=== PATIENT | female | born 1930 | race Caucasian/White ===

== ENCOUNTER 2017-02-27 14:17 | Inpatient (IN) ==
--- NOTE | 2017-02-27 14:25 | Emergency Department Note ---
Disposition Clinical Impression: Confusion Urinary tract infection Qualifiers: Urinary tract infection type: acute cystitis Hematuria presence: without hematuria Qualified Code(s): N30.00 - Acute cystitis without hematuria Disposition: Admitted As Inpatient Condition: Fair Referrals: Moreno Lara Jr, MD [Primary Care Provider] - Forms: ED Satisfaction Letter Time of Disposition: 16:11 General Adult HPI - General Chief complaint: ED Urogenital-Female Stated complaint: urinary sx Time Seen by Provider: 02/27/17 14:23 Source: patient, family Mode of arrival: EMS Limitations: no limitations Nursing Notes Reviewed: Yes Vital Signs Reviewed: Yes - History of Present Illness HPI Narrative: 86-year-old who is scheduled for a knee replacement in [place] and was told to come in and be reevaluated for possible UTI. Family member state the patient's been confused and not eating or drinking very nauseated. Concern is that she has a UTI. Onset (ago): day(s) - Related Data Home Medications Medication Instructions Recorded Confirmed Captopril 100 mg PO QAM 10/14/16 11/16/16 Multivitamin [Multivitamins] 1 tab PO DAILY 10/14/16 11/16/16 Simvastatin [Zocor] 40 mg PO QAM 10/14/16 11/16/16 Metoprolol XL (24 HR) Succ [Toprol 100 mg PO DAILY 11/16/16 11/16/16 Xl] Previous Rx's Medication Instructions Recorded Docusate [Colace] 100 mg PO BID #30 capsule 11/18/16 OxyCODONE/APAP 5/325 [Percocet 1 each PO Q6HR PRN #30 tablet 11/18/16 5/325 MG] PredniSONE 60 mg PO DAILY #15 tablet 02/02/17 Allergies Allergy/AdvReac Type Severity Reaction Status Date / Time No Known Allergies Allergy Verified 10/14/16 07:21 Constitutional: Reports: fever. Denies: chills, weakness, weight change Eyes: Denies: eye pain, eye discharge, vision change ENT ED: Denies: ear pain, throat pain, dental pain, hearing loss, epistaxis, congestion, dysphagia Cardiovascular: Denies: chest pain, palpitations, dyspnea on exertion, edema, syncope Respiratory: Denies: cough, dyspnea, wheezes, hemoptysis, stridor Gastrointestinal: Denies: abdominal pain, nausea, vomiting, diarrhea, constipation, hematemesis, melena, hematochezia Genitourinary: Reports: dysuria. Denies: frequency, hematuria, discharge Musculoskeletal: Denies: back pain, neck pain, arthralgia, myalgia Integumentary: Denies: rash, abrasion, lesions Neurological: Reports: confusion. Denies: headache, weakness, numbness, paresthesias, abnormal gait, vertigo Psychiatric: Denies: anxiety, depression, suicidal thoughts, homicidal thoughts , auditory hallucinations, visual hallucinations Endocrine: Denies: fatigue Hematological/Lymphatic: Denies: easy bleeding, easy bruising Allergic/Immunologic: Denies: facial swelling, urticaria Past Medical History - Past Medical History Medical history: Reports: arthritis, coronary artery disease, hyperlipidemia, hypertension Psychiatric history: Reports: no psych history - Social History Smoking Status: Never smoker Smokeless Tobacco Status: No Alcohol use: Reports: none Drug use: Reports: none Physical Exam - General Limitations: no limitations General appearance: alert, in no apparent distress - Head Head exam: atraumatic, normocephalic, normal inspection - Eye Eye exam: Present: normal appearance, PERRL, EOMI - ENT ENT exam: normal exam, normal oropharynx, mucous membranes moist - Neck Neck exam: Present: normal inspection, full ROM, trachea midline - Chest Chest inspection: Present: normal inspection, symmetric chest wall rise - Respiratory Respiratory exam: Present: normal lung sounds bilaterally - Cardiovascular Cardiovascular exam: Present: regular rate, normal rhythm, normal heart sounds - Abdominal Exam Abdominal exam: Present: soft, tenderness. Absent: distention, guarding, rebound, rigidity Abdominal tenderness: Present: suprapubic - Extremities Exam Extremities exam: Present: normal inspection, full ROM. Absent: tenderness, pedal edema - Expanded Lower Extremity Exam Neurovascular/Tendon exam: Absent: motor deficit, sensory deficit, tendon deficit Gait: observed and normal - Back Exam Back exam: Present: normal inspection, full ROM. Absent: tenderness - Neurological Exam Neurological exam: Present: alert, oriented X3 - Psychiatric Psychiatric exam: Present: normal affect, normal mood - Skin Skin exam: Present: warm, dry, intact, normal color Course - Reevaluation(s) Reevaluation #1: 86-year-old female who has had some increased confusion is scheduled to have an knee replacement and workup preop questionable UTI. Lab work here notes a urinary tract infection. Time: 16:12 - Consultations Consultation #1: Discussed with Dr. Hastings, admit. Time: 16:11 Vital Signs Temperature 98.2 F 02/27/17 14:21 Pulse Rate 98 02/27/17 14:21 Respiratory Rate 18 02/27/17 14:21 Blood Pressure 145/83 02/27/17 14:21 O2 Sat by Pulse Oximetry 95 02/27/17 14:21 Temperature 98.2 F 02/27/17 14:21 Pulse Rate 98 02/27/17 14:21 Respiratory Rate 18 02/27/17 14:21 Blood Pressure 145/83 02/27/17 14:21 O2 Sat by Pulse Oximetry 95 02/27/17 14:21 Oxygen Delivery Oxygen Delivery Room Air Medical Decision Making - Lab Data Lab results reviewed: Yes I reviewed the patient's lab results. Result diagrams: 02/27/17 14:30 02/27/17 14:30 Lab Results 02/27/17 02/27/17 02/27/17 Range/Units 14:30 14:30 14:30 WBC 10.7 (4.3-11.1) K/mcL RBC 2.98 L (3.82-4.97) M/mcL Hgb 9.0 L (11.5-15.4) g/dL Hct 27.8 L (35.3-44.9) % MCV 93.3 (83.0-100.0) fL MCH 30.2 (28.0-33.3) pg MCHC 32.4 (31.6-35.5) g/dL RDW 12.6 (11.5-14.5) % Plt Count 576 H (140-400) K/mcL MPV 8.8 L (9.4-12.4) fL Immature Gran % 0.7 (0-4) % Seg Neutrophils % 77.7 % Lymphocytes % 11.2 % Monocytes % 10.0 % Eosinophils % 0.2 % Basophils % 0.2 % Neutrophils # 8.3 (1.6-8.9) K/mcL Lymphocytes # 1.2 (0.6-4.6) K/mcL Monocytes # 1.1 (0.0-1.3) K/mcL Eosinophils # 0.0 (0.0-0.6) K/mcL Basophils # 0.0 (0.0-0.2) K/mcL Sodium 131 L (136-145) mEq/L Potassium 3.7 (3.5-4.5) mEq/L Chloride 96 L (98-109) mEq/L Carbon Dioxide 25 (19-29) mEq/L BUN 16 (7-20) mg/dL Creatinine 0.58 (0.57-1.11) mg/dL Est GFR ( Amer) > 60 (> 60) Est GFR (Non-Af Amer) > 60 (> 60) BUN/Creatinine Ratio 28 H (6-26) Glucose 84 (70-99) mg/dL Calculated Osmolality 272 L (280-300) Lactic Acid (0.5-2.2) mmol/L Calcium 10.0 (8.6-10.8) mg/dL Urine Color Yellow (Yellow) Urine Clarity Turbid A (Clear) Urine pH 7.0 (5.0-8.0) pH Units Ur Specific [place] 1.021 (1.010-1.025) Urine Protein 30 H (Neg-Trace) mg/dL Urine Glucose (UA) Normal (Normal) mg/dL Urine Ketones 40 H (Negative) mg/dL Urine Blood Large H (Negative) Urine Nitrite Negative (Negative) Urine Bilirubin Negative (Negative) Urine Urobilinogen Normal (Normal) mg/dL Ur Leukocyte Esterase Large H (Negative) Urine Microscopic RBC 50-100 H (0-3) per hpf Urine Microscopic WBC TNTC H (0-3) per hpf Ur Squamous Epith Cells Many H (None-Few) per lpf Amorphous Sediment Moderate H (Few) Urine Bacteria Many H (None-Few) per hpf Hyaline Casts None Seen (None-Few) per lpf Urine Yeast Few H (None Seen) per hpf Ur Culture Indicated? YES A (NO) 02/27/17 Range/Units 14:30 WBC (4.3-11.1) K/mcL RBC (3.82-4.97) M/mcL Hgb (11.5-15.4) g/dL Hct (35.3-44.9) % MCV (83.0-100.0) fL MCH (28.0-33.3) pg MCHC (31.6-35.5) g/dL RDW (11.5-14.5) % Plt Count (140-400) K/mcL MPV (9.4-12.4) fL Immature Gran % (0-4) % Seg Neutrophils % % Lymphocytes % % Monocytes % % Eosinophils % % Basophils % % Neutrophils # (1.6-8.9) K/mcL Lymphocytes # (0.6-4.6) K/mcL Monocytes # (0.0-1.3) K/mcL Eosinophils # (0.0-0.6) K/mcL Basophils # (0.0-0.2) K/mcL Sodium (136-145) mEq/L Potassium (3.5-4.5) mEq/L Chloride (98-109) mEq/L Carbon Dioxide (19-29) mEq/L BUN (7-20) mg/dL Creatinine (0.57-1.11) mg/dL Est GFR ( Amer) (> 60) Est GFR (Non-Af Amer) (> 60) BUN/Creatinine Ratio (6-26) Glucose (70-99) mg/dL Calculated Osmolality (280-300) Lactic Acid 0.9 (0.5-2.2) mmol/L Calcium (8.6-10.8) mg/dL Urine Color (Yellow) Urine Clarity (Clear) Urine pH (5.0-8.0) pH Units Ur Specific [place] (1.010-1.025) Urine Protein (Neg-Trace) mg/dL Urine Glucose (UA) (Normal) mg/dL Urine Ketones (Negative) mg/dL Urine Blood (Negative) Urine Nitrite (Negative) Urine Bilirubin (Negative) Urine Urobilinogen (Normal) mg/dL Ur Leukocyte Esterase (Negative) Urine Microscopic RBC (0-3) per hpf Urine Microscopic WBC (0-3) per hpf Ur Squamous Epith Cells (None-Few) per lpf Amorphous Sediment (Few) Urine Bacteria (None-Few) per hpf Hyaline Casts (None-Few) per lpf Urine Yeast (None Seen) per hpf Ur Culture Indicated? (NO) - Radiology Data Radiology results reviewed: Yes I reviewed the patient's radiology results. Chest X-Ray 02/27/17 14:22 IMPRESSION: No acute cardiopulmonary process. Borderline cardiomegaly. Suspected large hiatal hernia. D/ / 02/27/2017 15:55:33 Cornell De La O MD / kalina Interpreting Provider: Cornell De La O MD Head CT 02/27/17 14:22 IMPRESSION: No acute intracranial hemorrhage Underlying atrophy with periventricular and scattered frontal parietal white matter disease, likely due to small-vessel ischemic change D/ / Christopher Dick MD / Christopher Dick MD Interpreting Provider: Christopher Dick MD
[2017-02-27 14:41] LABS: Bilirubin,Urine Negative (Negative); Blood,Urine Large (Negative); Clarity,Urine Turbid (Clear); Color,Urine Yellow (Yellow); Glucose,Urine (UA) Normal (Normal); Ketones,Urine 40 mg/dL (Negative); Leukocyte Esterase,Urine Large (Negative); Nitrite,Urine Negative (Negative); Protein,Urine 30 mg/dL (Neg-Trace); Specific Gravity,Urine 1.021 (1.010-1.025); Urobilinogen,Urine Normal (Normal)
[2017-02-27 14:44] LABS: Basophils % 0.2 %; Eosinophils % 0.2 %; Hematocrit 27.8 % (35.3-44.9); Immature Granulocytes % 0.7 % (0-4); Lymphocytes # 1.2 K/mcL (0.6-4.6); Lymphocytes % 11.2 %; Mean Corpuscular HGB Conc 32.4 g/dL (31.6-35.5); Mean Corpuscular Hemoglobin 30.2 pg (28.0-33.3); Mean Corpuscular Volume 93.3 fL (83.0-100.0); Mean Platelet Volume 8.8 fL (9.4-12.4); Monocytes # 1.1 K/mcL (0.0-1.3); Neutrophils # 8.3 K/mcL (1.6-8.9); Platelet Count 576 K/mcL (140-400); Red Blood Count 2.98 M/mcL (3.82-4.97); Red Cell Distribution Width 12.6 % (11.5-14.5); Segmented Neutrophils % 77.7 %
[2017-02-27 14:46] LABS: Bacteria,Urine Many per hpf (None-Few); Hyaline Casts,Urine None Seen per lpf (None-Few); Squamous Epithelial Cell,Urine Many per lpf (None-Few); WBC,Urine TNTC per hpf (0-3)
[2017-02-27 14:58] LABS: BUN/Creatinine Ratio 28 (6-26); Blood Urea Nitrogen 16 mg/dL (7-20); Carbon Dioxide 25 mEq/L (19-29); Chloride 96 mEq/L (98-109); Glucose 84 mg/dL (70-99); Osmolality,Calculated 272 (280-300); Potassium 3.7 mEq/L (3.5-4.5); Sodium 131 mEq/L (136-145); eGFR For African Americans > 60 (> 60); eGFR For Non-African Americans > 60 (> 60)
[2017-02-27 15:00] LABS: Amorphous Sediment,Urine Moderate (Few); RBC,Urine 50-100 per hpf (0-3); Yeast,Urine Few per hpf (None Seen)
[2017-02-27] MEDS ORDERED: *HR* OxyCODONE/APAP 5/325 TABLET PO PRN (16:32)
--- NOTE | 2017-02-27 16:42 | Internal Med History&Physical ---
Date of Encounter: 03/01/17 Time of Encounter: 16:38 Assessment and Plan (1) Arthritis of left knee Current visit: Yes Status: Chronic I am not sure simply osteoarthritis. Patient mentioned that she was evaluated by several orthopedics physicians and was told that this is also arthritis. She also mentioned that our thoracentesis as well as perform more evidence of infection. However patients [employer] left knee swelling significantly reduced range of motion and left knee joint and difficult to bear waiting I have asked asked the patient and her daughter she would like further orthopedic consultation and she refused. venous doppler will be performed on LLE TO R/O dvt. Pain control with oxycodone (2) Urinary tract infection Current visit: Yes Status: Acute Ceftriaxone 1 g daily. Urine and blood culture Qualifiers: Urinary tract infection type: acute cystitis Hematuria presence: without hematuria Qualified Code(s): N30.00 - Acute cystitis without hematuria Internal Medicine - H&P: HPI Chief complaint: WEAKNESSS, VOMITING History of present illness: Ms. Bustos is a 86 year old female patient with a history of coronary artery disease status. ECI, left knee severe arthritis awaiting surgery for left total knee replacement after one week presents to the emergency room today of the weakness and vomiting. For the past couple days patient was noted to be increasingly weak and lethargic. She was feeling nauseous unable to keep any food down with episodes of nonbloody nonbelievers vomiting. She denies any abdominal pain or loin.. She has been feeling cold and has been keeping the temperature of the furnace at 80F. Workup showed evidence of tract infection. She denies any prior history of kidney stones. Patient has been complaining of pain significantly decreased range of motion and difficulty weight bearing on the left knee. She mentioned that this was investigated by our arthoracentesis which showed no evidence of infection. She was told that this is just simply osteoarthritis by several orthopedic physicians. Past Med Surg Social Fam HX - Past Medical History Medical history: arthritis, coronary artery disease, hyperlipidemia, hypertension Psychiatric history: no psych history - Social History Smoking Status: Never smoker Smokeless Tobacco Status: No Alcohol use: none Drug use: none - Family History Mother Living Status: Cause of : Heart disease Hx Family Cardiac Disorders: Yes Hx Family Respiratory Disorders: No Hx Family Cancer: No Hx Family GI Disorders: No Hx Family Genitourinary Disorders: No Hx Family Endocrine Disorder: Yes (Diabetic) Hx Family Musculoskeletal Disorders: No Hx Family Neuromuscular Disorders: No Hx Family Neurologic Disorders: No Hx Family HEENT Disorders: No Hx Family Autoimmune Disorders: No Hx Family Reproductive Disorders: No Hx Family Psychosocial Disorders: No Hx Family Medical Disorders: No Internal Medicine - H&P: Meds Captopril 50 mg PO BID 10/14/16 [History] Multivitamin [Multivitamins] 1 tab PO DAILY 10/14/16 [History] Simvastatin [Zocor] 40 mg PO HS 10/14/16 [History] Metoprolol XL (24 HR) Succ [Toprol Xl] 50 mg PO BID 11/16/16 [History] OxyCODONE/APAP 5/325 [Percocet 5/325 MG] 1 each PO Q6HR PRN #30 tablet 11/18/16 [Rx] Diclofenac Sodium [Voltaren] 4 gm TP QID PRN 02/27/17 [History] Docusate [Colace] 100 mg PO DAILY PRN 02/27/17 [History] LORazepam [Ativan] 0.5 mg PO TID PRN 02/27/17 [History] Allergies No Known Allergies Allergy (Verified 10/14/16 07:21) All Systems PM: A 10-system review of systems was performed and is negative for pertinent findings except as documented above in the HPI. Review of systems: 10 point review of systems is negative except for HPI - Constitutional Vitals: Temp Pulse Resp BP Pulse Ox 98.2 F 96 18 137/79 95 02/27/17 14:21 02/27/17 16:08 02/27/17 16:08 02/27/17 16:08 02/27/17 16:08 Exam: Gen.: patient is alert oriented not in distress. Cardiac: Normal S1 S2 no additional sounds or murmurs chest: clear to auscultation abdomen soft nontender nondistended normal bowel sounds lower extremity: lax calf muscles neuro no focal deficit bACK: nO cva TENDERNESS mUSKLOSKLETAL: left knee swelling, significantly reduced ROM, sight warmth, no redness Internal Med - H&P Results - Labs CBC & Chem 7: 03/01/17 03:20 03/01/17 03:20 Labs: Short CBC 02/27/17 Range/Units 14:30 WBC 10.7 (4.3-11.1) K/mcL Hgb 9.0 L (11.5-15.4) g/dL Hct 27.8 L (35.3-44.9) % Plt Count 576 H (140-400) K/mcL Neutrophils # 8.3 (1.6-8.9) K/mcL BMP 02/27/17 14:30 Sodium 131 L Potassium 3.7 Chloride 96 L Carbon Dioxide 25 BUN 16 Creatinine 0.58 Glucose 84 Calcium 10.0 Urine 02/27/17 Range/Units 14:30 Urine Color Yellow (Yellow) Urine Clarity Turbid A (Clear) Urine pH 7.0 (5.0-8.0) pH Units Ur Specific [place] 1.021 (1.010-1.025) Urine Protein 30 H (Neg-Trace) mg/dL Urine Glucose (UA) Normal (Normal) mg/dL - Impressions ITS Impressions Chest X-Ray 02/27/17 14:22 IMPRESSION: No acute cardiopulmonary process. Borderline cardiomegaly. Suspected large hiatal hernia. D/ / 02/27/2017 15:55:33 Cornell De La O MD / kalina Interpreting Provider: Cornell De La O MD Head CT 02/27/17 14:22 IMPRESSION: No acute intracranial hemorrhage Underlying atrophy with periventricular and scattered frontal parietal white matter disease, likely due to small-vessel ischemic change D/ / Christopher Dick MD / Christopher Dick MD Interpreting Provider: Christopher Dick MD
[2017-02-27] MEDS ORDERED: Ondansetron 4 MG/2 ML VIAL IVP PRN (16:49)
[2017-02-27 17:25] LABS: Magnesium 0.9 mg/dL (1.6-2.6)
[2017-02-27 18:10] LABS: C-Reactive Protein 138 mg/L (Less than 5)
[2017-02-27] MEDS: 0.9 % Sodium Chloride 1,000 ML IVC SCH (18:38)
[2017-02-27] MEDS: *HR* Heparin 5,000 UNIT/ML VIAL SQ SCH (19:12)
--- NOTE | 2017-02-27 20:30 | Venous Imaging Report ---
LE Venous Duplex Patient Name:Jenni Bustos Order Number:[id number] Procedure Date:02/27/2017 Date:1930ge:86 yrs Gender:Female Location:[facility] Room #: 3A21 [employer] Developer:Alberta Horvath RDCS Referring MD:Joshua Hastings MD english tutor:Moreno Lara MD Reading MD:Matias Bajwa MD , FACS Primary Indications:R/O DVT Secondary Indications: Impressions: Left lower extremity: normal superficial and deep exam. Recommendations: Preliminary given to pt SD [place]. Findings Venous Duplex Results: Left: Venous imaging of the lower extremity reveals full patency and normal vessel compressibility of the left distal iliac, left common femoral, left superficial femoral, left posterior tibial, left peroneal and left great saphenous. Doppler signals in the evaluated veins were normal. The left popliteal and left lesser saphenous veins were not assessed. Prior Study: No prior study available for comparison. Lower Extremity Venous Duplex Side Vein Compress Spontaneous Flow Augment Diameter (cm) Depth (cm) Left Distal Iliac Normal yes Phasic yes Left Common Femoral Normal yes Phasic yes Left Superficial Femoral Normal yes Phasic yes Left Popliteal Left Posterior Tibial Normal yes Phasic yes Left Peroneal Normal yes Phasic yes Left Great Saphenous Normal yes Phasic yes Left Lesser Saphenous Updated by Matias Bajwa MD, FACS on 02/27/2017 8:24:45 PM Matias Bajwa MD electronically signed on 02/27/2017 8:25:10 PM with status of Final
[2017-02-27] MEDS: *HR* Morphine 2 MG/ML SYRINGE IVP PRN (21:27)
--- NOTE | 2017-02-28 00:09 | Event Note ---
<Laureano Onofre - Last Filed: 02/28/17 01:53> Date of Encounter: 02/27/17 Time of Encounter: 11:35 Maribel Jose was called overhead. We immediately went to patient room and found her unresponsive and without pulse. Chest compressions were immediately commenced with 1 round of compressions prior to attaching the manager cardiac and her airway was secured via endotracheal intubation. At the first pulse/ rhythm check she was found to be in ventricular fibrillation and 1 defibrillation shock was delivered and she was found to have a return of spontaneous circulation. By this time her labs had already been viewed and she was noted to have a magnesium of 0.9, and she was given 2 grams of magnesium with another 2 grams ordered to run over the next hour. A dopamine drip was started in order to support her blood pressure, as she was hypotensive after achieving ROSC. She received a amiodarone bolus and an amiodarone drip was ordered, but not able to be started prior to moving her to the ICU. She had begun to move spontaneously and was having spontaneous respirations. She was moved to ICU for further management and monitoring. In the ICU, she received a central line and was continued on her previous mentioned medications with the addition of fentanyl and midazolam as sedation. <Cesar Newton - Last Filed: 03/01/17 21:02> Date of Encounter: 02/27/17 Ms. 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 Clinical findings at admission revealed a urinary tract infection as well as symptomatic osteoarthritis of her left knee. Modest fluid and electrolyte derangements were noted that due to patient's prolonged illness and a poor oral intake of solids and liquids prior to this admission. MARIBEL GAMING/response patient's bedside found her unresponsive with apparent acute cardiac and respiratory arrest. Comprehensive ACLS measures were initiated. The patient was found to be in ventricular fibrillation and received 1 defibrillation discharge with return of spontaneous pulse blood pressure and spontaneous respirations. The patient received intravenous magnesium sulfate and amiodarone loading dose and IV drip post arrest. Post arrest hypotension responded to intravenous dopamine drip. Review of screening laboratory documented severe hypomagnesemia. Additional intravenous magnesium provided as part of repletion of deficits. Further metabolic, electrolyte and acid-base deficits to be addressed. The patient was visited and examined. Review of pertinent details completed with patient's daughter/POA was initial witness at the bedside at start of cardiopulmonary arrest. I examined this patient and my medical decision-making was reviewed with the Resident Physician, Dr. Laureano Onofre. For this encounter, I have reviewed the documentation, treatment plan, and medical decision making. I agree with the documented findings, disposition and treatment plan as described except to the extent set forth below. Cumulative laboratory and radiographic database was reviewed, considered and discussed. My signature below is to certify that this patient is under my care and that I, or the Resident Physician working with me, has had a [id number] encounter with this patient. Plan of care has been reviewed and discussed in detail with the patient's daughter/POA. Questions addressed to her satisfaction and reassurance. Hospital course will be dependent on clinical findings, treatment response and potential consultative interventions. The patient is at high risk for acute clinical decline in mobility given his presenting event, she will chief complaint and findings,/advanced age and associated comorbidities. Orders written. Abnormal lab results WBC 12.6 K/mcL (4.3-11.1) H 03/01/17 03:20 RBC 2.74 M/mcL (3.82-4.97) L 03/01/17 03:20 Hgb 9.1 g/dL (11.5-15.4) L 03/01/17 12:42 Hct 27.6 % (35.3-44.9) L 03/01/17 12:42 RDW 14.6 % (11.5-14.5) H 03/01/17 03:20 Plt Count 551 K/mcL (140-400) H 03/01/17 03:20 MPV 8.7 fL (9.4-12.4) L 03/01/17 03:20 Neutrophils # 10.4 K/mcL (1.6-8.9) H 03/01/17 03:20 ESR 98 mm/hr (0-15) H 02/27/17 14:30 ABG pH 7.51 pH Units (7.32-7.45) H 02/28/17 04:45 ABG pCO2 30 mmHg (35-45) L 02/28/17 04:45 ABG pO2 111 mmHg (85-104) H 02/28/17 04:45 ABG O2 Saturation 99 % (95-98) H 02/28/17 04:45 Sodium 133 mEq/L (136-145) L 03/01/17 03:20 Creatinine 0.53 mg/dL (0.57-1.11) L 03/01/17 03:20 Glucose 108 mg/dL (70-99) H 03/01/17 03:20 POC Glucose 167 (58-89) H 02/28/17 00:15 Calculated Osmolality 276 (280-300) L 03/01/17 03:20 AST 45 Units/L (5-34) H 02/28/17 03:10 Alkaline Phosphatase 179 Units/L (38-126) H 02/28/17 03:10 Troponin I 1.00 ng/mL (0-0.03) H* 03/01/17 01:52 C-Reactive Protein 138 mg/L (Less than 5) H 02/27/17 14:30 Serum Total Protein 5.6 g/dL (6.0-8.3) L 02/28/17 03:10 Albumin 1.7 g/dL (3.5-5.0) L 02/28/17 03:10 Globulin 3.9 g/dL (2.4-3.5) H 02/28/17 03:10 Albumin/Globulin Ratio 0.4 (1.1-2.2) L 02/28/17 03:10 Urine Clarity Turbid (Clear) A 02/27/17 14:30 Urine Protein 30 mg/dL (Neg-Trace) H 02/27/17 14:30 Urine Ketones 40 mg/dL (Negative) H 02/27/17 14:30 Urine Blood Large (Negative) H 02/27/17 14:30 Ur Leukocyte Esterase Large (Negative) H 02/27/17 14:30 Urine Microscopic RBC 50-100 per hpf (0-3) H 02/27/17 14:30 Urine Microscopic WBC TNTC per hpf (0-3) H 02/27/17 14:30 Ur Squamous Epith Cells Many per lpf (None-Few) H 02/27/17 14:30 Amorphous Sediment Moderate (Few) H 02/27/17 14:30 Urine Bacteria Many per hpf (None-Few) H 02/27/17 14:30 Urine Yeast Few per hpf (None Seen) H 02/27/17 14:30 Ur Culture Indicated? YES (NO) A 02/27/17 14:30 Laboratory Last Values WBC 12.6 K/mcL (4.3-11.1) H 03/01/17 03:20 RBC 2.74 M/mcL (3.82-4.97) L 03/01/17 03:20 Hgb 9.1 g/dL (11.5-15.4) L 03/01/17 12:42 Hct 27.6 % (35.3-44.9) L 03/01/17 12:42 MCV 91.6 fL (83.0-100.0) 03/01/17 03:20 MCH 30.3 pg (28.0-33.3) 03/01/17 03:20 MCHC 33.1 g/dL (31.6-35.5) 03/01/17 03:20 RDW 14.6 % (11.5-14.5) H 03/01/17 03:20 Plt Count 551 K/mcL (140-400) H 03/01/17 03:20 MPV 8.7 fL (9.4-12.4) L 03/01/17 03:20 Immature Gran % 0.6 % (0-4) 03/01/17 03:20 Seg Neutrophils % 82.6 % 03/01/17 03:20 Lymphocytes % 7.1 % 03/01/17 03:20 Monocytes % 8.9 % 03/01/17 03:20 Eosinophils % 0.6 % 03/01/17 03:20 Basophils % 0.2 % 03/01/17 03:20 Neutrophils # 10.4 K/mcL (1.6-8.9) H 03/01/17 03:20 Lymphocytes # 0.9 K/mcL (0.6-4.6) 03/01/17 03:20 Monocytes # 1.1 K/mcL (0.0-1.3) 03/01/17 03:20 Eosinophils # 0.1 K/mcL (0.0-0.6) 03/01/17 03:20 Basophils # 0.0 K/mcL (0.0-0.2) 03/01/17 03:20 Immature Plt Fraction 1.6 % (1.1-6.1) 03/01/17 03:20 ESR 98 mm/hr (0-15) H 02/27/17 14:30 ABG pH 7.51 pH Units (7.32-7.45) H 02/28/17 04:45 ABG pCO2 30 mmHg (35-45) L 02/28/17 04:45 ABG pO2 111 mmHg (85-104) H 02/28/17 04:45 ABG HCO3 23.9 mEQ/L (21-27) 02/28/17 04:45 ABG Total CO2 24.8 mEq/L (20-26) 02/28/17 04:45 ABG O2 Saturation 99 % (95-98) H 02/28/17 04:45 ABG Base Excess 1.0 mEq/L (-2.0 to 3.0) 02/28/17 04:45 Blood Gas Modality ASSIST CONTROL 02/28/17 04:45 Inspired O2 30 % 02/28/17 04:45 Sodium 133 mEq/L (136-145) L 03/01/17 03:20 Potassium 3.6 mEq/L (3.5-4.5) 03/01/17 03:20 Chloride 101 mEq/L (98-109) 03/01/17 03:20 Carbon Dioxide 26 mEq/L (19-29) 03/01/17 03:20 BUN 11 mg/dL (7-20) 03/01/17 03:20 Creatinine 0.53 mg/dL (0.57-1.11) L 03/01/17 03:20 Est GFR ( Amer) > 60 (> 60) 03/01/17 03:20 Est GFR (Non-Af Amer) > 60 (> 60) 03/01/17 03:20 BUN/Creatinine Ratio 21 (6-26) 03/01/17 03:20 Glucose 108 mg/dL (70-99) H 03/01/17 03:20 POC Glucose 167 (58-89) H 02/28/17 00:15 Calculated Osmolality 276 (280-300) L 03/01/17 03:20 Lactic Acid 0.9 mmol/L (0.5-2.2) 02/27/17 14:30 Calcium 9.1 mg/dL (8.6-10.8) 03/01/17 03:20 Ionized Calcium 1.32 mmol/L (1.15-1.35) 02/28/17 03:10 Magnesium 2.3 mg/dL (1.6-2.6) 03/01/17 03:20 Total Bilirubin 0.2 mg/dL (0.2-1.2) 02/28/17 03:10 AST 45 Units/L (5-34) H 02/28/17 03:10 ALT 55 Units/L (0-55) 02/28/17 03:10 Alkaline Phosphatase 179 Units/L (38-126) H 02/28/17 03:10 Troponin I 1.00 ng/mL (0-0.03) H* 03/01/17 01:52 C-Reactive Protein 138 mg/L (Less than 5) H 02/27/17 14:30 Serum Total Protein 5.6 g/dL (6.0-8.3) L 02/28/17 03:10 Albumin 1.7 g/dL (3.5-5.0) L 02/28/17 03:10 Globulin 3.9 g/dL (2.4-3.5) H 02/28/17 03:10 Albumin/Globulin Ratio 0.4 (1.1-2.2) L 02/28/17 03:10 Urine Color Yellow (Yellow) 02/27/17 14:30 Urine Clarity Turbid (Clear) A 02/27/17 14:30 Urine pH 7.0 pH Units (5.0-8.0) 02/27/17 14:30 Ur Specific [place] 1.021 (1.010-1.025) 02/27/17 14:30 Urine Protein 30 mg/dL (Neg-Trace) H 02/27/17 14:30 Urine Glucose (UA) Normal mg/dL (Normal) 02/27/17 14:30 Urine Ketones 40 mg/dL (Negative) H 02/27/17 14:30 Urine Blood Large (Negative) H 02/27/17 14:30 Urine Nitrite Negative (Negative) 02/27/17 14:30 Urine Bilirubin Negative (Negative) 02/27/17 14:30 Urine Urobilinogen Normal mg/dL (Normal) 02/27/17 14:30 Ur Leukocyte Esterase Large (Negative) H 02/27/17 14:30 Urine Microscopic RBC 50-100 per hpf (0-3) H 02/27/17 14:30 Urine Microscopic WBC TNTC per hpf (0-3) H 02/27/17 14:30 Ur Squamous Epith Cells Many per lpf (None-Few) H 02/27/17 14:30 Amorphous Sediment Moderate (Few) H 02/27/17 14:30 Urine Bacteria Many per hpf (None-Few) H 02/27/17 14:30 Hyaline Casts None Seen per lpf (None-Few) 02/27/17 14:30 Urine Yeast Few per hpf (None Seen) H 02/27/17 14:30 Ur Culture Indicated? YES (NO) A 02/27/17 14:30 Blood Type A POSITIVE 02/28/17 15:00 Antibody Screen NEGATIVE 02/28/17 15:00 Crossmatch See Detail 02/28/17 15:[address] 02/27/17 14:22 IMPRESSION: No acute intracranial hemorrhage Underlying atrophy with periventricular and scattered frontal parietal white matter disease, likely due to small-vessel ischemic change D/ / Christopher Dick MD / Christopher Dick MD Interpreting Provider: Christopher Dick MD Chest X-Ray 02/28/17 00:43 IMPRESSION: 1. Right jugular central venous line placement with tip at the cavoatrial junction and no immediate complications. 2. Otherwise, stable chest x-ray. D/ / Pan Vaz MD / Pan Vaz MD Interpreting Provider: Pan Vaz MD X-Ray 02/28/17 10:08 IMPRESSION: 1. No air-filled dilated loops of bowel. 2. Enteric tube tip is partially visualized within the intrathoracic stomach. D/ / Marcella Patiño MD / Marcella Patiño MD Interpreting Provider: Marcella Patiño MD Abnormal Labs 02/27/17 02/27/17 02/27/17 14:30 14:30 14:30 WBC RBC 2.98 L Hgb 9.0 L Hct 27.8 L RDW Plt Count 576 H MPV 8.8 L Neutrophils # Monocytes # ESR ABG pH ABG pCO2 ABG pO2 ABG O2 Saturation Sodium 131 L Potassium Chloride 96 L Creatinine BUN/Creatinine Ratio 28 H Glucose POC Glucose Calculated Osmolality 272 L Magnesium 0.9 L AST Alkaline Phosphatase Troponin I C-Reactive Protein 138 H Serum Total Protein Albumin Globulin Albumin/Globulin Ratio Urine Clarity Turbid A Urine Protein 30 H Urine Ketones 40 H Urine Blood Large H Ur Leukocyte Esterase Large H Urine Microscopic RBC 50-100 H Urine Microscopic WBC TNTC H Ur Squamous Epith Cells Many H Amorphous Sediment Moderate H Urine Bacteria Many H Urine Yeast Few H Ur Culture Indicated? YES A Crossmatch 02/27/17 02/28/17 02/28/17 14:30 00:04 00:15 WBC RBC Hgb Hct RDW Plt Count MPV Neutrophils # Monocytes # ESR 98 H ABG pH ABG pCO2 ABG pO2 ABG O2 Saturation Sodium Potassium Chloride Creatinine BUN/Creatinine Ratio Glucose POC Glucose 165 H 167 H Calculated Osmolality Magnesium AST Alkaline Phosphatase Troponin I C-Reactive Protein Serum Total Protein Albumin Globulin Albumin/Globulin Ratio Urine Clarity Urine Protein Urine Ketones Urine Blood Ur Leukocyte Esterase Urine Microscopic RBC Urine Microscopic WBC Ur Squamous Epith Cells Amorphous Sediment Urine Bacteria Urine Yeast Ur Culture Indicated? Crossmatch 02/28/17 02/28/17 02/28/17 00:35 03:10 03:10 WBC 18.8 H D RBC 2.57 L Hgb 8.0 L Hct 24.2 L RDW Plt Count 562 H MPV Neutrophils # 16.5 H Monocytes # 1.4 H ESR ABG pH ABG pCO2 ABG pO2 161 H ABG O2 Saturation 100 H Sodium 130 L Potassium 3.2 L Chloride Creatinine BUN/Creatinine Ratio Glucose 185 H POC Glucose Calculated Osmolality 276 L Magnesium AST 45 H Alkaline Phosphatase 179 H Troponin I C-Reactive Protein Serum Total Protein 5.6 L Albumin 1.7 L Globulin 3.9 H Albumin/Globulin Ratio 0.4 L Urine Clarity Urine Protein Urine Ketones Urine Blood Ur Leukocyte Esterase Urine Microscopic RBC Urine Microscopic WBC Ur Squamous Epith Cells Amorphous Sediment Urine Bacteria Urine Yeast Ur Culture Indicated? Crossmatch 02/28/17 02/28/17 02/28/17 04:45 09:45 14:05 WBC RBC Hgb 7.8 L Hct 23.6 L RDW Plt Count MPV Neutrophils # Monocytes # ESR ABG pH 7.51 H ABG pCO2 30 L ABG pO2 111 H ABG O2 Saturation 99 H Sodium Potassium Chloride Creatinine BUN/Creatinine Ratio Glucose POC Glucose Calculated Osmolality Magnesium AST Alkaline Phosphatase Troponin I 1.14 H* C-Reactive Protein Serum Total Protein Albumin Globulin Albumin/Globulin Ratio Urine Clarity Urine Protein Urine Ketones Urine Blood Ur Leukocyte Esterase Urine Microscopic RBC Urine Microscopic WBC Ur Squamous Epith Cells Amorphous Sediment Urine Bacteria Urine Yeast Ur Culture Indicated? Crossmatch 02/28/17 02/28/17 02/28/17 15:00 20:45 20:45 WBC 12.1 H RBC 2.80 L Hgb 8.4 L Hct 25.7 L RDW Plt Count 476 H MPV 8.7 L Neutrophils # 9.5 H Monocytes # ESR ABG pH ABG pCO2 ABG pO2 ABG O2 Saturation Sodium Potassium Chloride Creatinine BUN/Creatinine Ratio Glucose POC Glucose Calculated Osmolality Magnesium AST Alkaline Phosphatase Troponin I 1.03 H* C-Reactive Protein Serum Total Protein Albumin Globulin Albumin/Globulin Ratio Urine Clarity Urine Protein Urine Ketones Urine Blood Ur Leukocyte Esterase Urine Microscopic RBC Urine Microscopic WBC Ur Squamous Epith Cells Amorphous Sediment Urine Bacteria Urine Yeast Ur Culture Indicated? Crossmatch See Detail 03/01/17 03/01/17 03/01/17 01:52 03:20 03:20 WBC 12.6 H RBC 2.74 L Hgb 8.3 L Hct 25.1 L RDW 14.6 H Plt Count 551 H MPV 8.7 L Neutrophils # 10.4 H Monocytes # ESR ABG pH ABG pCO2 ABG pO2 ABG O2 Saturation Sodium 133 L Potassium Chloride Creatinine 0.53 L BUN/Creatinine Ratio Glucose 108 H POC Glucose Calculated Osmolality 276 L Magnesium AST Alkaline Phosphatase Troponin I 1.00 H* C-Reactive Protein Serum Total Protein Albumin Globulin Albumin/Globulin Ratio Urine Clarity Urine Protein Urine Ketones Urine Blood Ur Leukocyte Esterase Urine Microscopic RBC Urine Microscopic WBC Ur Squamous Epith Cells Amorphous Sediment Urine Bacteria Urine Yeast Ur Culture Indicated? Crossmatch 03/01/17 12:42 WBC RBC Hgb 9.1 L Hct 27.6 L RDW Plt Count MPV Neutrophils # Monocytes # ESR ABG pH ABG pCO2 ABG pO2 ABG O2 Saturation Sodium Potassium Chloride Creatinine BUN/Creatinine Ratio Glucose POC Glucose Calculated Osmolality Magnesium AST Alkaline Phosphatase Troponin I C-Reactive Protein Serum Total Protein Albumin Globulin Albumin/Globulin Ratio Urine Clarity Urine Protein Urine Ketones Urine Blood Ur Leukocyte Esterase Urine Microscopic RBC Urine Microscopic WBC Ur Squamous Epith Cells Amorphous Sediment Urine Bacteria Urine Yeast Ur Culture Indicated? Crossmatch
[2017-02-28] MEDS ORDERED: *HR* Midazolam HCl 5 MG/5 ML VIAL IVP ONE ×3 (00:37→08:24)
[2017-02-28 00:41] LABS: ABG HCO3 23.5 mEQ/L (21-27); ABG Oxygen Saturation 100 % (95-98); ABG PCO2 37 mmHg (35-45); ABG PH 7.41 pH Units (7.32-7.45); ABG PO2 161 mmHg (85-104); ABG TCO2 24.6 mEq/L (20-26)
[2017-02-28 00:42] LABS: Blood Gas FiO2 100 %
[2017-02-28] MEDS ORDERED: FentaNYL (PF) 1,000 MCG in 0.9 % Sodium Chloride 80 ML IVC SCH (01:30)
--- NOTE | 2017-02-28 01:32 | Procedure Note ---
<Abimbola Stephen - Last Filed: 02/28/17 01:27> Date of procedure: 02/28/17 Pre-op diagnosis: cardiopulmonary arrest Post-op diagnosis: same Procedure: central venous cannulation -jugular Central Venous Catheter (CVC, Central Line) Placement Date: 02.28.17 Time: 1:15am Indication: Hemodynamic monitoring/Intravenous access Resident: Abimbola Stephen Attending: Jamie CHAVIS A time-out was completed verifying correct patient, procedure, site, positioning , and special equipment if applicable. The patient was placed in a dependent position appropriate for central line placement based on the vein to be cannulated. The patients <right/left> < neck/shoulder/groin> was prepped and draped in sterile fashion. 1% Lidocaine was used to anesthetize the surrounding skin area. A triple lumen <9-Armenian> Cordis catheter was introduced into the the <subclavian/internal jugular/common femoral vein> using the Seldinger technique <and under ultrasound guidance>. The catheter was threaded smoothly over the guide wire and appropriate blood return was obtained. Each lumen of the catheter was evacuated of air and flushed with sterile saline. The catheter was then sutured in place to the skin and a sterile dressing applied. Perfusion to the extremity distal to the point of catheter insertion was checked and found to be adequate. <Attending/Resident> was present for the entire procedure. Estimated Blood Loss: 1cc e patient tolerated the procedure well and there were no complications Surgeon: Abimbola Stephen Water Plumber: Laureano Onofre Estimated blood loss (cc): 1 Pathology: none sent Condition: stable Disposition: ICU <Ethan Ramirez - Last Filed: 02/28/17 05:23> - Attending Attestation I examined this patient and my medical decision-making was reviewed with the CARGO AND CONTAINER INSPECTOR/PA/Advanced Practice Nurse/Resident Physician. I agree with the documented findings, disposition and treatment plan as described except to the extent set forth below. Central line placed. I was present during the procedure in its entirety.
[2017-02-28] MEDS: 0.9 % Sodium Chloride 1,000 ML IVC SCH (02:40)
[2017-02-28 04:05] LABS: Basophils % 0.1 %; Hematocrit 24.2 % (35.3-44.9); Lymphocytes # 0.7 K/mcL (0.6-4.6); Lymphocytes % 3.6 %; Mean Corpuscular HGB Conc 33.1 g/dL (31.6-35.5); Mean Corpuscular Hemoglobin 31.1 pg (28.0-33.3); Mean Corpuscular Volume 94.2 fL (83.0-100.0); Mean Platelet Volume 9.4 fL (9.4-12.4); Monocytes # 1.4 K/mcL (0.0-1.3); Monocytes % 7.6 %; Neutrophils # 16.5 K/mcL (1.6-8.9); Platelet Count 562 K/mcL (140-400); Red Blood Count 2.57 M/mcL (3.82-4.97); Red Cell Distribution Width 12.8 % (11.5-14.5); Segmented Neutrophils % 87.7 %
[2017-02-28 04:20] LABS: Ionized Calcium 1.32 mmol/L (1.15-1.35)
[2017-02-28 04:21] LABS: Alanine Aminotransferase 55 Units/L (0-55); Albumin/Globulin Ratio 0.4 (1.1-2.2); Alkaline Phosphatase 179 Units/L (38-126); Aspartate Amino Transferase 45 Units/L (5-34); BUN/Creatinine Ratio 25 (6-26); Bilirubin,Total 0.2 mg/dL (0.2-1.2); Blood Urea Nitrogen 17 mg/dL (7-20); Calcium 8.8 mg/dL (8.6-10.8); Carbon Dioxide 22 mEq/L (19-29); Chloride 98 mEq/L (98-109); Globulin 3.9 g/dL (2.4-3.5); Glucose 185 mg/dL (70-99); Magnesium 2.1 mg/dL (1.6-2.6); Osmolality,Calculated 276 (280-300); Potassium 3.2 mEq/L (3.5-4.5); Sodium 130 mEq/L (136-145); Total Protein 5.6 g/dL (6.0-8.3); eGFR For African Americans > 60 (> 60); eGFR For Non-African Americans > 60 (> 60)
[2017-02-28 04:23] LABS: Albumin 1.7 g/dL (3.5-5.0)
[2017-02-28] MEDS: *HR* Heparin 5,000 UNIT/ML VIAL SQ SCH (04:57)
[2017-02-28 05:00] LABS: ABG HCO3 23.9 mEQ/L (21-27); ABG Oxygen Saturation 99 % (95-98); ABG PCO2 30 mmHg (35-45); ABG PH 7.51 pH Units (7.32-7.45); ABG PO2 111 mmHg (85-104); ABG TCO2 24.8 mEq/L (20-26)
[2017-02-28 05:01] LABS: Blood Gas FiO2 30 %
[2017-02-28] MEDS ORDERED: Potassium Chloride 40 MEQ, Lidocaine 1% 2 ML in D5% in Water 500 ML IVPB ONE (05:21)
[2017-02-28] MEDS ORDERED: Amiodarone Premix 360 MG/200 ML BAG IVC ONE (06:45)
--- NOTE | 2017-02-28 06:59 | Pulmonology Consult Note ---
<MiguelRonny W - Last Filed: 02/28/17 10:03> Date of Encounter: 02/27/17 Medications and Allergies Captopril 50 mg PO BID 10/14/16 [History] Multivitamin [Multivitamins] 1 tab PO DAILY 10/14/16 [History] Simvastatin [Zocor] 40 mg PO HS 10/14/16 [History] Metoprolol XL (24 HR) Succ [Toprol Xl] 50 mg PO BID 11/16/16 [History] OxyCODONE/APAP 5/325 [Percocet 5/325 MG] 1 each PO Q6HR PRN #30 tablet 11/18/16 [Rx] Diclofenac Sodium [Voltaren] 4 gm TP QID PRN 02/27/17 [History] Docusate [Colace] 100 mg PO DAILY PRN 02/27/17 [History] LORazepam [Ativan] 0.5 mg PO TID PRN 02/27/17 [History] Allergies No Known Allergies Allergy (Verified 10/14/16 07:21) All Systems: A 10-system review of systems was performed and is negative for pertinent findings except as documented above in the HPI. Physical Examination Vital Signs: Vital Signs, Last 4 Hours Resp BP Pulse Ox 02/28/17 08:52 11 105/58 98 Ventilator Settings Ventilator Settings: Ventilator Settings, Last 8 Hours Ventilator Mode CPAP Actual Respiratory Rate 11 Positive End Expiratory 5 Pressure Peak Inspiratory Airway 16 Pressure Results - Laboratory Findings CBC and BMP: 02/28/17 03:10 02/28/17 03:10 ABG ABG pH 7.51 pH Units (7.32-7.45) H 02/28/17 04:45 ABG pCO2 30 mmHg (35-45) L 02/28/17 04:45 ABG pO2 111 mmHg (85-104) H 02/28/17 04:45 ABG O2 Saturation 99 % (95-98) H 02/28/17 04:45 Abnormal lab findings: Abnormal lab results WBC 18.8 K/mcL (4.3-11.1) H D 02/28/17 03:10 RBC 2.57 M/mcL (3.82-4.97) L 02/28/17 03:10 Hgb 8.0 g/dL (11.5-15.4) L 02/28/17 03:10 Hct 24.2 % (35.3-44.9) L 02/28/17 03:10 Plt Count 562 K/mcL (140-400) H 02/28/17 03:10 Neutrophils # 16.5 K/mcL (1.6-8.9) H 02/28/17 03:10 Monocytes # 1.4 K/mcL (0.0-1.3) H 02/28/17 03:10 ESR 98 mm/hr (0-15) H 02/27/17 14:30 ABG pH 7.51 pH Units (7.32-7.45) H 02/28/17 04:45 ABG pCO2 30 mmHg (35-45) L 02/28/17 04:45 ABG pO2 111 mmHg (85-104) H 02/28/17 04:45 ABG O2 Saturation 99 % (95-98) H 02/28/17 04:45 Sodium 130 mEq/L (136-145) L 02/28/17 03:10 Potassium 3.2 mEq/L (3.5-4.5) L 02/28/17 03:10 Glucose 185 mg/dL (70-99) H 02/28/17 03:10 POC Glucose 167 (58-89) H 02/28/17 00:15 Calculated Osmolality 276 (280-300) L 02/28/17 03:10 AST 45 Units/L (5-34) H 02/28/17 03:10 Alkaline Phosphatase 179 Units/L (38-126) H 02/28/17 03:10 C-Reactive Protein 138 mg/L (Less than 5) H 02/27/17 14:30 Serum Total Protein 5.6 g/dL (6.0-8.3) L 02/28/17 03:10 Albumin 1.7 g/dL (3.5-5.0) L 02/28/17 03:10 Globulin 3.9 g/dL (2.4-3.5) H 02/28/17 03:10 Albumin/Globulin Ratio 0.4 (1.1-2.2) L 02/28/17 03:10 Urine Clarity Turbid (Clear) A 02/27/17 14:30 Urine Protein 30 mg/dL (Neg-Trace) H 02/27/17 14:30 Urine Ketones 40 mg/dL (Negative) H 02/27/17 14:30 Urine Blood Large (Negative) H 02/27/17 14:30 Ur Leukocyte Esterase Large (Negative) H 02/27/17 14:30 Urine Microscopic RBC 50-100 per hpf (0-3) H 02/27/17 14:30 Urine Microscopic WBC TNTC per hpf (0-3) H 02/27/17 14:30 Ur Squamous Epith Cells Many per lpf (None-Few) H 02/27/17 14:30 Amorphous Sediment Moderate (Few) H 02/27/17 14:30 Urine Bacteria Many per hpf (None-Few) H 02/27/17 14:30 Urine Yeast Few per hpf (None Seen) H 02/27/17 14:30 Ur Culture Indicated? YES (NO) A 02/27/17 14:30 Consult Discharge Plan - Plan Referrals: Moreno Lara Jr, MD [Primary Care Provider] - - Attending Attestation I examined this patient and my medical decision-making was reviewed with the AQUATIC LABORER/PA/Advanced Practice Nurse/Resident Physician. I agree with the documented findings, disposition and treatment plan as described except to the extent set forth below. Patient seen and examined at bedside Labs, radiology, chart personally reviewed. All lines examined without evidence of infection. Neuropsych: awake and alert follows commands. pain control for left knee pain. Pulm: INtubated during code. CXR no acute process. reassuring SBT parameters today after completeion of PAP trial. Plan to liberate. Cards: s/p AC LS with ROSC. Vetnricular rhythm likely s/t electrolyte abnormality. History of CAD. Consult cardiology.. ECHO based upon recs. ECG today trend troponin. avoid QT prolongating meds . Started on Amiodarone. FEN-GI: PPI prophylaxis given while on vent. Nasuea and Vomiting. but no significant output from OG tube. Chekc KUB Renal:. No JOSEFA. Lytes replaced. Goal mg+ =2.5 K+ 4.5 ID: Concern for UTI. ON ceftriaxone. Increase in WBC count likely stress response vs Sepsis. Heme/Onc: cont dVT propylaxis. slight drop in H/H likely dilution vs stress drop. no evidence of active bleeding. Endo: glucose monitored Integ/MSK: skin care per CODE: Full Code. <Ryne Olivas - Last Filed: 02/28/17 13:51> Date of Encounter: 02/28/17 Time of Encounter: 06:58 Assessment and Plan (1) Ventricular fibrillation Current Visit: Yes Status: Acute Patient had ventricular fibrillation arrest during code, received 1x defibrillation, had ROSC, received amio bolus and currently on amio drip, she has hx of CAD with stent placement in 2000, last echo was few days ago with normal LV and RV function with mild to moderate valvular dysfunction, likely this was due to electrolytes abnormalities of hypomagnesemia and hypokalemia in a setting of malnutrition/poor po intakes for last few weeks, magnesium improved from 0.9 to 2.1 after IV mag supplementation and currently she is on IV potassium replacement, initial level was 3.2, EKG this AM showed nonspecific ST changes in V4 to V6, elevated troponin could be from CPR, limited ECHO has been ordered by cardiology, will con't amio drip until echo comes back, trend troponin, con't to monitor her labs and VS. (2) Urinary tract infection Current Visit: Yes Status: Acute Urine culture showed gram negative mukesh, currently on rocephin IV, will adjust abx based on final sensitivity report. Qualifiers: Urinary tract infection type: acute cystitis Hematuria presence: without hematuria Qualified Code(s): N30.00 - Acute cystitis without hematuria (3) Hypomagnesemia Current Visit: Yes Status: Acute Initially it was 0.9, after 2gm of IV mag replacement, the level improved to 2.1 , hypomag likely 2/2 recent poor appetite/malnutrition, no recent diarrhea, will con't to monitor her magnesium level. (4) Elevated troponin Current Visit: Yes Status: Acute Could be from CPR, EKG showed no specific ST changes in V4 to 6, will con't to trend it, limited echo pending. (5) CAD (coronary artery disease) Current Visit: Yes Status: Acute Hx of CAD with stent placement in 2000, echo two days ago showed normal LV and RV function with mild to moderate valvular dysfunctions, will con't to trend tropoinin, EKG showed no specific ST changes in V4 to 6, cardiology on board, limited echo is pending at this time. Qualifiers: Coronary Disease-Associated Artery/Lesion type: [place] artery [place] vs. transplanted heart: [place] heart Associated angina: without angina Qualified Code(s): I25.10 - Atherosclerotic heart disease of [place] coronary artery without angina pectoris (6) Hypokalemia Current Visit: Yes Status: Acute Initial level is 3.2, currently receiving potassium IV supplement, will repeat level today, goal is more than 4, this is likely 2/2 recent poor appetite/ malnutrition. (7) Arthritis of left knee Current Visit: Yes Status: Chronic Pt was suppose to have total left knee replacement surgery next week for severe OA of left knee, will con't current pain med regimen, f/u with her orthopedic doctor as outpt. (8) Anemia Current Visit: Yes Status: Acute Hgb is 8.0 this AM, yesterday was 9.0, likely dilutional from IV fluids she received, will recheck in AM, no sign of active bleeding, hemodynamically stable. Qualifiers: Qualified Code(s): D64.9 - Anemia, unspecified (9) Leukocytosis Current Visit: Yes Status: Acute Initially when she came in, it was 10.7, after CPR, increased to 18.8, likely reactive from CPR, currently she is on IV abx for UTI, will repeat level in AM. Qualifiers: Qualified Code(s): D72.829 - Elevated white blood cell count, unspecified (10) DVT prophylaxis Current Visit: Yes Status: Acute IPC. History of Present Illness Consult date: 02/28/17 Requesting physician: Laureano Onofre Reason for consult: other (s/p cardiac arrest, intubated) Chief complaint: S/p cardiac arrest, ROSC, intubated History of present illness: This is a 86-year-old female with history of coronary artery disease, hyperlipidemia, hypertension, rectal prolapse and and left knee osteoarthritis who presented to the ER with chief complaint of poor appetite, nausea/vomiting and worsening generalized weakness over the last 2-3 weeks, admitted to the hospital for UTI. Overnight patient was found unresponsive without pulse therefore CODE AMBERLY was called and CPR was started. After 1 round of CPR patient was intubated first rhythm check showed ventricular fibrillation therefore she received one defibrillation shock and she had return of spontaneous circulation. The initial labs showed low magnesium level of 0.9 and hypokalemia of 3.2. Initially dopamine drip was started and this was stopped around 4 AM this morning and she received amiodarone bolus and currently only amiodarone drip. Patient received IV magnesium and currently receiving potassium IV supplement. After the code the patient was transferred to ICU for close monitoring. Past Med Surg Social Fam HX - Past Medical History Medical history: arthritis, coronary artery disease, hyperlipidemia, hypertension Psychiatric history: no psych history - Social History Smoking Status: Never smoker Smokeless Tobacco Status: No Alcohol use: none Drug use: none - Family History Mother Living Status: Cause of : Heart disease Hx Family Cardiac Disorders: Yes Hx Family Respiratory Disorders: No Hx Family Cancer: No Hx Family GI Disorders: No Hx Family Genitourinary Disorders: No Hx Family Endocrine Disorder: Yes (Diabetic) Hx Family Musculoskeletal Disorders: No Hx Family Neuromuscular Disorders: No Hx Family Neurologic Disorders: No Hx Family HEENT Disorders: No Hx Family Autoimmune Disorders: No Hx Family Reproductive Disorders: No Hx Family Psychosocial Disorders: No Hx Family Medical Disorders: No ROS unobtainable: due to endotracheal tube All Systems: A 10-system review of systems was performed and is negative for pertinent findings except as documented above in the HPI. Physical Examination Vital Signs: Vital Signs, Last 4 Hours Temp Pulse Resp BP Pulse Ox 02/28/17 06:20 13 98 02/28/17 06:01 68 12 90/56 98 02/28/17 05:00 75 12 92/57 98 02/28/17 04:52 83 13 93/56 100 02/28/17 04:00 83 13 93/56 100 02/28/17 03:00 98.0 F 130 13 96/54 98 General appearance: no acute distress, other (On IV sedation) Eyes: nonicteric ENT: oropharynx moist Neck: supple Effort: normal Inspection: normal Auscultation: bilateral: clear Cardiovascular: regular rate and rhythm Gastrointestinal: normoactive bowel sounds, soft, non-distended Integumentary: normal Extremities: no cyanosis, no edema, no clubbing Musculoskeletal: no deformities pupils equal and round, other (On IV sedation) Ventilator Settings Ventilator Settings: Ventilator Settings, Last 8 Hours Ventilator Mode A/C Ventilator Mode A/C Ventilator Mode A/C Ventilator Mode A/C Ventilator Mode A/C Ventilator Mode A/C Ventilator Tidal Volume 450 Setting Ventilator Tidal Volume 450 Setting Ventilator Tidal Volume 500 Setting Ventilator Tidal Volume 500 Setting Ventilator Tidal Volume 500 Setting Ventilator Tidal Volume 500 Setting Ventilator Tidal Volume 500 Setting Ventilator Tidal Volume 500 Setting Ventilator Respiratory Rate 12 Setting Ventilator Respiratory Rate 12 Setting Ventilator Respiratory Rate 12 Setting Ventilator Respiratory Rate 12 Setting Ventilator Respiratory Rate 12 Setting Ventilator Respiratory Rate 12 Setting Ventilator Respiratory Rate 12 Setting Ventilator Respiratory Rate 12 Setting Actual Respiratory Rate 12 Actual Respiratory Rate 13 Actual Respiratory Rate 13 Actual Respiratory Rate 13 Actual Respiratory Rate 14 Actual Respiratory Rate 12 Positive End Expiratory 5 Pressure Positive End Expiratory 5 Pressure Positive End Expiratory 5 Pressure Positive End Expiratory 5 Pressure Positive End Expiratory 5 Pressure Positive End Expiratory 5 Pressure Peak Inspiratory Airway 24 Pressure Peak Inspiratory Airway 28 Pressure Peak Inspiratory Airway 27 Pressure Results - Laboratory Findings CBC and BMP: 02/28/17 03:10 02/28/17 03:10 ABG ABG pH 7.51 pH Units (7.32-7.45) H 02/28/17 04:45 ABG pCO2 30 mmHg (35-45) L 02/28/17 04:45 ABG pO2 111 mmHg (85-104) H 02/28/17 04:45 ABG O2 Saturation 99 % (95-98) H 02/28/17 04:45 Abnormal lab findings: Abnormal lab results WBC 18.8 K/mcL (4.3-11.1) H D 02/28/17 03:10 RBC 2.57 M/mcL (3.82-4.97) L 02/28/17 03:10 Hgb 8.0 g/dL (11.5-15.4) L 02/28/17 03:10 Hct 24.2 % (35.3-44.9) L 02/28/17 03:10 Plt Count 562 K/mcL (140-400) H 02/28/17 03:10 Neutrophils # 16.5 K/mcL (1.6-8.9) H 02/28/17 03:10 Monocytes # 1.4 K/mcL (0.0-1.3) H 02/28/17 03:10 ESR 98 mm/hr (0-15) H 02/27/17 14:30 ABG pH 7.51 pH Units (7.32-7.45) H 02/28/17 04:45 ABG pCO2 30 mmHg (35-45) L 02/28/17 04:45 ABG pO2 111 mmHg (85-104) H 02/28/17 04:45 ABG O2 Saturation 99 % (95-98) H 02/28/17 04:45 Sodium 130 mEq/L (136-145) L 02/28/17 03:10 Potassium 3.2 mEq/L (3.5-4.5) L 02/28/17 03:10 Glucose 185 mg/dL (70-99) H 02/28/17 03:10 POC Glucose 167 (58-89) H 02/28/17 00:15 Calculated Osmolality 276 (280-300) L 02/28/17 03:10 AST 45 Units/L (5-34) H 02/28/17 03:10 Alkaline Phosphatase 179 Units/L (38-126) H 02/28/17 03:10 C-Reactive Protein 138 mg/L (Less than 5) H 02/27/17 14:30 Serum Total Protein 5.6 g/dL (6.0-8.3) L 02/28/17 03:10 Albumin 1.7 g/dL (3.5-5.0) L 02/28/17 03:10 Globulin 3.9 g/dL (2.4-3.5) H 02/28/17 03:10 Albumin/Globulin Ratio 0.4 (1.1-2.2) L 02/28/17 03:10 Urine Clarity Turbid (Clear) A 02/27/17 14:30 Urine Protein 30 mg/dL (Neg-Trace) H 02/27/17 14:30 Urine Ketones 40 mg/dL (Negative) H 02/27/17 14:30 Urine Blood Large (Negative) H 02/27/17 14:30 Ur Leukocyte Esterase Large (Negative) H 02/27/17 14:30 Urine Microscopic RBC 50-100 per hpf (0-3) H 02/27/17 14:30 Urine Microscopic WBC TNTC per hpf (0-3) H 02/27/17 14:30 Ur Squamous Epith Cells Many per lpf (None-Few) H 02/27/17 14:30 Amorphous Sediment Moderate (Few) H 02/27/17 14:30 Urine Bacteria Many per hpf (None-Few) H 02/27/17 14:30 Urine Yeast Few per hpf (None Seen) H 02/27/17 14:30 Ur Culture Indicated? YES (NO) A 02/27/17 14:30 - Clinical Findings Intake & Output: Intake & Output 02/27/17 02/27/17 02/28/17 15:59 23:59 07:59 Intake Total 100 / 100 1063 / 1063 Output Total 100 / 100 Balance 100 / 100 963 / 963
[2017-02-28] MEDS ORDERED: *HR* Amiodarone Premix 360 MG/200 ML BAG IVC ONE (08:49)
[2017-02-28] MEDS ORDERED: *HR* Magnesium Sulfate 2 GM/50 ML PIGGYBACK IVPB ONE (08:49)
[2017-02-28] MEDS ORDERED: *HR* Amiodarone Premix 150 MG/100 ML BAG IVPB ONE (08:49)
[2017-02-28] MEDS ORDERED: Famotidine 20 MG/2 ML VIAL IVP SCH (09:00)
--- NOTE | 2017-02-28 10:03 | Cardiology Consult Note ---
<Harley Quiñonez - Last Filed: 02/28/17 10:51> Date of Encounter: 02/27/17 Time of Encounter: 10:00 Assessment and Plan (1) Ventricular fibrillation Current Visit: Yes Status: Acute Per Cardiology: Patient with apparent V. fib arrest requiring one to defibrillation. Rhythm strips reviewed and discussed with Dr. Botello, one strip noted to show what appears to be VF with one shock. No other strips available for review other than strips a few minutes later showing sinus rhythm with PACs. Occurred in setting of hypomagnesemia and hypokalemia. No recurrence noted on telemetry. Recommend continue to monitor telemetry. Replace magnesium and potassium. Recent echo showed EF preserved at 55-60% February 26, 2017. Will check limited echo for evaluation of EF. Currently on amiodarone drip, further recs pending echo results. (2) Hypomagnesemia Current Visit: Yes Status: Acute Per Cardiology: Magnesium noted to be 0.9 upon admission, replaced overnight and up to 2.1. Patient reports decreased by mouth intake and appetite due to nausea the past few weeks. Had recent colon resection October 2016. Continue to monitor. Suspect contributed cause to her suspected V. fib arrest. Will monitor Mg, target > 2.0. (3) Hypokalemia Current Visit: Yes Status: Acute Per Cardiology: Most recent K+ = 3.2, s/p K rider this am. Will check K+. Target > 4.0. (4) Atrial arrhythmia Current Visit: Yes Status: Acute Per Cardiology: No known history of A. fib. One rhythm strip reviewed showed atrial tachycardia versus atrial flutter versus atrial fibrillation in the 150s. Reviewed with Dr. Botello. We'll continue to monitor telemetry. On amiodarone drip status post VF arrest. No clinical indication to anticoagulate at this juncture. Additionally, patient noted to have decreased H&H. She denies any active bleeding or blood loss. We'll continue to monitor. (5) Anemia Current Visit: Yes Status: Acute Per Cardiology: H&H overall down since 10/2016. Currently 8.0/24.2. Discontinue subcutaneous heparin. Apply bilateral SCDs for DVT prophylaxis. Qualifiers: Anemia type: unspecified type Qualified Code(s): D64.9 - Anemia, unspecified (6) CAD (coronary artery disease) Current Visit: Yes Status: Acute Per Cardiology: History of CAD with stenting 1 in 2000. Chest pain free. Echo completed an outpatient setting 2 days ago for preop showed EF preserved 55-60%, mild diastolic dysfunction, moderate severe dilated left atrium, mild to moderate aortic stenosis, mild aortic regurgitation, mild to moderate MS, mild to moderate MR, moderate TR, moderate pulmonary hypertension, apical inferior and apical septal [place] hypokinetic. Trop 1.14-- however obtained status post defibrillation. ECG does show some mild ST depression in V leads. Check a limited echo to reassess EF status post event. At this juncture do not suspect non-STEMI and no cardiac rehabilitation warranted at this time. Qualifiers: Coronary Disease-Associated Artery/Lesion type: [place] artery [place] vs. transplanted heart: [place] heart Associated angina: without angina Qualified Code(s): I25.10 - Atherosclerotic heart disease of [place] coronary artery without angina pectoris (7) Urinary tract infection Current Visit: Yes Status: Acute Per Cardiology: On antibiotics. Managed by primary service. Qualifiers: Urinary tract infection type: acute cystitis Hematuria presence: without hematuria Qualified Code(s): N30.00 - Acute cystitis without hematuria (8) Arthritis of left knee Current Visit: Yes Status: Chronic Per Cardiology: Reports pending left knee surgery in [place] next week. Anticipate surgery may need postponed at this time. Discussion w patient/family: The assessment and plan as outlined above was discussed with the patient who expressed understanding and agreement. All questions were answered. Thank you for involving us in the care of your patient. Please call with any questions. History of Present Illness Consult date: 02/28/17 Requesting physician: Ryne Olivas Consult reason: VF Arrest, Elevated Trop Chief complaint: Nausea History of present illness: Ms. Bustos is a 86 year old female with a relevant past medical history of CAD with 1 stent in 2000, osteoarthritis, status post recent colon resection with rectopexy 10/2016, HTN, and HLD. Pending left knee surgery scheduled for next week at [place]. Cardiology consult for V. fib arrest and elevated troponin. Patient seen this morning status post extubation. Patient unsure of what exactly occurred. She denied any chest pain, shortness of breath, palpitations. Prior to admission denies any chest pain as well. She reports decreased appetite due to nausea over the past 2-3 weeks. She denies any abdominal pain or diarrhea. Reports had echo completed recently by Dr. Dickson for preop clearance for pending left knee surgery scheduled for next week. Prior to hospitalization she denies any palpitations, dizziness, syncope, falls. Denies any active bleeding or blood loss. Reports severe left knee pain. Past Med Surg Social Fam HX - Past Medical History Attestation: Yes The following information was validated with the patient. Source: patient, old records reviewed Medical history: arthritis, coronary artery disease, hyperlipidemia, hypertension Psychiatric history: no psych history - Social History Smoking Status: Never smoker Smokeless Tobacco Status: No Alcohol use: none Drug use: none - Family History Mother Living Status: Cause of : Heart disease Hx Family Cardiac Disorders: Yes Hx Family Respiratory Disorders: No Hx Family Cancer: No Hx Family GI Disorders: No Hx Family Genitourinary Disorders: No Hx Family Endocrine Disorder: Yes (Diabetic) Hx Family Musculoskeletal Disorders: No Hx Family Neuromuscular Disorders: No Hx Family Neurologic Disorders: No Hx Family HEENT Disorders: No Hx Family Autoimmune Disorders: No Hx Family Reproductive Disorders: No Hx Family Psychosocial Disorders: No Hx Family Medical Disorders: No Medications and Allergies Captopril 50 mg PO BID 10/14/16 [History] Multivitamin [Multivitamins] 1 tab PO DAILY 10/14/16 [History] Simvastatin [Zocor] 40 mg PO HS 10/14/16 [History] Metoprolol XL (24 HR) Succ [Toprol Xl] 50 mg PO BID 11/16/16 [History] OxyCODONE/APAP 5/325 [Percocet 5/325 MG] 1 each PO Q6HR PRN #30 tablet 11/18/16 [Rx] Diclofenac Sodium [Voltaren] 4 gm TP QID PRN 02/27/17 [History] Docusate [Colace] 100 mg PO DAILY PRN 02/27/17 [History] LORazepam [Ativan] 0.5 mg PO TID PRN 02/27/17 [History] Allergies No Known Allergies Allergy (Verified 10/14/16 07:21) All Systems Review: A 10-system review of systems was performed and is negative for pertinent findings except as documented above in the HPI. - Cardiovascular Cardiovascular: as per HPI - Gastrointestinal Gastrointestinal: nausea, other (Decreased appetite) - Musculoskeletal Musculoskeletal: arthralgias, other (Left knee pain) Physical Examination Vital Signs, Last 4 Hours Pulse Resp BP Pulse Ox 02/28/17 09:00 85 21 113/61 98 02/28/17 08:52 11 105/58 98 General: Conversant, No Apparent Distress HEENT: Atraumatic, Normocephaly, Mucus Membranes Moist Neck: No JVD, Normal carotid pulses Cardiac: Reg Rate and Rhythm, Normal S1 and S2, No Murmur Lungs: Normal Breath Sounds, No Wheeze, Rales, Rhonchi Neuro: Alert and responsive, No focal deficits noted Abdomen: Soft, Non-Tender, Other (Positive bowel sounds 4 quadrants) Skin: No rashes noted on visualized skin Musculoskeletal: No Chest Wall Tenderness, Other (Left knee pain with movement) Extremities: No Edema, Normal Pulses Results 02/28/17 03:10 02/28/17 03:10 Laboratory Tests 11/11/16 11/18/16 02/27/17 09:30 04:41 14:30 WBC Hgb 11.9 9.7 L Hct 37.9 30.8 L Plt Count 176 Potassium BUN Creatinine Magnesium AST ALT Albumin Urine Blood Large H Ur Leukocyte Esterase Large H Urine Bacteria Many H Ur Culture Indicated? YES A 02/27/17 02/27/17 02/28/17 14:30 14:30 03:10 WBC 10.7 18.8 H D Hgb 9.0 L 8.0 L Hct 27.8 L 24.2 L Plt Count 576 H 562 H Potassium BUN Creatinine Magnesium 0.9 L AST ALT Albumin Urine Blood Ur Leukocyte Esterase Urine Bacteria Ur Culture Indicated? 02/28/17 03:10 WBC Hgb Hct Plt Count Potassium 3.2 L BUN 17 Creatinine 0.68 Magnesium 2.1 AST 45 H ALT 55 Albumin 1.7 L Urine Blood Ur Leukocyte Esterase Urine Bacteria Ur Culture Indicated? 02/28/17 09:45 Troponin I 1.14 H* ITS Impressions Chest X-Ray 02/27/17 14:22 IMPRESSION: No acute cardiopulmonary process. Borderline cardiomegaly. Suspected large hiatal hernia. D/ / 02/27/2017 15:55:33 Cornell De La O MD / kalina Interpreting Provider: Cornell De La O MD Head CT 02/27/17 14:22 IMPRESSION: No acute intracranial hemorrhage Underlying atrophy with periventricular and scattered frontal parietal white matter disease, likely due to small-vessel ischemic change D/ / Christopher Dick MD / Christopher Dick MD Interpreting Provider: Christopher Dick MD Chest X-Ray 02/28/17 00:26 IMPRESSION: ET tube tip at the level the mona. This should be withdrawn approximately 3.5 cm for more optimal positioning in the mid trachea. Nasogastric tube coiled in a large hiatal hernia. D/ / Amaury Perez MD / Amaury Perez MD Interpreting Provider: Amaury Perez MD Chest X-Ray 02/28/17 00:43 IMPRESSION: 1. Right jugular central venous line placement with tip at the cavoatrial junction and no immediate complications. 2. Otherwise, stable chest x-ray. D/ / Pan Vaz MD / Pan Vaz MD Interpreting Provider: Pan Vaz MD Active Medications Famotidine (Pepcid) 20 mg IVP DAILY NOELLE PRN Reason: Protocol Stop: 08/30/17 09:01 Last Admin: 02/28/17 08:07 Dose: 20 mg Heparin Sodium (Porcine) (Heparin) 5,000 unit SQ Q12HCO NOELLE Stop: 08/29/17 18:01 Last Admin: 02/28/17 04:57 Dose: 5,000 unit Sodium Chloride (0.9 % Sodium Chloride) 1,000 mls @ 100 mls/hr IVC .Q10H NOELLE Stop: 08/29/17 16:31 Last Admin: 02/28/17 02:40 Dose: 100 mls/hr Fentanyl Citrate 1,000 mcg/ (Sodium Chloride) 100 mls @ 5 mls/hr IVC CONT NOELLE; 50 MCG/HR PRN Reason: Protocol Stop: 08/30/17 01:31 Last Admin: 02/28/17 01:57 Dose: 50 mcg/hr, 5 mls/hr Midazolam HCl 50 mg/ Sodium (Chloride) 100 mls @ 0.4 mls/hr IVC CONT NOELLE; 0.2 MG/HR PRN Reason: Protocol Stop: 08/30/17 01:31 Last Titration: 02/28/17 04:06 Dose: 1 mg/hr, 2 mls/hr Ceftriaxone Sodium 1,000 mg/ (Dextrose) 100 mls @ 200 mls/hr IVPB Q24H NOELLE Stop: 08/30/17 16:01 Morphine Sulfate (Morphine Sulfate) 1 mg IVP Q4HR PRN PRN Reason: Pain Stop: 08/29/17 20:01 Last Admin: 02/27/17 21:27 Dose: 1 mg - Imaging and Cardiology Chest Xray: report reviewed Echo: report reviewed - EKG Interpretation EKG results cardiology: personally reviewed (Mild ST depression noted in V leads compared to baseline), other (24 hour telemetry reviewed shows sinus rhythm with occasional PVCs, one episode of heart rate in the 150s-- reviewed and discussed with Dr. Botello, possible atrial flutter versus A. fib versus atrial tachycardia, no V. fib or VT noted) Consult Discharge Plan - Plan Referrals: Moreno Lara Jr, MD [Primary Care Provider] - <Yvette Botello - Last Filed: 02/28/17 13:00> Date of Encounter: 02/27/17 Assessment and Plan Discussion w patient/family: The assessment and plan as outlined above was discussed with the patient and/or family members who expressed understanding and agreement. All questions were answered. Thank you for involving us in the care of your patient. Please call with any questions. History of Present Illness History of present illness: Ms. Bustos is a 86 year old female All Systems Review: A 10-system review of systems was performed and is negative for pertinent findings except as documented above in the HPI. Physical Examination Vital Signs, Last 4 Hours Temp Pulse Resp BP Pulse Ox 02/28/17 12:00 89 20 118/56 98 02/28/17 11:17 97.5 F L 02/28/17 11:00 87 20 105/53 98 02/28/17 10:40 87 14 113/55 98 02/28/17 10:00 85 13 116/64 98 02/28/17 09:00 85 21 113/61 98 02/28/17 08:52 11 105/58 98 Results 02/28/17 03:10 02/28/17 03:10 Lab Results 02/28/17 09:45 Troponin I 1.14 H* - Attending Attestation I examined this patient and my medical decision-making was reviewed with the VARNISH FINISHER/PA/Advanced Practice Nurse/Resident Physician. I agree with the documented findings, disposition and treatment plan. Ms. Bustos was extubated this morning, awake and able to communicate. She denies recent symptoms of chest pain. She was recently evaluated in the outpatient Cardiology office for a preoperative evaluation prior to knee replacement. She was asymptomatic at that time. She underwent an echo as part of that evaluation demonstrating normal LV and RV function with valvular dysfunction that was not severe. She tells us that she hasn't been eating or drinking much over the past 2-3 weeks due to lack of appetite and nausea. This may have been secondary to pain medication use but is unclear. Nevertheless, she arrived very lethargic and a code blue was called when she was on the floor. I reviewed the Event Note documenting loss of consciousness and lack of pulse. I also reviewed a rhythm strip demonstrating a short episode of chaotic ventricular activity suggestive of VF. Her magnesium was profoundly low and she also had hypokalemia. There is no ECG upon admission to review QTc but rhythm during code may have been secondary to torsade. Her magnesium is being corrected as well as potassium. She is feeling much better. We will have her undergo a limited echo for an evaluation of EF. ECG this morning demonstrates nonspecific ST changes in V4-6, nothing acute or indicative of a recent TX. It is possible that her electrolyte disturbance from poor oral intake over the last few weeks contributed to her presentation.
[2017-02-28] MEDS: *HR* Morphine 2 MG/ML SYRINGE IVP PRN ×2 (11:08→19:09)
[2017-02-28 14:18] LABS: Hematocrit 23.6 % (35.3-44.9); Hemoglobin 7.8 g/dL (11.5-15.4)
[2017-02-28] MEDS ORDERED: Magnesium Sulfate 2 GM in D5% in Water 100 ML IVPB ONE ×2 (14:29→21:37)
[2017-02-28] MEDS: *HR* OxyCODONE/APAP 5/325 TABLET PO PRN ×2 (14:56→20:34)
[2017-02-28] MEDS ORDERED: 0.9 % Sodium Chloride 250 ML ONE (16:12)
[2017-02-28] MEDS: Sennosides 8.6 MG TABLET PO SCH ×2 (16:18→20:34)
[2017-02-28] MEDS: Pantoprazole 40 MG VIAL IVP SCH (16:18)
[2017-02-28] MEDS: Amiodarone Premix 360 MG/200 ML BAG IVC SCH (19:10)
[2017-02-28 20:54] LABS: Basophils % 0.1 %; Eosinophils % 0.2 %; Hematocrit 25.7 % (35.3-44.9); Hemoglobin 8.4 g/dL (11.5-15.4); Immature Granulocytes % 0.7 % (0-4); Lymphocytes # 1.2 K/mcL (0.6-4.6); Lymphocytes % 10.1 %; Mean Corpuscular HGB Conc 32.7 g/dL (31.6-35.5); Mean Corpuscular Volume 91.8 fL (83.0-100.0); Mean Platelet Volume 8.7 fL (9.4-12.4); Monocytes # 1.2 K/mcL (0.0-1.3); Monocytes % 10.3 %; Neutrophils # 9.5 K/mcL (1.6-8.9); Platelet Count 476 K/mcL (140-400); Red Cell Distribution Width 13.9 % (11.5-14.5); Segmented Neutrophils % 78.6 %
[2017-02-28] MEDS ORDERED: Magnesium Sulfate 1 GM in D5% in Water 100 ML IVPB ONE (23:45)
[2017-03-01] MEDS: *HR* Morphine 2 MG/ML SYRINGE IVP PRN ×3 (01:48→11:33)
[2017-03-01] MEDS: *HR* OxyCODONE/APAP 5/325 TABLET PO PRN (03:21)
[2017-03-01 03:42] LABS: Basophils % 0.2 %; Eosinophils # 0.1 K/mcL (0.0-0.6); Eosinophils % 0.6 %; Hematocrit 25.1 % (35.3-44.9); Hemoglobin 8.3 g/dL (11.5-15.4); Immature Granulocytes % 0.6 % (0-4); Immature Platelets 1.6 % (1.1-6.1); Lymphocytes # 0.9 K/mcL (0.6-4.6); Lymphocytes % 7.1 %; Mean Corpuscular HGB Conc 33.1 g/dL (31.6-35.5); Mean Corpuscular Hemoglobin 30.3 pg (28.0-33.3); Mean Corpuscular Volume 91.6 fL (83.0-100.0); Mean Platelet Volume 8.7 fL (9.4-12.4); Monocytes # 1.1 K/mcL (0.0-1.3); Monocytes % 8.9 %; Neutrophils # 10.4 K/mcL (1.6-8.9); Platelet Count 551 K/mcL (140-400); Red Blood Count 2.74 M/mcL (3.82-4.97); Red Cell Distribution Width 14.6 % (11.5-14.5); Segmented Neutrophils % 82.6 %
[2017-03-01 03:57] LABS: BUN/Creatinine Ratio 21 (6-26); Blood Urea Nitrogen 11 mg/dL (7-20); Calcium 9.1 mg/dL (8.6-10.8); Carbon Dioxide 26 mEq/L (19-29); Chloride 101 mEq/L (98-109); Glucose 108 mg/dL (70-99); Magnesium 2.3 mg/dL (1.6-2.6); Osmolality,Calculated 276 (280-300); Potassium 3.6 mEq/L (3.5-4.5); Sodium 133 mEq/L (136-145); eGFR For African Americans > 60 (> 60); eGFR For Non-African Americans > 60 (> 60)
[2017-03-01] MEDS: Amiodarone Premix 360 MG/200 ML BAG IVC SCH (06:07)
--- NOTE | 2017-03-01 07:56 | Cardiology Progress Note ---
Date of Encounter: 03/01/17 Time of Encounter: 08:00 Assessment and Plan (1) Ventricular fibrillation Current Visit: Yes Status: Acute Per Cardiology: Patient with apparent V. fib arrest requiring one to defibrillation. Rhythm strips reviewed and discussed with Dr. Botello, one strip noted to show what appears to be VF with one shock. No other strips available for review other than strips a few minutes later showing sinus rhythm with PACs. Occurred in setting of hypomagnesemia and hypokalemia-- poor PO intake past 2-3 weeks. No recurrence noted on telemetry. Recommend continue to monitor telemetry. Mg+ & K + replaced. Recent echo showed EF preserved at 55-60% February 26, 2017. Limited echo shows normal EF 65%, normal RV function, no segmental wall motion abnormality. Discussed and reviewed with Dr. Botello, will DC IV amio gtt, no need for PO. Will s/o, re-consult PRN, follow up as outpatient scheduled. (2) Hypomagnesemia Current Visit: Yes Status: Acute Per Cardiology: Magnesium noted to be 0.9 upon admission, replaced and now 2.3. On daily Mg. Patient reports decreased by mouth intake and appetite due to nausea the past few weeks. Had recent colon resection October 2016. Suspect contributing cause to her suspected V. fib arrest. Will monitor Mg, target > 2.0. (3) Hypokalemia Current Visit: Yes Status: Acute Per Cardiology: Improved, but currently 3.6. Will add daily K+. Target > 4.0. (4) Atrial arrhythmia Current Visit: Yes Status: Acute Per Cardiology: No known history of A. fib. One rhythm strip reviewed showed atrial tachycardia versus atrial flutter versus atrial fibrillation in the 150s. Reviewed with Dr. Botello. No recurrence noted. On amiodarone drip status post VF arrest. No clinical indication to anticoagulate at this juncture. Additionally, patient noted to have decreased H&H. (5) Anemia Current Visit: Yes Status: Acute Per Cardiology: H&H overall down since 10/2016. Denies active bleeding. Further management per primary service. Qualifiers: Anemia type: unspecified type Qualified Code(s): D64.9 - Anemia, unspecified (6) CAD (coronary artery disease) Current Visit: Yes Status: Chronic Per Cardiology: History of CAD with stenting 1 in 2000. Chest pain free. Echo completed an outpatient setting 2 days ago for preop showed EF preserved 55-60%, mild diastolic dysfunction, moderate severe dilated left atrium, mild to moderate aortic stenosis, mild aortic regurgitation, mild to moderate MS, mild to moderate MR, moderate TR, moderate pulmonary hypertension, apical inferior and apical septal [place] hypokinetic. Peak trop 1.14 and now downward trending-- obtained status post defibrillation. ECG does show some mild ST depression in V leads. Echo showed preserved EF and no segmental wall motion abnormalities. Suspect troponin elevation due to defibrillation. Qualifiers: Coronary Disease-Associated Artery/Lesion type: [place] artery [place] vs. transplanted heart: [place] heart Associated angina: without angina Qualified Code(s): I25.10 - Atherosclerotic heart disease of [place] coronary artery without angina pectoris (7) Urinary tract infection Current Visit: Yes Status: Acute Per Cardiology: On antibiotics. Managed by primary service. Qualifiers: Urinary tract infection type: acute cystitis Hematuria presence: without hematuria Qualified Code(s): N30.00 - Acute cystitis without hematuria (8) Arthritis of left knee Current Visit: Yes Status: Chronic Per Cardiology: Reports pending left knee surgery in [place] next week. Anticipate surgery may need postponed at this time. Discussion w patient/family: The assessment and plan as outlined above was discussed with the patient who expressed understanding and agreement. All questions were answered. Thank you for involving us in the care of your patient. Please call with any questions. Subjective Principal diagnosis: VFib Arrest, Hypomagnesemia Interval history: Patient denies any chest pain, short of breath, or palpitations overnight. Reports improvement of left knee pain this morning status post pain medication. Objective Vital Signs, Last 4 Hours Pulse Resp BP Pulse Ox 03/01/17 07:39 87 03/01/17 07:37 87 16 120/64 97 03/01/17 06:00 88 16 117/69 97 03/01/17 05:00 89 18 115/61 97 03/01/17 04:00 93 20 118/64 96 General: Conversant, No Apparent Distress HEENT: Atraumatic, Normocephaly Cardiac: Reg Rate and Rhythm, Normal S1 and S2, No Murmur Lungs: Normal Breath Sounds, No Wheeze, Rales, Rhonchi Neuro: Alert and responsive, No focal deficits noted Skin: No rashes noted on visualized skin Extremities: No Edema Results 03/01/17 03:20 03/01/17 03:20 Lab Results Laboratory Tests 02/28/17 02/28/17 03/01/17 09:45 20:45 01:52 Troponin I 1.14 H* 1.03 H* 1.00 H* 02/27/17 02/28/17 02/28/17 14:30 03:10 14:05 Potassium 3.7 3.2 L 4.0 Magnesium 0.9 L 2.1 02/28/17 02/28/17 03/01/17 14:05 20:45 03:20 Potassium 3.6 Magnesium 1.6 1.8 2.3 Impressions Chest X-Ray 02/27/17 14:22 IMPRESSION: No acute cardiopulmonary process. Borderline cardiomegaly. Suspected large hiatal hernia. D/ / 02/27/2017 15:55:33 Cornell De La O MD / kalina Interpreting Provider: Cornell De La O MD X-Ray 02/28/17 10:08 IMPRESSION: 1. No air-filled dilated loops of bowel. 2. Enteric tube tip is partially visualized within the intrathoracic stomach. D/ / Marcella Paitño MD / Marcella Patiño MD Interpreting Provider: Marcella Patiño MD Active Medications Ceftriaxone Sodium 1,000 mg/ (Dextrose) 100 mls @ 200 mls/hr IVPB Q24H NOELLE Stop: 08/30/17 16:01 Last Infusion: 02/28/17 17:33 Dose: Infused Amiodarone HCl/Dextrose (Amiodarone 360mg/200ml Drip Premix) 360 mg in 200 mls @ 16.667 mls/hr IVC CONT NOELLE PRN Reason: 0.5 MG/MIN Stop: 08/30/17 10:16 Last Admin: 03/01/17 06:07 Dose: 0.5 mg/min, 16.667 mls/hr Magnesium Oxide (Mag-Ox) 400 mg PO BID NOELLE PRN Reason: Protocol Stop: 08/31/17 09:01 Morphine Sulfate (Morphine Sulfate) 1 mg IVP Q4HR PRN PRN Reason: Pain Stop: 08/29/17 20:01 Last Admin: 03/01/17 05:55 Dose: 1 mg Oxycodone/Acetaminophen (Percocet 5/325) 1 each PO Q6HR PRN PRN Reason: Moderate Pain Stop: 08/30/17 10:12 Last Admin: 03/01/17 03:21 Dose: 1 each Pantoprazole Sodium (Protonix) 40 mg IVP DAILY NOELLE Stop: 08/30/17 15:16 Last Admin: 02/28/17 16:18 Dose: 40 mg Senna (Senna) 8.6 mg PO BID NOELLE Stop: 08/30/17 15:08 Last Admin: 02/28/17 20:34 Dose: 8.6 mg - Imaging and Cardiology Echo: report reviewed - EKG Interpretation EKG results cardiology: other (24-hour telemetry reviewed with average heart rate 87, sinus rhythm with rare PVCs, no A. fib noted and no V. tach or V. fib noted) Consult Discharge Plan - Plan Referrals: Moreno Lara Jr, MD [Primary Care Provider] -
[2017-03-01] MEDS ORDERED: Magnesium Oxide 400 MG TABLET PO SCH (09:00)
[2017-03-01] MEDS: Pantoprazole 40 MG VIAL IVP SCH (09:06)
[2017-03-01] MEDS: Sennosides 8.6 MG TABLET PO SCH ×2 (09:06→20:10)
[2017-03-01] MEDS ORDERED: *HR* OxyCODONE/APAP 10/325 TABLET PO PRN ×2 (09:11→09:26)
--- NOTE | 2017-03-01 09:11 | Event Note ---
<Reny Dee - Last Filed: 03/01/17 09:10> Date of Encounter: 03/01/17 Time of Encounter: 09:[address] Hastings <Ronny Rivera - Last Filed: 03/01/17 13:15> Date of Encounter: 03/01/17
[2017-03-01] MEDS ORDERED: Amiodarone Premix 360 MG/200 ML BAG IVC SCH (09:26)
--- NOTE | 2017-03-01 10:06 | ECHO - Doppler Report ---
Limited Echocardiogram Name: Jenni Bustos Date of Study: 02/28/2017 Date: 1930 Ht: 57.0 in Medical Record#: [id number] Age: 86 Wt: 140.0 lb Gender: Female BSA: 1.55 Order #: [id number] Location: [facility] Room #: IC11 Reading Physician: Yvette Botello DO Tool Machinist: Geeta Ordoñez Ordering Physician: Harley Quiñonez CNP Primary Physician: Moreno Lara MD Indications: VF arrest, Elevated troponin Impressions: LVEF 65%. Normal left ventricular size and systolic function. Normal right ventricular size and function. Left Ventricular Wall Motion: Rest Echo Findings All wall segments showed normal motion. Findings: Study Quality * Technically adequate exam. ECG Findings * Normal sinus rhythm. Left Ventricle * LVEF 65%. * Normal LV chamber size, wall thickness and function. Right Ventricle * Normal right ventricular structure and function. History Hypertension Hypercholesteremia Family History of CAD History of CAD/PTCA 02/26/2017 a Previous Echo was performed. Measurements: BP: 114/ 61 2D Normal Values IVSd: 1.10 cm 0.6 - 1.0 cm LVIDd: 4.10 cm 3.7 - 5.6 cm LVPWd: 1.10 cm 0.6 - 1.1 cm LVIDs: 2.70 cm 1.5 - 3.6 cm AO: 2.50 cm < 4.0 cm LA: 3.40 cm 2.0 - 4.0cm %FS: 34.10 cm >25 % LA volume: 87 Updated by Yvette Botello on 03/01/2017 10:02:39 AM electronically signed on 03/01/2017 10:03:14 AM with status of Final Wall Motion Lam: 1=Normal, 2=Hypokinesis, 3=Akinesis, 4=Dyskinesis, 5=Aneurysmal, 6=Hyperkinetic, X=Not Visualized (Blank)=Missing
--- NOTE | 2017-03-01 10:34 | Pulmonology Progress Note ---
<Reny Dee - Last Filed: 03/01/17 10:32> Date of Encounter: 03/01/17 Time of Encounter: 10:32 Assessment and Plan (1) Ventricular fibrillation Current Visit: Yes Status: Acute Patient had ventricular fibrillation arrest during code, received 1x defibrillation, had ROSC, received amio bolus and was placed on an amio drip, she has hx of CAD with stent placement in 2000, last echo was few days ago with normal LV and RV function with mild to moderate valvular dysfunction. This cardiac arrest was likely due to electrolytes abnormalities of hypomagnesemia and hypokalemia in a setting of malnutrition/poor po intakes for last few weeks , magnesium improved from 0.9 to 2.1 after IV mag supplementation and currently she is on IV potassium replacement, initial level was 3.2, EKG this AM showed nonspecific ST changes in V4 to V6, elevated troponin could be from CPR. Patient also has a urinary tract infection. This is sensitive to ceftriaxone. We will continue this. Plan: Transferred [place] [facility] [place] Continue to strictly monitor electrolytes. Ceftriaxone for UTI. EPCDs for DVT prophylaxis. (2) Anemia Current Visit: Yes Status: Acute Hgb is 8.3 this AM, yesterday was 8.0, likely dilutional from IV fluids she received, will recheck in AM, no sign of active bleeding, hemodynamically stable. Qualifiers: Anemia type: unspecified type Qualified Code(s): D64.9 - Anemia, unspecified (3) Elevated troponin Current Visit: Yes Status: Acute Trending down. Cardiology has signed off. Patient has been removed from amiodarone drip. (4) Hypokalemia Current Visit: Yes Status: Acute (5) Hypomagnesemia Current Visit: Yes Status: Acute Monitor closely correct as needed. Plan: Monitor Replacement daily. (6) Leukocytosis Current Visit: Yes Status: Acute Initially when she came in, it was 10.7, after CPR, increased to 18.8, likely reactive from CPR, currently she is on IV abx for UTI. Plan: We will continue to trend. Qualifiers: Qualified Code(s): D72.829 - Elevated white blood cell count, unspecified (7) Urinary tract infection Current Visit: Yes Status: Acute Sensitive to ceftriaxone. Culture grew Escherichia coli. Plan: Ceftriaxone Qualifiers: Urinary tract infection type: acute cystitis Hematuria presence: without hematuria Qualified Code(s): N30.00 - Acute cystitis without hematuria (8) Arthritis of left knee Current Visit: Yes Status: Chronic Pt was suppose to have total left knee replacement surgery next week for severe OA of left knee, will con't current pain med regimen, f/u with her orthopedic doctor as outpt. (9) DVT prophylaxis Current Visit: Yes Status: Acute EPCDs Subjective Principal diagnosis: VFib Arrest, Hypomagnesemia Interval history: Patient was extubated yesterday. She did well overnight. Her only complaint today is of left knee pain that is chronic and musculo- skeletal pain in her chest from CPR. She also reports constipation. She is on stool softeners. We will discontinue her amiodarone drip today her cardiology's recommendations. Her electrolytes are normal this morning. She is on potassium and magnesium replacement. We will move her from ICU to the floor today. Her diet has been advanced and she is controlling this well. Objective PUL Vital signs: Last Vital Signs Temp 97.8 F 03/01/17 03:20 Pulse 87 03/01/17 07:39 Resp 16 03/01/17 07:37 BP 120/64 03/01/17 07:37 Pulse Ox 97 03/01/17 07:37 General appearance: no acute distress, alert Eyes: nonicteric ENT: oropharynx moist Neck: supple Effort: normal Auscultation: bilateral: clear Cardiovascular: regular rate and rhythm Gastrointestinal: normoactive bowel sounds, soft, non-tender, non-distended Integumentary: normal Extremities: no cyanosis, no edema, pink and warm, pulses normal, other (Pain to palpation in her left knee. Left knee is not swollen erythematous or warm to touch. She has strong pedal pulses bilaterally.) Musculoskeletal: no deformities Gait: normal posture normal mental status, non-focal exam, pupils equal and round mood appropriate, affect normal Results - Laboratory Findings CBC and BMP: 03/01/17 03:20 03/01/17 03:20 ABG ABG pH 7.51 pH Units (7.32-7.45) H 02/28/17 04:45 ABG pCO2 30 mmHg (35-45) L 02/28/17 04:45 ABG pO2 111 mmHg (85-104) H 02/28/17 04:45 ABG O2 Saturation 99 % (95-98) H 02/28/17 04:45 Abnormal lab findings: Abnormal lab results WBC 12.6 K/mcL (4.3-11.1) H 03/01/17 03:20 RBC 2.74 M/mcL (3.82-4.97) L 03/01/17 03:20 Hgb 8.3 g/dL (11.5-15.4) L 03/01/17 03:20 Hct 25.1 % (35.3-44.9) L 03/01/17 03:20 RDW 14.6 % (11.5-14.5) H 03/01/17 03:20 Plt Count 551 K/mcL (140-400) H 03/01/17 03:20 MPV 8.7 fL (9.4-12.4) L 03/01/17 03:20 Neutrophils # 10.4 K/mcL (1.6-8.9) H 03/01/17 03:20 ESR 98 mm/hr (0-15) H 02/27/17 14:30 ABG pH 7.51 pH Units (7.32-7.45) H 02/28/17 04:45 ABG pCO2 30 mmHg (35-45) L 02/28/17 04:45 ABG pO2 111 mmHg (85-104) H 02/28/17 04:45 ABG O2 Saturation 99 % (95-98) H 02/28/17 04:45 Sodium 133 mEq/L (136-145) L 03/01/17 03:20 Creatinine 0.53 mg/dL (0.57-1.11) L 03/01/17 03:20 Glucose 108 mg/dL (70-99) H 03/01/17 03:20 POC Glucose 167 (58-89) H 02/28/17 00:15 Calculated Osmolality 276 (280-300) L 03/01/17 03:20 AST 45 Units/L (5-34) H 02/28/17 03:10 Alkaline Phosphatase 179 Units/L (38-126) H 02/28/17 03:10 Troponin I 1.00 ng/mL (0-0.03) H* 03/01/17 01:52 C-Reactive Protein 138 mg/L (Less than 5) H 02/27/17 14:30 Serum Total Protein 5.6 g/dL (6.0-8.3) L 02/28/17 03:10 Albumin 1.7 g/dL (3.5-5.0) L 02/28/17 03:10 Globulin 3.9 g/dL (2.4-3.5) H 02/28/17 03:10 Albumin/Globulin Ratio 0.4 (1.1-2.2) L 02/28/17 03:10 Urine Clarity Turbid (Clear) A 02/27/17 14:30 Urine Protein 30 mg/dL (Neg-Trace) H 02/27/17 14:30 Urine Ketones 40 mg/dL (Negative) H 02/27/17 14:30 Urine Blood Large (Negative) H 02/27/17 14:30 Ur Leukocyte Esterase Large (Negative) H 02/27/17 14:30 Urine Microscopic RBC 50-100 per hpf (0-3) H 02/27/17 14:30 Urine Microscopic WBC TNTC per hpf (0-3) H 02/27/17 14:30 Ur Squamous Epith Cells Many per lpf (None-Few) H 02/27/17 14:30 Amorphous Sediment Moderate (Few) H 02/27/17 14:30 Urine Bacteria Many per hpf (None-Few) H 02/27/17 14:30 Urine Yeast Few per hpf (None Seen) H 02/27/17 14:30 Ur Culture Indicated? YES (NO) A 02/27/17 14:30 - Diagnostic Findings Additional studies: Head CT 02/27/17 14:22 IMPRESSION: No acute intracranial hemorrhage Underlying atrophy with periventricular and scattered frontal parietal white matter disease, likely due to small-vessel ischemic change D/ / Christopher Dick MD / Christopher Dick MD Interpreting Provider: Christopher Dick MD Chest X-Ray 02/28/17 00:43 IMPRESSION: 1. Right jugular central venous line placement with tip at the cavoatrial junction and no immediate complications. 2. Otherwise, stable chest x-ray. D/ / Pan Vaz MD / Pan Vaz MD Interpreting Provider: Pan Vaz MD X-Ray 02/28/17 10:08 IMPRESSION: 1. No air-filled dilated loops of bowel. 2. Enteric tube tip is partially visualized within the intrathoracic stomach. D/ / Marcella Patiño MD / Marcella Patiño MD Interpreting Provider: Marcella Patiño MD - Clinical Findings Intake & Output: Intake & Output 02/28/17 03/01/17 03/01/17 23:59 07:59 15:59 Intake Total 706 / 706 406 / 406 Output Total 575 / 575 325 / 325 Balance 131 / 131 81 / 81 Weight 66.225 kg Consult Discharge Plan - Plan Referrals: Moreno Lara Jr, MD [Primary Care Provider] - <Ronny Rivera - Last Filed: 03/01/17 13:16> Date of Encounter: 03/01/17 Objective PUL Vital signs: Last Vital Signs Temp 97.8 F 03/01/17 03:20 Pulse 87 03/01/17 11:11 Resp 16 03/01/17 07:37 BP 120/64 03/01/17 07:37 Pulse Ox 97 03/01/17 07:37 Results - Laboratory Findings CBC and BMP: 03/01/17 12:42 03/01/17 03:20 ABG ABG pH 7.51 pH Units (7.32-7.45) H 02/28/17 04:45 ABG pCO2 30 mmHg (35-45) L 02/28/17 04:45 ABG pO2 111 mmHg (85-104) H 02/28/17 04:45 ABG O2 Saturation 99 % (95-98) H 02/28/17 04:45 Abnormal lab findings: Abnormal lab results WBC 12.6 K/mcL (4.3-11.1) H 03/01/17 03:20 RBC 2.74 M/mcL (3.82-4.97) L 03/01/17 03:20 Hgb 8.3 g/dL (11.5-15.4) L 03/01/17 03:20 Hct 25.1 % (35.3-44.9) L 03/01/17 03:20 RDW 14.6 % (11.5-14.5) H 03/01/17 03:20 Plt Count 551 K/mcL (140-400) H 03/01/17 03:20 MPV 8.7 fL (9.4-12.4) L 03/01/17 03:20 Neutrophils # 10.4 K/mcL (1.6-8.9) H 03/01/17 03:20 ESR 98 mm/hr (0-15) H 02/27/17 14:30 ABG pH 7.51 pH Units (7.32-7.45) H 02/28/17 04:45 ABG pCO2 30 mmHg (35-45) L 02/28/17 04:45 ABG pO2 111 mmHg (85-104) H 02/28/17 04:45 ABG O2 Saturation 99 % (95-98) H 02/28/17 04:45 Sodium 133 mEq/L (136-145) L 03/01/17 03:20 Creatinine 0.53 mg/dL (0.57-1.11) L 03/01/17 03:20 Glucose 108 mg/dL (70-99) H 03/01/17 03:20 POC Glucose 167 (58-89) H 02/28/17 00:15 Calculated Osmolality 276 (280-300) L 03/01/17 03:20 AST 45 Units/L (5-34) H 02/28/17 03:10 Alkaline Phosphatase 179 Units/L (38-126) H 02/28/17 03:10 Troponin I 1.00 ng/mL (0-0.03) H* 03/01/17 01:52 C-Reactive Protein 138 mg/L (Less than 5) H 02/27/17 14:30 Serum Total Protein 5.6 g/dL (6.0-8.3) L 02/28/17 03:10 Albumin 1.7 g/dL (3.5-5.0) L 02/28/17 03:10 Globulin 3.9 g/dL (2.4-3.5) H 02/28/17 03:10 Albumin/Globulin Ratio 0.4 (1.1-2.2) L 02/28/17 03:10 Urine Clarity Turbid (Clear) A 02/27/17 14:30 Urine Protein 30 mg/dL (Neg-Trace) H 02/27/17 14:30 Urine Ketones 40 mg/dL (Negative) H 02/27/17 14:30 Urine Blood Large (Negative) H 02/27/17 14:30 Ur Leukocyte Esterase Large (Negative) H 02/27/17 14:30 Urine Microscopic RBC 50-100 per hpf (0-3) H 02/27/17 14:30 Urine Microscopic WBC TNTC per hpf (0-3) H 02/27/17 14:30 Ur Squamous Epith Cells Many per lpf (None-Few) H 02/27/17 14:30 Amorphous Sediment Moderate (Few) H 02/27/17 14:30 Urine Bacteria Many per hpf (None-Few) H 02/27/17 14:30 Urine Yeast Few per hpf (None Seen) H 02/27/17 14:30 Ur Culture Indicated? YES (NO) A 02/27/17 14:30 - Clinical Findings Intake & Output: Intake & Output 02/28/17 03/01/17 03/01/17 23:59 07:59 15:59 Intake Total 706 / 706 406 / 406 50 / 50 Output Total 575 / 575 325 / 325 Balance 131 / 131 81 / 81 50 / 50 Weight 66.225 kg - Attending Attestation I examined this patient and my medical decision-making was reviewed with the SENIOR ACTUARIAL ANALYST/PA/Advanced Practice Nurse/Resident Physician. I agree with the documented findings, disposition and treatment plan as described except to the extent set forth below. Ms. graham continues to do well status post ACLS with ROSC requiring intubation she was liberated from the ventilator successfully yesterday and has no residual sequelae except for some mild chest pain around the rib cage likely as a result of trauma suffered during cardiopulmonary resuscitation It appears that cardiac arrest was precipitated by ventricular arrhythmia from hypomagnesemia and hypokalemia which has been repleted She continues to complain of constipation and will be put on a bowel regimen We are treating her left osteoarthritic knee pain with opioids and acetaminophen as needed She has a urinary tract infection which is confirmed Klebsiella that is sensitive to ceftriaxone which she is getting based upon renal dosing for age and GFR She has been seen by cardiology with plan to repeat limited echocardiogram over they feel this does not represent an acute coronary syndrome they are treating the arrhythmia with amiodarone which cardiology has stopped She has an acute on chronic anemia without overt signs or symptoms of active bleeding. She was given 1 unit of PRBCs overnight was noted not to increment appropriately but there is been no further decrease in level of anemia. Would hold further transfusion at this time recheck her CBC in the afternoon We will continue DVT prophylaxis as I feel that the risk of active bleeding is low and the risk of VTE quite high She is stable for transfer out of to a Telemetry Bed
[2017-03-01] MEDS: Metoprolol XL (24 HR) Succ 25 MG TAB.ER.24H PO SCH (11:22)
[2017-03-01 12:57] LABS: Hematocrit 27.6 % (35.3-44.9); Hemoglobin 9.1 g/dL (11.5-15.4)
[2017-03-01] MEDS: *HR* OxyCODONE/APAP 10/325 TABLET PO SCH ×3 (13:09→22:15)
[2017-03-01] MEDS: *HR* Heparin 5,000 UNIT/ML VIAL SQ SCH (17:56)
[2017-03-01] MEDS: Magnesium Oxide 400 MG TABLET PO SCH (20:10)
[2017-03-02] MEDS: *HR* OxyCODONE/APAP 10/325 TABLET PO SCH ×6 (03:03→21:22)
[2017-03-02] MEDS: *HR* Heparin 5,000 UNIT/ML VIAL SQ SCH (05:42)
[2017-03-02 06:04] LABS: Ionized Calcium 1.33 mmol/L (1.15-1.35)
[2017-03-02 06:07] LABS: Basophils % 0.1 %; Eosinophils # 0.1 K/mcL (0.0-0.6); Eosinophils % 0.3 %; Hematocrit 26.7 % (35.3-44.9); Hemoglobin 8.7 g/dL (11.5-15.4); Immature Granulocytes % 0.9 % (0-4); Lymphocytes % 5.3 %; Mean Corpuscular HGB Conc 32.6 g/dL (31.6-35.5); Mean Corpuscular Hemoglobin 30.2 pg (28.0-33.3); Mean Corpuscular Volume 92.7 fL (83.0-100.0); Mean Platelet Volume 8.7 fL (9.4-12.4); Monocytes # 1.5 K/mcL (0.0-1.3); Monocytes % 7.4 %; Platelet Count 480 K/mcL (140-400); Red Blood Count 2.88 M/mcL (3.82-4.97); Red Cell Distribution Width 14.4 % (11.5-14.5)
[2017-03-02 06:13] LABS: BUN/Creatinine Ratio 15 (6-26); Blood Urea Nitrogen 8 mg/dL (7-20); Calcium 9.2 mg/dL (8.6-10.8); Carbon Dioxide 27 mEq/L (19-29); Chloride 98 mEq/L (98-109); Glucose 88 mg/dL (70-99); Magnesium 1.2 mg/dL (1.6-2.6); Osmolality,Calculated 270 (280-300); Phosphorous 2.3 mg/dL (2.3-4.7); Potassium 4.1 mEq/L (3.5-4.5); Sodium 131 mEq/L (136-145); eGFR For African Americans > 60 (> 60); eGFR For Non-African Americans > 60 (> 60)
[2017-03-02 06:31] LABS: Neutrophils # 16.9 K/mcL (1.6-8.9)
[2017-03-02] MEDS: *HR* Morphine 2 MG/ML SYRINGE IVP PRN ×2 (08:20→17:17)
[2017-03-02] MEDS: Metoprolol XL (24 HR) Succ 25 MG TAB.ER.24H PO SCH (08:21)
[2017-03-02] MEDS: Sennosides 8.6 MG TABLET PO SCH (08:21)
[2017-03-02] MEDS: Magnesium Oxide 400 MG TABLET PO SCH ×2 (08:21→21:18)
[2017-03-02] MEDS ORDERED: Pantoprazole 40 MG VIAL IVP SCH (09:00)
--- NOTE | 2017-03-02 10:01 | Electrocardiograph Report ---
[place] [address] Test Date: 2017-02-28 Pat Name: Jenni Bustos Department: 109 Room: 2NE33 Gender: F Test Driver: : [id number] Requested By: Ronny Rivera Order Number: [id number] Reading MD: Leno Dickson MD Measurements Intervals [place] Rate: 83 P: 46 MA: 160 QRS: -29 QRSD: 131 T: 43 QT: 375 QTc: 415 Interpretive Statements SINUS RHYTHM INTRAVENTRICULAR CONDUCTION DELAY LEFT VENTRICULAR HYPERTROPHY AND ST-T CHANGE Electronically Signed On 03-02-2017 10:00:03 EDT by Leno Dickson MD
--- NOTE | 2017-03-02 12:11 | Internal Med Progress Note ---
Date of Encounter: 03/04/17 Time of Encounter: 12:11 - Assessment and plan (1) GI bleed Current Visit: Yes Status: Acute Assessment and plan: Today's my first encounter with this patient. We summarize brief hospital stay so far. Brief history: 86/female PCP: Dr. Lara Inpatient consults: Pulmonology/critical care:S/P V. fib arrest. CODE BLUE, successful intubation/ ventilation Cardiology: Elevated troponin/V. fib arrest. Gastroenterology: GI bleed. Patient was referred from her orthopedic surgeon ( [place]) who has scheduled her for knee replacement. In preop evaluation it was noted that patient is a possibility of a urinary tract infection. This was the reason she was referred to the hospital for further evaluation. Patient was hospitalized. Patient had a V. fib arrest likely secondary to hypomagnesemia. CODE BLUE was initiated. Patient was successfully intubated/when directed. Cardiology was consulted for V. fib arrest. Cardiology recommended low-dose beta cintia. Patient was successfully extubated and transferred to [address] [place] [address] for further evaluation. I examined this patient this morning. Patient had a large bowel movement which was dark, tarry in nature. Stool occult blood was positive. Etiology for GI bleed: Multifactorial. 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 Plan: -Discontinue Heparin ( DVT prophylaxis). - SCD - Will monitor Hb. - Transfuse 1 unit PRBC as she has history of CAD with recent positive troponin. - IV PPI 40 mg [id number] - NPO from midnight. - Gastroentrology consulted and will get EGD tomorrow. - plan explained to patient and her daughter. -Patient and her daughter verbalized understanding and they do not have any questions at this point. Qualifiers: GI bleed type/associated pathology: melena Qualified Code(s): K92.1 - Melena (2) Urinary tract infection Current Visit: Yes Status: Acute Assessment and plan: Urine culture is positive for Escherichia coli. Patient is on presently ceftriaxone: Date 2 Will continue present antibiotics for now Qualifiers: Urinary tract infection type: acute cystitis Hematuria presence: without hematuria Qualified Code(s): N30.00 - Acute cystitis without hematuria (3) Hypomagnesemia Current Visit: Yes Status: Acute Assessment and plan: Persistent hypomagnesemia: I replaced magnesium 4 g. Will recheck magnesium tomorrow. (4) CAD (coronary artery disease) Current Visit: Yes Status: Chronic Assessment and plan: Patient is known to have coronary artery disease. This is the reason we are transfusing her in the event of gastrointestinal bleeding. Qualifiers: Coronary Disease-Associated Artery/Lesion type: koi artery [place] vs. transplanted heart: koi heart Associated angina: without angina Qualified Code(s): I25.10 - Atherosclerotic heart disease of koi coronary artery without angina pectoris (5) Elevated troponin Current Visit: Yes Status: Acute Assessment and plan: Likely demand ischemia. Likely multifactorial Since now the patient is a GI bleed, we will take this and transfuse her 1 unit. (6) DVT prophylaxis Current Visit: Yes Status: Acute Assessment and plan: SCD - Subjective Interval history: Patient seen and examined. Chart reviewed. Patient is comfortably lying in bed. She does not have any complaint at this point. She denies abdominal pain, chest pain, nausea, vomiting, diarrhea or dizziness. - Constitutional Vitals: Temp Pulse Resp BP Pulse Ox 98.8 F 103 17 131/76 97 03/02/17 05:44 03/02/17 05:44 03/02/17 05:44 03/02/17 05:44 03/02/17 05:44 General appearance: Present: A&O X 3, pleasant, no acute distress, answers questions appropriately - Head Head exam: Present: atraumatic, normocephalic - Eye Eye exam: Present: PERRL, conjuntiva pink, sclera anicteric Pupils: Present: PERRL - Neck Neck exam general surgery: Present: supple, trachea midline. Absent: lymphadenopathy - Respiratory Respiratory exam: Present: CTAB. Absent: accessory muscle use, rales, rhonchi, wheezes - Cardiovascular Cardiovascular exam: Present: RRR, +S1, +S2. Absent: diastolic murmur, gallop, rubs, systolic murmur - GI/Abdominal GI/Abdominal exam: Present: normal bowel sounds, soft, no peritoneal signs. Absent: distended, tenderness - Extremities Exam Extremities exam: Present: warm, radial pulses palpable and symetrical. Absent : calf tenderness, cyanotic, pedal edema - Neurological Exam Neurological exam: Present: CN II-XII intact, oriented X3, no focal deficits. Absent: pronater drift, facial droop, speech deficit - Skin Skin exam: Present: dry, intact Internal Medicine: Result - Labs CBC & Chem 7: 03/04/17 04:55 03/04/17 04:55 Labs: Short CBC 03/01/17 03/02/17 Range/Units 12:42 05:55 WBC 19.7 H D (4.3-11.1) K/mcL Hgb 9.1 L 8.7 L (11.5-15.4) g/dL Hct 27.6 L 26.7 L (35.3-44.9) % Plt Count 480 H (140-400) K/mcL Neutrophils # 16.9 H (1.6-8.9) K/mcL BMP 03/02/17 05:55 Sodium 131 L Potassium 4.1 Chloride 98 Carbon Dioxide 27 BUN 8 Creatinine 0.53 L Glucose 88 Calcium 9.2 - ABG Interpretation ABG results: ABG ABG pH 7.51 pH Units (7.32-7.45) H 02/28/17 04:45 ABG pCO2 30 mmHg (35-45) L 02/28/17 04:45 ABG pO2 111 mmHg (85-104) H 02/28/17 04:45 ABG O2 Saturation 99 % (95-98) H 02/28/17 04:45 Consult Discharge Plan - Plan Referrals: Moreno Lara Jr, MD [Primary Care Provider] -
[2017-03-02] MEDS ORDERED: 0.9 % Sodium Chloride 250 ML ONE (17:14)
[2017-03-02] MEDS: Pantoprazole 40 MG VIAL IVP SCH (17:17)
[2017-03-03] MEDS: *HR* OxyCODONE/APAP 10/325 TABLET PO SCH ×3 (02:23→09:37)
[2017-03-03 04:02] LABS: Basophils % 0.1 %; Eosinophils # 0.1 K/mcL (0.0-0.6); Eosinophils % 0.3 %; Hematocrit 28.7 % (35.3-44.9); Hemoglobin 9.4 g/dL (11.5-15.4); Immature Granulocytes % 1.6 % (0-4); Lymphocytes % 4.8 %; Mean Corpuscular HGB Conc 32.8 g/dL (31.6-35.5); Mean Corpuscular Hemoglobin 30.2 pg (28.0-33.3); Mean Corpuscular Volume 92.3 fL (83.0-100.0); Mean Platelet Volume 8.8 fL (9.4-12.4); Monocytes # 1.6 K/mcL (0.0-1.3); Neutrophils # 16.9 K/mcL (1.6-8.9); Platelet Count 442 K/mcL (140-400); Red Blood Count 3.11 M/mcL (3.82-4.97); Red Cell Distribution Width 14.5 % (11.5-14.5); Segmented Neutrophils % 85.2 %
[2017-03-03 04:15] LABS: Alanine Aminotransferase 32 Units/L (0-55); Albumin/Globulin Ratio 0.4 (1.1-2.2); Alkaline Phosphatase 136 Units/L (38-126); Aspartate Amino Transferase 21 Units/L (5-34); BUN/Creatinine Ratio 15 (6-26); Bilirubin,Total 0.5 mg/dL (0.2-1.2); Blood Urea Nitrogen 8 mg/dL (7-20); Calcium 8.9 mg/dL (8.6-10.8); Carbon Dioxide 28 mEq/L (19-29); Chloride 98 mEq/L (98-109); Globulin 3.8 g/dL (2.4-3.5); Glucose 93 mg/dL (70-99); Osmolality,Calculated 272 (280-300); Potassium 4.1 mEq/L (3.5-4.5); Sodium 132 mEq/L (136-145); Total Protein 5.5 g/dL (6.0-8.3); eGFR For African Americans > 60 (> 60); eGFR For Non-African Americans > 60 (> 60)
[2017-03-03 04:16] LABS: Albumin 1.7 g/dL (3.5-5.0)
[2017-03-03] MEDS: *HR* Morphine 2 MG/ML SYRINGE IVP PRN ×2 (06:10→17:11)
[2017-03-03] MEDS: Pantoprazole 40 MG VIAL IVP SCH ×2 (06:32→17:08)
[2017-03-03] MEDS: Magnesium Oxide 400 MG TABLET PO SCH ×2 (09:36→19:57)
[2017-03-03] MEDS: Metoprolol XL (24 HR) Succ 25 MG TAB.ER.24H PO SCH (09:36)
[2017-03-03] MEDS: *HR* Morphine 2 MG/ML SYRINGE IVP SCH ×3 (14:43→19:59)
--- NOTE | 2017-03-03 15:07 | Gastroenterology Consult Note ---
<Jasvir Ansari - Last Filed: 03/03/17 15:05> Date of Encounter: 03/03/17 Time of Encounter: 11:00 - Assessment and plan (1) GI bleed Current Visit: Yes Status: Acute Assessment and plan: Pt with episode of melena. Continue BID PPI. Plan for EGD tomorrow to r/o esophagitis, gastritis, duodenitis, PUD, MW tear, or AVM. Keep NPO at midnight. Qualifiers: GI bleed type/associated pathology: melena Qualified Code(s): K92.1 - Melena (2) Anemia Current Visit: Yes Status: Acute Assessment and plan: Likely secondary to GI bleed. Continue to monitor CBC and transfuse PRBC as needed. Pt received PRBC on 02/28 and 03/02. Plan for EGD tomorrow. Qualifiers: Anemia type: unspecified type Qualified Code(s): D64.9 - Anemia, unspecified (3) Urinary tract infection Current Visit: Yes Status: Acute Assessment and plan: Management per primary team. Qualifiers: Urinary tract infection type: acute cystitis Hematuria presence: without hematuria Qualified Code(s): N30.00 - Acute cystitis without hematuria - Time Spent With Patient Total time spent is greater than 50% in coordination of care (as documented) at patient's floor/unit and/or counseling patient: GI History of Present Illness - Data of Consult Patient: new to practice Consult date: 03/03/17 Requesting Physician: Toney Wang MD - Consult Narrative Reason for consult: Melena History of present illness: Ms. Bustos is a 86 year old female with PMHx of arthritis, CAD, HLD, HTN who presented to the ED with weakness and vomiting. She reported feeling nauseous and unable to keep any food down. She denies any bloody vomitus or abdominal pain. On 02/27 the patient went into Vfib and was found in cardiac/repiratory arrest, CPR was started, she was defibrillated and was transferred to the ICU. We were consulted due to an episode of melena. Pt had a loarge bowel movement that was dark and tarry and FOBT positive. Heparin was DC'd and BID PPI started. Procedures: Colonoscopy 10/14/16 Dr. Squires: Diverticulosis. NSAIDs: None Anticoagulation: None Past Med Surg Social Fam HX - Past Medical History Medical history: arthritis, coronary artery disease, hyperlipidemia, hypertension Psychiatric history: no psych history - Social History Smoking Status: Never smoker Smokeless Tobacco Status: No Alcohol use: none Drug use: none - Family History Mother Living Status: Cause of : Heart disease Hx Family Cardiac Disorders: Yes Hx Family Respiratory Disorders: No Hx Family Cancer: No Hx Family GI Disorders: No Hx Family Genitourinary Disorders: No Hx Family Endocrine Disorder: Yes (Diabetic) Hx Family Musculoskeletal Disorders: No Hx Family Neuromuscular Disorders: No Hx Family Neurologic Disorders: No Hx Family HEENT Disorders: No Hx Family Autoimmune Disorders: No Hx Family Reproductive Disorders: No Hx Family Psychosocial Disorders: No Hx Family Medical Disorders: No - Gastrointestinal Gastrointestinal: Present: as per HPI - Constitutional Constitutional: as per HPI - EENT Eyes: as per HPI Ears: Present: as per HPI Nose, mouth and throat: Present: as per HPI - Cardiovascular Cardiovascular ROS: Present: as per HPI - Respiratory Respiratory IM: Present: as per HPI - Genitourinary Genitourinary: Absent: change in color, Urinary frequency - Neurological ROS Neurological GI: Present: as per HPI - Hematologic/Lymphatic Hematologic/Lymphatic pediatric: Present: as per HPI - Musculoskeletal Musculoskeletal ROS GI: Present: as per HPI - Integumentary Integumentary GI: Present: as per HPI - Psychiatric ROS Psychiatric GI: Present: as per HPI - Endocrine Endocrine IM: Present: as per HPI - Constitutional Vitals: Temp Pulse Resp BP Pulse Ox 98.4 F 97 20 121/61 97 03/03/17 06:54 03/03/17 06:54 03/03/17 06:54 03/03/17 06:54 03/03/17 06:54 General appearance: Present: cooperative, A&O X 3, no acute distress, answers questions appropriately - Head Head exam: Present: atraumatic, normocephalic - Eye Eye exam: Present: normal appearance, sclera anicteric - ENT ENT exam: Present: mucous membranes moist - Neck Neck exam general surgery: Present: normal inspection, trachea midline - Respiratory Respiratory exam: Present: CTAB. Absent: rales, rhonchi, wheezes - Cardiovascular Cardiovascular exam: Present: RRR, +S1, +S2 - GI/Abdominal GI/Abdominal exam: Present: soft, no peritoneal signs. Absent: distended, firm , guarding, tenderness - Rectal Rectal exam: Present: deferred - Extremities Exam Extremities exam: Present: warm - Neurological Exam Neurological exam: Present: no focal deficits - Psychiatric Psychiatric exam: Present: normal affect, normal mood - Skin Skin exam: Present: dry, intact, normal color, warm Results - Labs CBC & Chem 7: 03/03/17 03:43 03/03/17 03:43 Labs: Last Result ESR 98 mm/hr (0-15) H 02/27/17 14:30 Calcium 8.9 mg/dL (8.6-10.8) 03/03/17 03:43 Troponin I 1.00 ng/mL (0-0.03) H* 03/01/17 01:52 C-Reactive Protein 138 mg/L (Less than 5) H 02/27/17 14:30 Stool Occult Blood Positive (Negative) A 03/02/17 08:45 Entire Visit Hgb 9.4 g/dL (11.5-15.4) L 03/03/17 03:43 Hct 28.7 % (35.3-44.9) L 03/03/17 03:43 Total Bilirubin 0.5 mg/dL (0.2-1.2) 03/03/17 03:43 AST 21 Units/L (5-34) 03/03/17 03:43 ALT 32 Units/L (0-55) 03/03/17 03:43 - ABG ABG results: ABG ABG pH 7.51 pH Units (7.32-7.45) H 02/28/17 04:45 ABG pCO2 30 mmHg (35-45) L 02/28/17 04:45 ABG pO2 111 mmHg (85-104) H 02/28/17 04:45 ABG O2 Saturation 99 % (95-98) H 02/28/17 04:45 Consult Discharge Plan - Plan Referrals: Moreno Lara Jr, MD [Primary Care Provider] - <Mounika Riley - Last Filed: 03/03/17 18:40> Date of Encounter: 03/03/17 Time of Encounter: 18:00 - Time Spent With Patient Total time spent is greater than 50% in coordination of care (as documented) at patient's floor/unit and/or counseling patient: GI History of Present Illness - Data of Consult Requesting Physician: Toney Wang MD - Consult Narrative History of present illness: Ms. Bustos is a 86 year old female - Constitutional Vitals: Temp Pulse Resp BP Pulse Ox 98.2 F 88 20 115/62 95 03/03/17 15:20 03/03/17 15:20 03/03/17 15:20 03/03/17 17:34 03/03/17 15:20 Results - Labs CBC & Chem 7: 03/03/17 03:43 03/03/17 03:43 Labs: Last Result ESR 98 mm/hr (0-15) H 02/27/17 14:30 Calcium 8.9 mg/dL (8.6-10.8) 03/03/17 03:43 Troponin I 1.00 ng/mL (0-0.03) H* 03/01/17 01:52 C-Reactive Protein 138 mg/L (Less than 5) H 02/27/17 14:30 Stool Occult Blood Positive (Negative) A 03/02/17 08:45 Entire Visit Hgb 9.4 g/dL (11.5-15.4) L 03/03/17 03:43 Hct 28.7 % (35.3-44.9) L 03/03/17 03:43 Total Bilirubin 0.5 mg/dL (0.2-1.2) 03/03/17 03:43 AST 21 Units/L (5-34) 03/03/17 03:43 ALT 32 Units/L (0-55) 03/03/17 03:43 - ABG ABG results: ABG ABG pH 7.51 pH Units (7.32-7.45) H 02/28/17 04:45 ABG pCO2 30 mmHg (35-45) L 02/28/17 04:45 ABG pO2 111 mmHg (85-104) H 02/28/17 04:45 ABG O2 Saturation 99 % (95-98) H 02/28/17 04:45
--- NOTE | 2017-03-03 17:53 | Internal Med Progress Note ---
Date of Encounter: 03/04/17 Time of Encounter: 17:47 - Assessment and plan (1) GI bleed Current Visit: Yes Status: Acute Assessment and plan: Today's my first encounter with this patient. We summarize brief hospital stay so far. Brief history: 86/female PCP: Dr. Lara Inpatient consults: Pulmonology/critical care:S/P V. fib arrest. CODE BLUE, successful intubation/ ventilation Cardiology: Elevated troponin/V. fib arrest. Gastroenterology: GI bleed. Patient was referred from her orthopedic surgeon ( Mango Neely) who has scheduled her for knee replacement. In preop evaluation it was noted that patient is a possibility of a urinary tract infection. This was the reason she was referred to the hospital for further evaluation. Patient was hospitalized. Patient had a V. fib arrest likely secondary to hypomagnesemia. CODE BLUE was initiated. Patient was successfully intubated/when directed. Cardiology was consulted for V. fib arrest. Cardiology recommended low-dose beta cintia. Patient was successfully extubated and transferred to [address] [place] [address] for further evaluation. I examined this patient this morning. Patient had a large bowel movement which was dark, tarry in nature. Stool occult blood was positive. Etiology for GI bleed: Multifactorial. 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 Plan: -Discontinue Heparin ( DVT prophylaxis). - SCD - Will monitor Hb. - Transfuse 1 unit PRBC as she has history of CAD with recent positive troponin. - IV PPI 40 mg [id number] - NPO from midnight. - Gastroentrology consulted and will get EGD tomorrow. - plan explained to patient and her daughter. -Patient and her daughter verbalized understanding and they do not have any questions at this point. 03/03/2017 Transfused 1 unit PRBC yesterday and Holding Hb at 9.4 ( yesterday 8.7) Still has black, Tarry stools. on IV PPI 40 mg BID. Plan continue PPI EGD tomorrow NPO from midnight. sheis also complaining of persistent pain in left knee. will get xray and ortho opinion. Qualifiers: GI bleed type/associated pathology: melena Qualified Code(s): K92.1 - Melena (2) Urinary tract infection Current Visit: Yes Status: Acute Assessment and plan: Urine culture is positive for Escherichia coli. Patient is on presently ceftriaxone: Day 2 Will continue present antibiotics for now 03/03/2017 Ceftriaxone : Day 3 will continue Abx as she has occasional dysuria. Qualifiers: Urinary tract infection type: acute cystitis Hematuria presence: without hematuria Qualified Code(s): N30.00 - Acute cystitis without hematuria (3) Hypomagnesemia Current Visit: Yes Status: Acute Assessment and plan: Persistent hypomagnesemia: I replaced magnesium 4 g. Will recheck magnesium tomorrow. 03/03/2017 awaiting for labs (4) CAD (coronary artery disease) Current Visit: Yes Status: Chronic Assessment and plan: Patient is known to have coronary artery disease. This is the reason we are transfusing her in the event of gastrointestinal bleeding. 03/03/2017 has OK 16 years back and she has stent placed in 16 years back. Qualifiers: Coronary Disease-Associated Artery/Lesion type: [place] artery [place] vs. transplanted heart: [place] heart Associated angina: without angina Qualified Code(s): I25.10 - Atherosclerotic heart disease of [place] coronary artery without angina pectoris (5) Elevated troponin Current Visit: Yes Status: Acute Assessment and plan: Likely demand ischemia. Likely multifactorial Since now the patient is a GI bleed, we will take this and transfuse her 1 unit. (6) DVT prophylaxis Current Visit: Yes Status: Acute Assessment and plan: SCD - Subjective Interval history: Patient seen and examined. Chart reviewed. Patient is comfortably lying in bed. She does not have any complaint at this point. She denies abdominal pain, chest pain, nausea, vomiting, diarrhea or dizziness. 03/03/2017 seen and examined. daughter at bedside. has persistent left knee pain. occasional pain in chest area ( generalized) eating well and denies nausea and vomiting. - Constitutional Vitals: Temp Pulse Resp BP Pulse Ox 98.2 F 88 20 115/62 95 03/03/17 15:20 03/03/17 15:20 03/03/17 15:20 03/03/17 17:34 03/03/17 15:20 General appearance: Present: A&O X 3, pleasant, no acute distress, answers questions appropriately - Head Head exam: Present: atraumatic, normocephalic - Eye Eye exam: Present: PERRL, conjuntiva pink, sclera anicteric Pupils: Present: PERRL - Neck Neck exam general surgery: Present: supple, trachea midline. Absent: lymphadenopathy - Respiratory Respiratory exam: Present: CTAB. Absent: accessory muscle use, rales, rhonchi, wheezes - Cardiovascular Cardiovascular exam: Present: RRR, +S1, +S2. Absent: diastolic murmur, gallop, rubs, systolic murmur - GI/Abdominal GI/Abdominal exam: Present: normal bowel sounds, soft, no peritoneal signs. Absent: distended, tenderness - Extremities Exam Extremities exam: Present: warm, radial pulses palpable and symetrical. Absent : calf tenderness, cyanotic, pedal edema - Neurological Exam Neurological exam: Present: CN II-XII intact, oriented X3, no focal deficits. Absent: pronater drift, facial droop, speech deficit - Skin Skin exam: Present: dry, intact Internal Medicine: Result - Labs CBC & Chem 7: 03/04/17 04:55 03/04/17 04:55 Labs: Short CBC 03/03/17 Range/Units 03:43 WBC 19.9 H (4.3-11.1) K/mcL Hgb 9.4 L (11.5-15.4) g/dL Hct 28.7 L (35.3-44.9) % Plt Count 442 H (140-400) K/mcL Neutrophils # 16.9 H (1.6-8.9) K/mcL BMP 03/03/17 03:43 Sodium 132 L Potassium 4.1 Chloride 98 Carbon Dioxide 28 BUN 8 Creatinine 0.53 L Glucose 93 Calcium 8.9 Liver Function 03/03/17 Range/Units 03:43 Total Bilirubin 0.5 (0.2-1.2) mg/dL AST 21 (5-34) Units/L ALT 32 (0-55) Units/L Alkaline Phosphatase 136 H (38-126) Units/L Albumin 1.7 L (3.5-5.0) g/dL - ABG Interpretation ABG results: ABG ABG pH 7.51 pH Units (7.32-7.45) H 02/28/17 04:45 ABG pCO2 30 mmHg (35-45) L 02/28/17 04:45 ABG pO2 111 mmHg (85-104) H 02/28/17 04:45 ABG O2 Saturation 99 % (95-98) H 02/28/17 04:45 - VTE Documentation of Mechanical Device: Intermittent pneumatic compression device Consult Discharge Plan - Plan Referrals: Moreno Lara Jr, MD [Primary Care Provider] -
--- NOTE | 2017-03-03 19:48 | Event Note ---
Date of Encounter: 03/03/17 Time of Encounter: 19:46 Orthopedics asked to see Ms. Bustos for possible increase in Left knee pain. She was scheduled for a Left knee TKR, and was admitted during her pre- operative assessment for other medical complications. No s/s of infection or instability. At this time, she is not a surgical candidate for TKR. I reviewed options with her, would would include conservative management - and possible injection for pain control. I am out of the office tomorrow, and have asked her to let the staff know if she wishes to pursue any further treatments at this time.
[2017-03-03] MEDS ORDERED: Magnesium Sulfate 4 GM in D5% in Water 100 ML IVPB ONE (21:42)
[2017-03-04] MEDS: *HR* Morphine 2 MG/ML SYRINGE IVP PRN ×3 (02:23→23:02)
[2017-03-04] MEDS: *HR* Morphine 2 MG/ML SYRINGE IVP SCH ×6 (04:41→20:44)
[2017-03-04 05:11] LABS: Basophils % 0.2 %; Eosinophils # 0.1 K/mcL (0.0-0.6); Eosinophils % 0.6 %; Hemoglobin 9.2 g/dL (11.5-15.4); Immature Granulocytes % 0.8 % (0-4); Lymphocytes # 1.4 K/mcL (0.6-4.6); Lymphocytes % 8.3 %; Mean Corpuscular HGB Conc 32.9 g/dL (31.6-35.5); Mean Corpuscular Hemoglobin 30.5 pg (28.0-33.3); Mean Corpuscular Volume 92.7 fL (83.0-100.0); Mean Platelet Volume 8.8 fL (9.4-12.4); Monocytes # 1.6 K/mcL (0.0-1.3); Monocytes % 9.4 %; Neutrophils # 13.6 K/mcL (1.6-8.9); Platelet Count 414 K/mcL (140-400); Red Blood Count 3.02 M/mcL (3.82-4.97); Segmented Neutrophils % 80.7 %
[2017-03-04 05:26] LABS: Alanine Aminotransferase 29 Units/L (0-55); Albumin 1.6 g/dL (3.5-5.0); Albumin/Globulin Ratio 0.4 (1.1-2.2); Alkaline Phosphatase 137 Units/L (38-126); Aspartate Amino Transferase 23 Units/L (5-34); BUN/Creatinine Ratio 14 (6-26); Bilirubin,Total 0.4 mg/dL (0.2-1.2); Blood Urea Nitrogen 7 mg/dL (7-20); Calcium 9.1 mg/dL (8.6-10.8); Carbon Dioxide 29 mEq/L (19-29); Chloride 98 mEq/L (98-109); Globulin 3.9 g/dL (2.4-3.5); Glucose 87 mg/dL (70-99); Magnesium 1.7 mg/dL (1.6-2.6); Osmolality,Calculated 273 (280-300); Potassium 3.9 mEq/L (3.5-4.5); Sodium 133 mEq/L (136-145); Total Protein 5.5 g/dL (6.0-8.3); eGFR For African Americans > 60 (> 60); eGFR For Non-African Americans > 60 (> 60)
[2017-03-04] MEDS: Pantoprazole 40 MG VIAL IVP SCH ×2 (08:09→18:25)
--- NOTE | 2017-03-04 10:30 | Event Note ---
Date of Encounter: 03/04/17 Time of Encounter: 10:00 - Cardiology Event Note Laboratory Tests 11/11/16 02/27/17 02/28/17 09:30 14:30 09:45 Hgb 11.9 9.0 L Hct 37.9 27.8 L Troponin I 1.14 H* 02/28/17 03/01/17 03/04/17 20:45 01:52 04:55 Hgb 9.2 L Hct 28.0 L Troponin I 1.03 H* 1.00 H* Patient discussed and reviewed with Dr. Quiroz and he agrees no ischemic eval warranted at this time in terms of LHC. Vfib arrest occurred in setting of metabolic derangement. Continue to replace Mg and K. EF preserved on echo. Troponins peaked at 1.14 s/p defib and then downward trend. Patient with no CP prior to event. I discussed LHC again with patient today. She reports mild chest soreness across her chest since CPR and defib. She reports CP worse with movement and deep inspiration, relieved with pain medication. Additionally, undergoing GI eval for concerns of anemia. I had another discussion with patient and she is agreeable with plan of care, she does not desire LHC at this time. Rec f/u as outpatient for further eval (especially prior to her potential knee surgery). Patient verbalized understanding and agreed with plan. Has f/u scheduled.
[2017-03-04] MEDS ORDERED: *HR* Propofol 200 MG/20 ML VIAL IVP ONE (12:10)
[2017-03-04] MEDS ORDERED: Tetracaine/Benzocaine/Butamben 200MG/SPRAY (100SPY/BOT) MM ONE (12:37)
[2017-03-04] MEDS ORDERED: Simethicone 40 MG/0.6 ML MLS IR ONE (12:37)
--- NOTE | 2017-03-04 12:44 | Anesthesia Evaluation PreOp ---
Date of Encounter: 03/04/17 Time of Encounter: 12:45 - Past History Planned Operation: EGD Cardiac History: AK, HTN, Hyperlipidemia, Arrhythmia (AFib), Cardiac Stent, Other (Cardiac Arrest 3-31...Code Blue...revived with Defibrillation X 1) Pulmonary History: COPD PLANT CYTOLOGIST History: Denies Any Significant HX Other Medical History: Denies Any Significant HX Anesthesia History: No Prior Anesthetic Complications Alcohol Use: none Drug use: none Medications and Allergies Captopril 50 mg PO BID 10/14/16 [History] Multivitamin [Multivitamins] 1 tab PO DAILY 10/14/16 [History] Simvastatin [Zocor] 40 mg PO HS 10/14/16 [History] Metoprolol XL (24 HR) Succ [Toprol Xl] 50 mg PO BID 11/16/16 [History] OxyCODONE/APAP 5/325 [Percocet 5/325 MG] 1 each PO Q6HR PRN #30 tablet 11/18/16 [Rx] Diclofenac Sodium [Voltaren] 4 gm TP QID PRN 02/27/17 [History] Docusate [Colace] 100 mg PO DAILY PRN 02/27/17 [History] LORazepam [Ativan] 0.5 mg PO TID PRN 02/27/17 [History] Allergies No Known Allergies Allergy (Verified 10/14/16 07:21) - Meds/Allergy Pre-op Review Medications Reviewed: Yes Allergies Reviewed: Yes Beta Blockers on Current Med List: Yes Anesthesia Results - Labs 03/04/17 04:55 03/04/17 04:55 - Imaging Additional studies: LVEF 60% Anesthesia Exam O2 Sat Weight 68.8 kg O2 Sat by Pulse Oximetry 97 O2 Sat by Pulse Oximetry 96 O2 Sat by Pulse Oximetry 97 O2 Sat by Pulse Oximetry 94 O2 Sat by Pulse Oximetry 97 O2 Sat by Pulse Oximetry 94 O2 Sat by Pulse Oximetry 95 Vital Signs Temp Pulse Resp BP Pulse Ox 98.2 F 98 18 145/83 95 02/27/17 14:21 02/27/17 14:21 02/27/17 14:21 02/27/17 14:21 02/27/17 14:21 Height: 4'9 Weight: 151 lbs NPO (# of Hours): MN Pain Scale: 0 - HEENT Pupil (Motor): Pupils equal, EOMI Mallampati: III Teeth: Edentulous Oral Opening: Less than or equal to 3 - PLANT CYTOLOGIST LOC: Oriented PLANT CYTOLOGIST Motor: Normal RUE, Normal LUE, Normal RLE, Normal LLE, Normal Face PLANT CYTOLOGIST Sensory: Normal: RUE, LUE, RLE, LLE, Face - Cardiac Rhythm: Regular Murmur: None JVD: No Carotid Bruit: No - Pulmonary Breath Sounds: bilateral Clear Respiratory Effort: Symmetrical (On Oxygen) Anesthesia Assess/Plan ASA Score: 4 (CAD, s/p Cardia Arrest, Hx AFib, Anemia) Modified Nguyen Scale for Level of Consciousness: Cooperative, oriented, and tranquil Anesthetic Plan: MAC Monitoring Plan: Standard Monitors Recovery Plan: Other (Discussed MAC, agrees to proceed)
[2017-03-04] MEDS ORDERED: 0.9 % Sodium Chloride 500 ML IVC SCH (12:45)
--- NOTE | 2017-03-04 15:26 | Venous Imaging Report ---
LE Venous Duplex Patient Name:Jenni Bustos Order Number:[id number] Procedure Date:03/03/2017 Date:1930ge:86 yrs Gender:Female Location:[facility] Room #: [id number] Veneer Sorter:Belkis Mccarlos Referring MD:Marly Jain PA-C financial advisor:Moreno Lara MD Reading MD:Matias Bajwa MD , FACS Primary Indications:r/o DVT Secondary Indications: Risk Factors Yes/No Anticoagulants Yes Impressions: Left lower extremity: normal superficial and deep exam. Right lower extremity: normal contralateral exam. Recommendations: After imaging the patient returned to their room. Findings Venous Duplex Results: Right: Venous imaging of the lower extremity reveals full patency and normal vessel compressibility of the right common femoral. Doppler signals in the evaluated veins were normal. Left: Venous imaging of the lower extremity reveals full patency and normal vessel compressibility of the left distal iliac, left common femoral, left superficial femoral, left posterior tibial, left peroneal and left great saphenous. Doppler signals in the evaluated veins were normal. Compression of the left popliteal could not be tolerated. Compression of the left lesser saphenous could not be tolerated. Lower Extremity Venous Duplex Side Vein Compress Spontaneous Flow Augment Diameter (cm) Depth (cm) Left Distal Iliac Normal Yes Phasic Yes Left Common Femoral Normal Yes Phasic Yes Left Superficial Femoral Normal Yes Phasic Yes Left Popliteal Not Tolerated Left Posterior Tibial Normal Yes Phasic Yes Left Peroneal Normal Yes Phasic Yes Left Great Saphenous Normal Yes Phasic Yes Left Lesser Saphenous Not Tolerated Right Common Femoral Normal Yes Phasic Yes Updated by Matias Bajwa MD, FACS on 03/04/2017 3:21:55 PM Matias Bajwa MD electronically signed on 03/04/2017 3:22:21 PM with status of Final
[2017-03-04] MEDS: Magnesium Oxide 400 MG TABLET PO SCH ×2 (15:38→20:53)
[2017-03-04] MEDS: Metoprolol XL (24 HR) Succ 25 MG TAB.ER.24H PO SCH (18:25)
--- NOTE | 2017-03-04 18:33 | Internal Med Progress Note ---
Date of Encounter: 03/04/17 Time of Encounter: 18:28 - Assessment and plan (1) GI bleed Current Visit: Yes Status: Acute Assessment and plan: Today's my first encounter with this patient. We summarize brief hospital stay so far. Brief history: 86/female PCP: Dr. Lara Inpatient consults: Pulmonology/critical care:S/P V. fib arrest. CODE BLUE, successful intubation/ ventilation Cardiology: Elevated troponin/V. fib arrest. Gastroenterology: GI bleed. Patient was referred from her orthopedic surgeon ( Mango Neely) who has scheduled her for knee replacement. In preop evaluation it was noted that patient is a possibility of a urinary tract infection. This was the reason she was referred to the hospital for further evaluation. Patient was hospitalized. Patient had a V. fib arrest likely secondary to hypomagnesemia. CODE BLUE was initiated. Patient was successfully intubated/when directed. Cardiology was consulted for V. fib arrest. Cardiology recommended low-dose beta cintia. Patient was successfully extubated and transferred to [address] [place] [address] for further evaluation. I examined this patient this morning. Patient had a large bowel movement which was dark, tarry in nature. Stool occult blood was positive. Etiology for GI bleed: Multifactorial. 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 Plan: -Discontinue Heparin ( DVT prophylaxis). - SCD - Will monitor Hb. - Transfuse 1 unit PRBC as she has history of CAD with recent positive troponin. - IV PPI 40 mg [id number] - NPO from midnight. - Gastroentrology consulted and will get EGD tomorrow. - plan explained to patient and her daughter. -Patient and her daughter verbalized understanding and they do not have any questions at this point. 03/03/2017 Transfused 1 unit PRBC yesterday and Holding Hb at 9.4 ( yesterday 8.7) Still has black, Tarry stools. on IV PPI 40 mg BID. Plan continue PPI EGD tomorrow NPO from midnight. sheis also complaining of persistent pain in left knee. will get xray and ortho opinion. 03/04/2017 Patient underwent EGD One non bleeding DU GI recommends: PPI BID for 2 months Will give liquid carafate solution No NSAIDs updated patient and family all above. verbalized understanding. Qualifiers: GI bleed type/associated pathology: melena Qualified Code(s): K92.1 - Melena (2) Urinary tract infection Current Visit: Yes Status: Acute Assessment and plan: Urine culture is positive for Escherichia coli. Patient is on presently ceftriaxone: Day 2 Will continue present antibiotics for now 03/03/2017 Ceftriaxone : Day 3 will continue Abx as she has occasional dysuria. Qualifiers: Urinary tract infection type: acute cystitis Hematuria presence: without hematuria Qualified Code(s): N30.00 - Acute cystitis without hematuria (3) Hypomagnesemia Current Visit: Yes Status: Acute Assessment and plan: Persistent hypomagnesemia: I replaced magnesium 4 g. Will recheck magnesium tomorrow. 03/03/2017 awaiting for labs (4) CAD (coronary artery disease) Current Visit: Yes Status: Chronic Assessment and plan: Patient is known to have coronary artery disease. This is the reason we are transfusing her in the event of gastrointestinal bleeding. 03/03/2017 has [place] 16 years back and she has stent placed in 16 years back. Qualifiers: Coronary Disease-Associated Artery/Lesion type: [place] artery [place] vs. transplanted heart: [place] heart Associated angina: without angina Qualified Code(s): I25.10 - Atherosclerotic heart disease of [place] coronary artery without angina pectoris (5) Elevated troponin Current Visit: Yes Status: Acute Assessment and plan: Likely demand ischemia. Likely multifactorial Since now the patient is a GI bleed, we will take this and transfuse her 1 unit. (6) DVT prophylaxis Current Visit: Yes Status: Acute Assessment and plan: SCD - Subjective Interval history: Patient seen and examined. Chart reviewed. Patient is comfortably lying in bed. She does not have any complaint at this point. She denies abdominal pain, chest pain, nausea, vomiting, diarrhea or dizziness. 03/03/2017 seen and examined. daughter at bedside. has persistent left knee pain. occasional pain in chest area ( generalized) eating well and denies nausea and vomiting. 03/04/2017 seen and examined. Underwent EGD multiple ulcers in duodenal area. will follow GI recommendations. - Constitutional Vitals: Temp Pulse Resp BP Pulse Ox 97.6 F 104 18 118/99 98 03/04/17 16:00 03/04/17 16:00 03/04/17 16:00 03/04/17 16:00 03/04/17 16:00 General appearance: Present: A&O X 3, pleasant, no acute distress, answers questions appropriately - Head Head exam: Present: atraumatic, normocephalic - Eye Eye exam: Present: PERRL, conjuntiva pink, sclera anicteric Pupils: Present: PERRL - Neck Neck exam general surgery: Present: supple, trachea midline. Absent: lymphadenopathy - Respiratory Respiratory exam: Present: CTAB. Absent: accessory muscle use, rales, rhonchi, wheezes - Cardiovascular Cardiovascular exam: Present: RRR, +S1, +S2. Absent: diastolic murmur, gallop, rubs, systolic murmur - GI/Abdominal GI/Abdominal exam: Present: normal bowel sounds, soft, no peritoneal signs. Absent: distended, tenderness - Extremities Exam Extremities exam: Present: warm, radial pulses palpable and symetrical. Absent : calf tenderness, cyanotic, pedal edema - Neurological Exam Neurological exam: Present: CN II-XII intact, oriented X3, no focal deficits. Absent: pronater drift, facial droop, speech deficit - Skin Skin exam: Present: dry, intact Internal Medicine: Result - Labs CBC & Chem 7: 03/04/17 04:55 03/04/17 04:55 Labs: Short CBC 03/04/17 Range/Units 04:55 WBC 16.8 H (4.3-11.1) K/mcL Hgb 9.2 L (11.5-15.4) g/dL Hct 28.0 L (35.3-44.9) % Plt Count 414 H (140-400) K/mcL Neutrophils # 13.6 H (1.6-8.9) K/mcL BMP 03/04/17 04:55 Sodium 133 L Potassium 3.9 Chloride 98 Carbon Dioxide 29 BUN 7 Creatinine 0.51 L Glucose 87 Calcium 9.1 Liver Function 03/04/17 Range/Units 04:55 Total Bilirubin 0.4 (0.2-1.2) mg/dL AST 23 (5-34) Units/L ALT 29 (0-55) Units/L Alkaline Phosphatase 137 H (38-126) Units/L Albumin 1.6 L (3.5-5.0) g/dL - ABG Interpretation ABG results: ABG ABG pH 7.51 pH Units (7.32-7.45) H 02/28/17 04:45 ABG pCO2 30 mmHg (35-45) L 02/28/17 04:45 ABG pO2 111 mmHg (85-104) H 02/28/17 04:45 ABG O2 Saturation 99 % (95-98) H 02/28/17 04:45 - Impressions Impressions Knee X-Ray 03/03/17 17:58 IMPRESSION: Osteopenia. No displaced fracture. Advanced tricompartmental osteoarthritis. Small joint effusion. D/ / 03/03/2017 22:01:08 Ned Figueroa MD / raman Interpreting Provider: Ned Figueroa MD - VTE Documentation of Mechanical Device: Intermittent pneumatic compression device Consult Discharge Plan - Plan Referrals: Moreno Lara Jr, MD [Primary Care Provider] -
[2017-03-04] MEDS: Sucralfate 1 GM TABLET PO SCH (20:53)
[2017-03-04] MEDS: *HR* LORazepam 0.5 MG TABLET PO PRN (23:21)
[2017-03-05] MEDS: *HR* Morphine 2 MG/ML SYRINGE IVP SCH ×6 (05:19→20:35)
[2017-03-05] MEDS: Pantoprazole 40 MG VIAL IVP SCH ×2 (05:19→17:16)
[2017-03-05 05:27] LABS: Basophils % 0.2 %; Eosinophils # 0.1 K/mcL (0.0-0.6); Eosinophils % 0.4 %; Hemoglobin 9.1 g/dL (11.5-15.4); Immature Granulocytes % 0.7 % (0-4); Lymphocytes # 1.1 K/mcL (0.6-4.6); Lymphocytes % 7.4 %; Mean Corpuscular HGB Conc 32.5 g/dL (31.6-35.5); Mean Corpuscular Hemoglobin 30.5 pg (28.0-33.3); Mean Platelet Volume 8.9 fL (9.4-12.4); Monocytes # 1.5 K/mcL (0.0-1.3); Monocytes % 10.3 %; Platelet Count 378 K/mcL (140-400); Red Blood Count 2.98 M/mcL (3.82-4.97); Red Cell Distribution Width 13.9 % (11.5-14.5)
[2017-03-05 05:45] LABS: Alanine Aminotransferase 38 Units/L (0-55); Albumin/Globulin Ratio 0.4 (1.1-2.2); Alkaline Phosphatase 131 Units/L (38-126); Aspartate Amino Transferase 34 Units/L (5-34); BUN/Creatinine Ratio 16 (6-26); Bilirubin,Total 0.5 mg/dL (0.2-1.2); Blood Urea Nitrogen 8 mg/dL (7-20); Calcium 8.9 mg/dL (8.6-10.8); Carbon Dioxide 31 mEq/L (19-29); Chloride 98 mEq/L (98-109); Globulin 3.9 g/dL (2.4-3.5); Glucose 91 mg/dL (70-99); Magnesium 1.4 mg/dL (1.6-2.6); Osmolality,Calculated 276 (280-300); Potassium 4.1 mEq/L (3.5-4.5); Sodium 134 mEq/L (136-145); Total Protein 5.5 g/dL (6.0-8.3); eGFR For African Americans > 60 (> 60); eGFR For Non-African Americans > 60 (> 60)
[2017-03-05 05:46] LABS: Albumin 1.6 g/dL (3.5-5.0)
[2017-03-05] MEDS: Magnesium Oxide 400 MG TABLET PO SCH ×2 (09:40→20:35)
[2017-03-05] MEDS: Sucralfate 1 GM TABLET PO SCH ×3 (09:40→20:35)
[2017-03-05] MEDS: Metoprolol XL (24 HR) Succ 25 MG TAB.ER.24H PO SCH (09:40)
[2017-03-05] MEDS ORDERED: Magnesium Sulfate 2 GM in D5% in Water 100 ML IVPB ONE (12:02)
[2017-03-05] MEDS: *HR* Morphine 2 MG/ML SYRINGE IVP PRN ×3 (14:22→23:39)
[2017-03-05] MEDS: *HR* LORazepam 0.5 MG TABLET PO PRN ×2 (16:35→23:39)
--- NOTE | 2017-03-05 17:10 | Internal Med Progress Note ---
Date of Encounter: 03/05/17 Time of Encounter: 17:07 - Assessment and plan (1) GI bleed Current Visit: Yes Status: Acute Assessment and plan: Today's my first encounter with this patient. We summarize brief hospital stay so far. Brief history: 86/female PCP: Dr. Lara Inpatient consults: Pulmonology/critical care:S/P V. fib arrest. CODE BLUE, successful intubation/ ventilation Cardiology: Elevated troponin/V. fib arrest. Gastroenterology: GI bleed. Patient was referred from her orthopedic surgeon ( Mango Neely) who has scheduled her for knee replacement. In preop evaluation it was noted that patient is a possibility of a urinary tract infection. This was the reason she was referred to the hospital for further evaluation. Patient was hospitalized. Patient had a V. fib arrest likely secondary to hypomagnesemia. CODE BLUE was initiated. Patient was successfully intubated/when directed. Cardiology was consulted for V. fib arrest. Cardiology recommended low-dose beta cintia. Patient was successfully extubated and transferred to [address] [place] [address] for further evaluation. I examined this patient this morning. Patient had a large bowel movement which was dark, tarry in nature. Stool occult blood was positive. Etiology for GI bleed: Multifactorial. 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 Plan: -Discontinue Heparin ( DVT prophylaxis). - SCD - Will monitor Hb. - Transfuse 1 unit PRBC as she has history of CAD with recent positive troponin. - IV PPI 40 mg [id number] - NPO from midnight. - Gastroentrology consulted and will get EGD tomorrow. - plan explained to patient and her daughter. -Patient and her daughter verbalized understanding and they do not have any questions at this point. 03/03/2017 Transfused 1 unit PRBC yesterday and Holding Hb at 9.4 ( yesterday 8.7) Still has black, Tarry stools. on IV PPI 40 mg BID. Plan continue PPI EGD tomorrow NPO from midnight. sheis also complaining of persistent pain in left knee. will get xray and ortho opinion. 03/04/2017 Patient underwent EGD One non bleeding DU GI recommends: PPI BID for 2 months Will give liquid carafate solution No NSAIDs updated patient and family all above. verbalized understanding. 03/05/2017 stable Hb. still has malenic stool but that is likely from ulcerative bleed. will monitor closely. labs in AM Qualifiers: GI bleed type/associated pathology: melena Qualified Code(s): K92.1 - Melena (2) Urinary tract infection Current Visit: Yes Status: Acute Assessment and plan: Urine culture is positive for Escherichia coli. Patient is on presently ceftriaxone: Day 2 Will continue present antibiotics for now 03/03/2017 Ceftriaxone : Day 3 will continue Abx as she has occasional dysuria. 03/05/2017 will stop Abx ( completed Day 7) Qualifiers: Urinary tract infection type: acute cystitis Hematuria presence: without hematuria Qualified Code(s): N30.00 - Acute cystitis without hematuria (3) Hypomagnesemia Current Visit: Yes Status: Acute Assessment and plan: Persistent hypomagnesemia: I replaced magnesium 4 g. Will recheck magnesium tomorrow. 03/03/2017 awaiting for labs 03/05/2017 still has Mg of 1.2 will replace and will get labs in AM. (4) CAD (coronary artery disease) Current Visit: Yes Status: Chronic Assessment and plan: Patient is known to have coronary artery disease. This is the reason we are transfusing her in the event of gastrointestinal bleeding. 03/03/2017 has [place] 16 years back and she has stent placed in 16 years back. Qualifiers: Coronary Disease-Associated Artery/Lesion type: [place] artery [place] vs. transplanted heart: [place] heart Associated angina: without angina Qualified Code(s): I25.10 - Atherosclerotic heart disease of [place] coronary artery without angina pectoris (5) Elevated troponin Current Visit: Yes Status: Acute Assessment and plan: Likely demand ischemia. Likely multifactorial Since now the patient is a GI bleed, we will take this and transfuse her 1 unit. (6) DVT prophylaxis Current Visit: Yes Status: Acute Assessment and plan: SCD - Subjective Interval history: Patient seen and examined. Chart reviewed. Patient is comfortably lying in bed. She does not have any complaint at this point. She denies abdominal pain, chest pain, nausea, vomiting, diarrhea or dizziness. 03/03/2017 seen and examined. daughter at bedside. has persistent left knee pain. occasional pain in chest area ( generalized) eating well and denies nausea and vomiting. 03/04/2017 seen and examined. Underwent EGD multiple ulcers in duodenal area. will follow GI recommendations. 03/05/2017 seen and examined. still has tio. likely residual blood from ulcerative bleed. today she sat down in chair from her bed. it was extremely painful transition but she did with great confidence - Constitutional Vitals: Temp Pulse Resp BP Pulse Ox 98.2 F 117 18 120/62 90 03/05/17 16:23 03/05/17 16:23 03/05/17 16:23 03/05/17 16:23 03/05/17 16:23 General appearance: Present: A&O X 3, pleasant, no acute distress, answers questions appropriately - Head Head exam: Present: atraumatic, normocephalic - Eye Eye exam: Present: PERRL, conjuntiva pink, sclera anicteric Pupils: Present: PERRL - Neck Neck exam general surgery: Present: supple, trachea midline. Absent: lymphadenopathy - Respiratory Respiratory exam: Present: CTAB. Absent: accessory muscle use, rales, rhonchi, wheezes - Cardiovascular Cardiovascular exam: Present: RRR, +S1, +S2. Absent: diastolic murmur, gallop, rubs, systolic murmur - GI/Abdominal GI/Abdominal exam: Present: normal bowel sounds, soft, no peritoneal signs. Absent: distended, tenderness - Extremities Exam Extremities exam: Present: warm, radial pulses palpable and symetrical. Absent : calf tenderness, cyanotic, pedal edema - Neurological Exam Neurological exam: Present: CN II-XII intact, oriented X3, no focal deficits. Absent: pronater drift, facial droop, speech deficit - Skin Skin exam: Present: dry, intact Internal Medicine: Result - Labs CBC & Chem 7: 03/05/17 05:20 03/05/17 05:20 Labs: Short CBC 03/05/17 Range/Units 05:20 WBC 14.8 H (4.3-11.1) K/mcL Hgb 9.1 L (11.5-15.4) g/dL Hct 28.0 L (35.3-44.9) % Plt Count 378 (140-400) K/mcL Neutrophils # 12.0 H (1.6-8.9) K/mcL BMP 03/05/17 05:20 Sodium 134 L Potassium 4.1 Chloride 98 Carbon Dioxide 31 H BUN 8 Creatinine 0.50 L Glucose 91 Calcium 8.9 Liver Function 03/05/17 Range/Units 05:20 Total Bilirubin 0.5 (0.2-1.2) mg/dL AST 34 (5-34) Units/L ALT 38 (0-55) Units/L Alkaline Phosphatase 131 H (38-126) Units/L Albumin 1.6 L (3.5-5.0) g/dL - ABG Interpretation ABG results: ABG ABG pH 7.51 pH Units (7.32-7.45) H 02/28/17 04:45 ABG pCO2 30 mmHg (35-45) L 02/28/17 04:45 ABG pO2 111 mmHg (85-104) H 02/28/17 04:45 ABG O2 Saturation 99 % (95-98) H 02/28/17 04:45 - VTE Documentation of Mechanical Device: Intermittent pneumatic compression device Consult Discharge Plan - Plan Referrals: Moreno Lara Jr, MD [Primary Care Provider] -
[2017-03-06] MEDS: *HR* Morphine 2 MG/ML SYRINGE IVP SCH ×7 (01:43→23:01)
[2017-03-06] MEDS: Pantoprazole 40 MG VIAL IVP SCH ×2 (05:06→16:41)
[2017-03-06 06:14] LABS: Basophils % 0.1 %; Eosinophils % 0.4 %; Hematocrit 27.7 % (35.3-44.9); Hemoglobin 8.7 g/dL (11.5-15.4); Immature Granulocytes % 0.7 % (0-4); Lymphocytes # 0.8 K/mcL (0.6-4.6); Lymphocytes % 6.8 %; Mean Corpuscular HGB Conc 31.4 g/dL (31.6-35.5); Mean Corpuscular Hemoglobin 29.4 pg (28.0-33.3); Mean Corpuscular Volume 93.6 fL (83.0-100.0); Mean Platelet Volume 8.7 fL (9.4-12.4); Monocytes # 1.4 K/mcL (0.0-1.3); Monocytes % 12.6 %; Neutrophils # 8.9 K/mcL (1.6-8.9); Platelet Count 343 K/mcL (140-400); Red Blood Count 2.96 M/mcL (3.82-4.97); Red Cell Distribution Width 13.5 % (11.5-14.5); Segmented Neutrophils % 79.4 %
[2017-03-06 06:16] LABS: Alanine Aminotransferase 50 Units/L (0-55); Albumin/Globulin Ratio 0.4 (1.1-2.2); Alkaline Phosphatase 126 Units/L (38-126); Aspartate Amino Transferase 43 Units/L (5-34); BUN/Creatinine Ratio 17 (6-26); Bilirubin,Total 0.5 mg/dL (0.2-1.2); Blood Urea Nitrogen 8 mg/dL (7-20); Carbon Dioxide 32 mEq/L (19-29); Chloride 97 mEq/L (98-109); Globulin 3.6 g/dL (2.4-3.5); Glucose 104 mg/dL (70-99); Magnesium 1.5 mg/dL (1.6-2.6); Osmolality,Calculated 277 (280-300); Sodium 134 mEq/L (136-145); Total Protein 5.2 g/dL (6.0-8.3); eGFR For African Americans > 60 (> 60); eGFR For Non-African Americans > 60 (> 60)
[2017-03-06 06:17] LABS: Albumin 1.6 g/dL (3.5-5.0)
[2017-03-06] MEDS: Metoprolol XL (24 HR) Succ 25 MG TAB.ER.24H PO SCH (09:49)
[2017-03-06] MEDS: Sucralfate 1 GM TABLET PO SCH ×3 (09:49→19:38)
[2017-03-06] MEDS: Magnesium Oxide 400 MG TABLET PO SCH ×2 (09:49→19:38)
--- NOTE | 2017-03-06 16:49 | Internal Med Progress Note ---
Date of Encounter: 03/06/17 Time of Encounter: 16:45 - Assessment and plan (1) GI bleed Current Visit: Yes Status: Acute Assessment and plan: Today's my first encounter with this patient. We summarize brief hospital stay so far. Brief history: 86/female PCP: Dr. Lara Inpatient consults: Pulmonology/critical care:S/P V. fib arrest. CODE BLUE, successful intubation/ ventilation Cardiology: Elevated troponin/V. fib arrest. Gastroenterology: GI bleed. Patient was referred from her orthopedic surgeon ( Mango Neely) who has scheduled her for knee replacement. In preop evaluation it was noted that patient is a possibility of a urinary tract infection. This was the reason she was referred to the hospital for further evaluation. Patient was hospitalized. Patient had a V. fib arrest likely secondary to hypomagnesemia. CODE BLUE was initiated. Patient was successfully intubated/when directed. Cardiology was consulted for V. fib arrest. Cardiology recommended low-dose beta cintia. Patient was successfully extubated and transferred to [address] [place] [address] for further evaluation. I examined this patient this morning. Patient had a large bowel movement which was dark, tarry in nature. Stool occult blood was positive. Etiology for GI bleed: Multifactorial. 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 Plan: -Discontinue Heparin ( DVT prophylaxis). - SCD - Will monitor Hb. - Transfuse 1 unit PRBC as she has history of CAD with recent positive troponin. - IV PPI 40 mg [id number] - NPO from midnight. - Gastroentrology consulted and will get EGD tomorrow. - plan explained to patient and her daughter. -Patient and her daughter verbalized understanding and they do not have any questions at this point. 03/03/2017 Transfused 1 unit PRBC yesterday and Holding Hb at 9.4 ( yesterday 8.7) Still has black, Tarry stools. on IV PPI 40 mg BID. Plan continue PPI EGD tomorrow NPO from midnight. sheis also complaining of persistent pain in left knee. will get xray and ortho opinion. 03/04/2017 Patient underwent EGD One non bleeding DU GI recommends: PPI BID for 2 months Will give liquid carafate solution No NSAIDs updated patient and family all above. verbalized understanding. 03/05/2017 stable Hb. still has malenic stool but that is likely from ulcerative bleed. will monitor closely. labs in AM 03/06/2017 Hemoglobin 8.7. Still has ongoing melena. Patient is on PPI twice a day. Patient is on liquid Carafate. We will recheck labs tomorrow. If she has a persistent drop in hemoglobin and then we will transfuse 1 unit PRBC. Qualifiers: GI bleed type/associated pathology: melena Qualified Code(s): K92.1 - Melena (2) Urinary tract infection Current Visit: Yes Status: Acute Assessment and plan: Urine culture is positive for Escherichia coli. Patient is on presently ceftriaxone: Day 2 Will continue present antibiotics for now 03/03/2017 Ceftriaxone : Day 3 will continue Abx as she has occasional dysuria. 03/05/2017 will stop Abx ( completed Day 7) Qualifiers: Urinary tract infection type: acute cystitis Hematuria presence: without hematuria Qualified Code(s): N30.00 - Acute cystitis without hematuria (3) Hypomagnesemia Current Visit: Yes Status: Acute Assessment and plan: Persistent hypomagnesemia: I replaced magnesium 4 g. Will recheck magnesium tomorrow. 03/03/2017 awaiting for labs 03/05/2017 still has Mg of 1.2 will replace and will get labs in AM. (4) CAD (coronary artery disease) Current Visit: Yes Status: Chronic Assessment and plan: Patient is known to have coronary artery disease. This is the reason we are transfusing her in the event of gastrointestinal bleeding. 03/03/2017 has [place] 16 years back and she has stent placed in 16 years back. Qualifiers: Coronary Disease-Associated Artery/Lesion type: [place] artery [place] vs. transplanted heart: [place] heart Associated angina: without angina Qualified Code(s): I25.10 - Atherosclerotic heart disease of [place] coronary artery without angina pectoris (5) Elevated troponin Current Visit: Yes Status: Acute Assessment and plan: Likely demand ischemia. Likely multifactorial Since now the patient is a GI bleed, we will take this and transfuse her 1 unit. (6) DVT prophylaxis Current Visit: Yes Status: Acute - Subjective Interval history: Patient seen and examined. Chart reviewed. Patient is comfortably lying in bed. She does not have any complaint at this point. She denies abdominal pain, chest pain, nausea, vomiting, diarrhea or dizziness. 03/03/2017 seen and examined. daughter at bedside. has persistent left knee pain. occasional pain in chest area ( generalized) eating well and denies nausea and vomiting. 03/04/2017 seen and examined. Underwent EGD multiple ulcers in duodenal area. will follow GI recommendations. 03/05/2017 seen and examined. still has tio. likely residual blood from ulcerative bleed. today she sat down in chair from her bed. it was extremely painful transition but she did with great confidence 03/06/2017 Seen and examined. Melena has improved substantially as compared to yesterday . Patient did not move from bed to chair today. Yesterday she needed 3 people to transfer from bed to chair. Patient was in persistent pain today and that is the reason she could not get on the chair in spite of being on appropriate pain medication. - Constitutional Vitals: Temp Pulse Resp BP Pulse Ox 97.8 F 91 17 125/70 97 03/06/17 07:00 03/06/17 15:00 03/06/17 15:00 03/06/17 15:00 03/06/17 15:00 General appearance: Present: A&O X 3, pleasant, no acute distress, answers questions appropriately - Head Head exam: Present: atraumatic, normocephalic - Eye Eye exam: Present: PERRL, conjuntiva pink, sclera anicteric Pupils: Present: PERRL - Neck Neck exam general surgery: Present: supple, trachea midline. Absent: lymphadenopathy - Respiratory Respiratory exam: Present: CTAB. Absent: accessory muscle use, rales, rhonchi, wheezes - Cardiovascular Cardiovascular exam: Present: RRR, +S1, +S2. Absent: diastolic murmur, gallop, rubs, systolic murmur - GI/Abdominal GI/Abdominal exam: Present: normal bowel sounds, soft, no peritoneal signs. Absent: distended, tenderness - Extremities Exam Extremities exam: Present: warm, radial pulses palpable and symetrical. Absent : calf tenderness, cyanotic, pedal edema - Neurological Exam Neurological exam: Present: CN II-XII intact, oriented X3, no focal deficits. Absent: pronater drift, facial droop, speech deficit - Skin Skin exam: Present: dry, intact Internal Medicine: Result - Labs CBC & Chem 7: 03/06/17 05:52 03/06/17 05:52 Labs: Short CBC 03/06/17 Range/Units 05:52 WBC 11.2 H (4.3-11.1) K/mcL Hgb 8.7 L (11.5-15.4) g/dL Hct 27.7 L (35.3-44.9) % Plt Count 343 (140-400) K/mcL Neutrophils # 8.9 (1.6-8.9) K/mcL BMP 03/06/17 05:52 Sodium 134 L Potassium 4.0 Chloride 97 L Carbon Dioxide 32 H BUN 8 Creatinine 0.46 L Glucose 104 H Calcium 9.0 Liver Function 03/06/17 Range/Units 05:52 Total Bilirubin 0.5 (0.2-1.2) mg/dL AST 43 H (5-34) Units/L ALT 50 (0-55) Units/L Alkaline Phosphatase 126 (38-126) Units/L Albumin 1.6 L (3.5-5.0) g/dL - ABG Interpretation ABG results: ABG ABG pH 7.51 pH Units (7.32-7.45) H 02/28/17 04:45 ABG pCO2 30 mmHg (35-45) L 02/28/17 04:45 ABG pO2 111 mmHg (85-104) H 02/28/17 04:45 ABG O2 Saturation 99 % (95-98) H 02/28/17 04:45 - VTE Documentation of Mechanical Device: Intermittent pneumatic compression device Consult Discharge Plan - Plan Referrals: Leno Dickson MD [Partnered Physician] - 03/11/17 1:30 pm Moreno Lara Jr, MD [Primary Care Provider] -
[2017-03-06] MEDS: *HR* LORazepam 0.5 MG TABLET PO PRN (21:53)
[2017-03-07] MEDS: *HR* Morphine 2 MG/ML SYRINGE IVP PRN ×2 (01:04→21:49)
[2017-03-07] MEDS: Pantoprazole 40 MG VIAL IVP SCH ×2 (05:11→17:02)
[2017-03-07] MEDS: *HR* Morphine 2 MG/ML SYRINGE IVP SCH ×2 (05:11→10:04)
[2017-03-07] MEDS: Magnesium Oxide 400 MG TABLET PO SCH ×2 (10:03→21:45)
[2017-03-07] MEDS: Metoprolol XL (24 HR) Succ 25 MG TAB.ER.24H PO SCH (10:03)
[2017-03-07] MEDS: Sucralfate 1 GM TABLET PO SCH ×3 (10:04→21:45)
[2017-03-07] MEDS: *HR* OxyCODONE/APAP 5/325 TABLET PO PRN ×2 (14:02→18:18)
[2017-03-07 14:50] LABS: Urine Collection Duration RANDOM hr; Urine Collection Volume RANDOM mL
--- NOTE | 2017-03-07 17:17 | Internal Med Progress Note ---
Date of Encounter: 03/09/17 Time of Encounter: 18:55 - Assessment and plan (1) GI bleed Current Visit: Yes Status: Acute Assessment and plan: Today's my first encounter with this patient. We summarize brief hospital stay so far. Brief history: 86/female PCP: Dr. Lara Inpatient consults: Pulmonology/critical care:S/P V. fib arrest. CODE BLUE, successful intubation/ ventilation Cardiology: Elevated troponin/V. fib arrest. Gastroenterology: GI bleed. Patient was referred from her orthopedic surgeon ( Mango Neely) who has scheduled her for knee replacement. In preop evaluation it was noted that patient is a possibility of a urinary tract infection. This was the reason she was referred to the hospital for further evaluation. Patient was hospitalized. Patient had a V. fib arrest likely secondary to hypomagnesemia. CODE BLUE was initiated. Patient was successfully intubated/when directed. Cardiology was consulted for V. fib arrest. Cardiology recommended low-dose beta cintia. Patient was successfully extubated and transferred to [address] [place] [address] for further evaluation. I examined this patient this morning. Patient had a large bowel movement which was dark, tarry in nature. Stool occult blood was positive. Etiology for GI bleed: Multifactorial. 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 Plan: -Discontinue Heparin ( DVT prophylaxis). - SCD - Will monitor Hb. - Transfuse 1 unit PRBC as she has history of CAD with recent positive troponin. - IV PPI 40 mg [id number] - NPO from midnight. - Gastroentrology consulted and will get EGD tomorrow. - plan explained to patient and her daughter. -Patient and her daughter verbalized understanding and they do not have any questions at this point. 03/03/2017 Transfused 1 unit PRBC yesterday and Holding Hb at 9.4 ( yesterday 8.7) Still has black, Tarry stools. on IV PPI 40 mg BID. Plan continue PPI EGD tomorrow NPO from midnight. sheis also complaining of persistent pain in left knee. will get xray and ortho opinion. 03/04/2017 Patient underwent EGD One non bleeding [facility] GI recommends: PPI BID for 2 months Will give liquid carafate solution No NSAIDs updated patient and family all above. verbalized understanding. 03/05/2017 stable Hb. still has malenic stool but that is likely from ulcerative bleed. will monitor closely. labs in AM 03/06/2017 Hemoglobin 8.7. Still has ongoing melena. Patient is on PPI twice a day. Patient is on liquid Carafate. We will recheck labs tomorrow. If she has a persistent drop in hemoglobin and then we will transfuse 1 unit PRBC. 03/07/2017 Patient is maintaining her hemoglobin/hematocrit Patient is on IV PPI. Noted that patient has a low magnesium but that is the reason: IV PPI We will continue to monitor her labs. Qualifiers: GI bleed type/associated pathology: melena Qualified Code(s): K92.1 - Melena (2) Urinary tract infection Current Visit: Yes Status: Acute Assessment and plan: Urine culture is positive for Escherichia coli. Patient is on presently ceftriaxone: Day 2 Will continue present antibiotics for now 03/03/2017 Ceftriaxone : Day 3 will continue Abx as she has occasional dysuria. 03/05/2017 will stop Abx ( completed Day 7) Qualifiers: Urinary tract infection type: acute cystitis Hematuria presence: without hematuria Qualified Code(s): N30.00 - Acute cystitis without hematuria (3) Hypomagnesemia Current Visit: Yes Status: Acute Assessment and plan: Persistent hypomagnesemia: I replaced magnesium 4 g. Will recheck magnesium tomorrow. 03/03/2017 awaiting for labs 03/05/2017 still has Mg of 1.2 will replace and will get labs in AM. (4) CAD (coronary artery disease) Current Visit: Yes Status: Chronic Assessment and plan: Patient is known to have coronary artery disease. This is the reason we are transfusing her in the event of gastrointestinal bleeding. 03/03/2017 has DC 16 years back and she has stent placed in 16 years back. Qualifiers: Coronary Disease-Associated Artery/Lesion type: [place] artery [place] vs. transplanted heart: [place] heart Associated angina: without angina Qualified Code(s): I25.10 - Atherosclerotic heart disease of [place] coronary artery without angina pectoris (5) Elevated troponin Current Visit: Yes Status: Acute Assessment and plan: Likely demand ischemia. Likely multifactorial Since now the patient is a GI bleed, we will take this and transfuse her 1 unit. (6) DVT prophylaxis Current Visit: Yes Status: Acute Assessment and plan: SCD - Subjective Interval history: Patient seen and examined. Chart reviewed. Patient is comfortably lying in bed. She does not have any complaint at this point. She denies abdominal pain, chest pain, nausea, vomiting, diarrhea or dizziness. 03/03/2017 seen and examined. daughter at bedside. has persistent left knee pain. occasional pain in chest area ( generalized) eating well and denies nausea and vomiting. 03/04/2017 seen and examined. Underwent EGD multiple ulcers in duodenal area. will follow GI recommendations. 03/05/2017 seen and examined. still has tio. likely residual blood from ulcerative bleed. today she sat down in chair from her bed. it was extremely painful transition but she did with great confidence 03/06/2017 Seen and examined. Melena has improved substantially as compared to yesterday . Patient did not move from bed to chair today. Yesterday she needed 3 people to transfer from bed to chair. Patient was in persistent pain today and that is the reason she could not get on the chair in spite of being on appropriate pain medication. 03/07/2017 Seen and examined. Patient does not have any more melena. the patient has a persistent diarrhea. Physical diarrhea pauses and tomorrow we will get C. difficile. She was able to sit up from the bed and able to go to chair. Patient required more than 3 people for transfer. - Constitutional Vitals: Temp Pulse Resp BP Pulse Ox 98.1 F 103 17 122/72 95 03/07/17 15:55 03/07/17 15:00 03/07/17 15:00 03/07/17 15:00 03/07/17 15:00 General appearance: Present: A&O X 3, pleasant, no acute distress, answers questions appropriately - Head Head exam: Present: atraumatic, normocephalic - Eye Eye exam: Present: PERRL, conjuntiva pink, sclera anicteric Pupils: Present: PERRL - Neck Neck exam general surgery: Present: supple, trachea midline. Absent: lymphadenopathy - Respiratory Respiratory exam: Present: CTAB. Absent: accessory muscle use, rales, rhonchi, wheezes - Cardiovascular Cardiovascular exam: Present: RRR, +S1, +S2. Absent: diastolic murmur, gallop, rubs, systolic murmur - GI/Abdominal GI/Abdominal exam: Present: normal bowel sounds, soft, no peritoneal signs. Absent: distended, tenderness - Extremities Exam Extremities exam: Present: warm, radial pulses palpable and symetrical. Absent : calf tenderness, cyanotic, pedal edema - Neurological Exam Neurological exam: Present: CN II-XII intact, oriented X3, no focal deficits. Absent: pronater drift, facial droop, speech deficit - Skin Skin exam: Present: dry, intact Internal Medicine: Result - Labs CBC & Chem 7: 03/09/17 09:25 03/09/17 09:25 - ABG Interpretation ABG results: ABG ABG pH 7.51 pH Units (7.32-7.45) H 02/28/17 04:45 ABG pCO2 30 mmHg (35-45) L 02/28/17 04:45 ABG pO2 111 mmHg (85-104) H 02/28/17 04:45 ABG O2 Saturation 99 % (95-98) H 02/28/17 04:45 - VTE Documentation of Mechanical Device: Intermittent pneumatic compression device Consult Discharge Plan - Plan Referrals: Leno Dickson MD [Partnered Physician] - 03/11/17 1:30 pm Moreno Lara Jr, MD [Primary Care Provider] -
[2017-03-08] MEDS: *HR* OxyCODONE/APAP 5/325 TABLET PO PRN ×3 (01:15→12:42)
[2017-03-08] MEDS: *HR* LORazepam 0.5 MG TABLET PO PRN (01:16)
[2017-03-08] MEDS: Pantoprazole 40 MG VIAL IVP SCH ×2 (04:52→17:12)
[2017-03-08] MEDS: Metoprolol XL (24 HR) Succ 25 MG TAB.ER.24H PO SCH (07:41)
[2017-03-08] MEDS: Sucralfate 1 GM TABLET PO SCH ×3 (07:41→20:28)
[2017-03-08] MEDS: Magnesium Oxide 400 MG TABLET PO SCH ×2 (07:42→20:28)
[2017-03-08 08:59] LABS: Basophils % 0.2 %; Eosinophils % 0.4 %; Hematocrit 28.6 % (35.3-44.9); Hemoglobin 9.1 g/dL (11.5-15.4); Immature Granulocytes % 0.7 % (0-4); Immature Platelets 1.9 % (1.1-6.1); Lymphocytes # 0.9 K/mcL (0.6-4.6); Lymphocytes % 8.7 %; Mean Corpuscular HGB Conc 31.8 g/dL (31.6-35.5); Mean Corpuscular Volume 94.4 fL (83.0-100.0); Mean Platelet Volume 8.9 fL (9.4-12.4); Monocytes # 1.2 K/mcL (0.0-1.3); Monocytes % 11.6 %; Neutrophils # 8.2 K/mcL (1.6-8.9); Platelet Count 357 K/mcL (140-400); Red Blood Count 3.03 M/mcL (3.82-4.97); Red Cell Distribution Width 13.4 % (11.5-14.5); Segmented Neutrophils % 78.4 %
--- NOTE | 2017-03-08 09:03 | Internal Med Progress Note ---
Date of Encounter: 03/08/17 Time of Encounter: 09:03 - Assessment and plan (1) C. difficile diarrhea Current Visit: Yes Status: Acute Assessment and plan: Patient has a C. difficile diarrhea. More than 4 bowel movements noted today. No yahir blood/no melena Plan: -We will continue IV fluid -IV metronidazole 500 mg every 8 hourly -Side effects explained to the patient. (2) GI bleed Current Visit: Yes Status: Acute Assessment and plan: Today's my first encounter with this patient. We summarize brief hospital stay so far. Brief history: 86/female PCP: Dr. Lara Inpatient consults: Pulmonology/critical care:S/P V. fib arrest. CODE BLUE, successful intubation/ ventilation Cardiology: Elevated troponin/V. fib arrest. Gastroenterology: GI bleed. Patient was referred from her orthopedic surgeon ( Mango Neely) who has scheduled her for knee replacement. In preop evaluation it was noted that patient is a possibility of a urinary tract infection. This was the reason she was referred to the hospital for further evaluation. Patient was hospitalized. Patient had a V. fib arrest likely secondary to hypomagnesemia. CODE BLUE was initiated. Patient was successfully intubated/when directed. Cardiology was consulted for V. fib arrest. Cardiology recommended low-dose beta cintia. Patient was successfully extubated and transferred to [address] [place] [address] for further evaluation. I examined this patient this morning. Patient had a large bowel movement which was dark, tarry in nature. Stool occult blood was positive. Etiology for GI bleed: Multifactorial. 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 Plan: -Discontinue Heparin ( DVT prophylaxis). - SCD - Will monitor Hb. - Transfuse 1 unit PRBC as she has history of CAD with recent positive troponin. - IV PPI 40 mg [id number] - NPO from midnight. - Gastroentrology consulted and will get EGD tomorrow. - plan explained to patient and her daughter. -Patient and her daughter verbalized understanding and they do not have any questions at this point. 03/03/2017 Transfused 1 unit PRBC yesterday and Holding Hb at 9.4 ( yesterday 8.7) Still has black, Tarry stools. on IV PPI 40 mg BID. Plan continue PPI EGD tomorrow NPO from midnight. sheis also complaining of persistent pain in left knee. will get xray and ortho opinion. 03/04/2017 Patient underwent EGD One non bleeding [facility] GI recommends: PPI BID for 2 months Will give liquid carafate solution No NSAIDs updated patient and family all above. verbalized understanding. 03/05/2017 stable Hb. still has malenic stool but that is likely from ulcerative bleed. will monitor closely. labs in AM 03/06/2017 Hemoglobin 8.7. Still has ongoing melena. Patient is on PPI twice a day. Patient is on liquid Carafate. We will recheck labs tomorrow. If she has a persistent drop in hemoglobin and then we will transfuse 1 unit PRBC. 03/07/2017 Patient is maintaining her hemoglobin/hematocrit Patient is on IV PPI. Noted that patient has a low magnesium but that is the reason: IV PPI We will continue to monitor her labs. Qualifiers: GI bleed type/associated pathology: melena Qualified Code(s): K92.1 - Melena (3) Urinary tract infection Current Visit: Yes Status: Acute Assessment and plan: Urine culture is positive for Escherichia coli. Patient is on presently ceftriaxone: Day 2 Will continue present antibiotics for now 03/03/2017 Ceftriaxone : Day 3 will continue Abx as she has occasional dysuria. 03/05/2017 will stop Abx ( completed Day 7) Qualifiers: Urinary tract infection type: acute cystitis Hematuria presence: without hematuria Qualified Code(s): N30.00 - Acute cystitis without hematuria (4) Hypomagnesemia Current Visit: Yes Status: Acute Assessment and plan: Persistent hypomagnesemia: I replaced magnesium 4 g. Will recheck magnesium tomorrow. 03/03/2017 awaiting for labs 03/05/2017 still has Mg of 1.2 will replace and will get labs in AM. (5) CAD (coronary artery disease) Current Visit: Yes Status: Chronic Assessment and plan: Patient is known to have coronary artery disease. This is the reason we are transfusing her in the event of gastrointestinal bleeding. 03/03/2017 has OR 16 years back and she has stent placed in 16 years back. Qualifiers: Coronary Disease-Associated Artery/Lesion type: [place] artery [place] vs. transplanted heart: [place] heart Associated angina: without angina Qualified Code(s): I25.10 - Atherosclerotic heart disease of [place] coronary artery without angina pectoris (6) Elevated troponin Current Visit: Yes Status: Acute Assessment and plan: Likely demand ischemia. Likely multifactorial Since now the patient is a GI bleed, we will take this and transfuse her 1 unit. (7) DVT prophylaxis Current Visit: Yes Status: Acute Assessment and plan: SCD - Subjective Interval history: Patient seen and examined. Chart reviewed. Patient is comfortably lying in bed. She does not have any complaint at this point. She denies abdominal pain, chest pain, nausea, vomiting, diarrhea or dizziness. 03/03/2017 seen and examined. daughter at bedside. has persistent left knee pain. occasional pain in chest area ( generalized) eating well and denies nausea and vomiting. 03/04/2017 seen and examined. Underwent EGD multiple ulcers in duodenal area. will follow GI recommendations. 03/05/2017 seen and examined. still has tio. likely residual blood from ulcerative bleed. today she sat down in chair from her bed. it was extremely painful transition but she did with great confidence 03/06/2017 Seen and examined. Melena has improved substantially as compared to yesterday . Patient did not move from bed to chair today. Yesterday she needed 3 people to transfer from bed to chair. Patient was in persistent pain today and that is the reason she could not get on the chair in spite of being on appropriate pain medication. 03/07/2017 Seen and examined. Patient does not have any more melena. the patient has a persistent diarrhea. Physical diarrhea pauses and tomorrow we will get C. difficile. She was able to sit up from the bed and able to go to chair. Patient required more than 3 people for transfer. 03/08/2017. Patient is a persistent diarrhea. C. difficile is positive. Informed patient at length about this new diagnosis. - Constitutional Vitals: Temp Pulse Resp BP Pulse Ox 98.1 F 95 18 121/68 95 03/08/17 07:38 03/08/17 07:38 03/08/17 07:38 03/08/17 07:38 03/08/17 07:38 General appearance: Present: A&O X 3, pleasant, no acute distress, answers questions appropriately - Head Head exam: Present: atraumatic, normocephalic - Eye Eye exam: Present: PERRL, conjuntiva pink, sclera anicteric Pupils: Present: PERRL - Neck Neck exam general surgery: Present: supple, trachea midline. Absent: lymphadenopathy - Respiratory Respiratory exam: Present: CTAB. Absent: accessory muscle use, rales, rhonchi, wheezes - Cardiovascular Cardiovascular exam: Present: RRR, +S1, +S2. Absent: diastolic murmur, gallop, rubs, systolic murmur - GI/Abdominal GI/Abdominal exam: Present: normal bowel sounds, soft, no peritoneal signs. Absent: distended, tenderness - Extremities Exam Extremities exam: Present: warm, radial pulses palpable and symetrical. Absent : calf tenderness, cyanotic, pedal edema - Neurological Exam Neurological exam: Present: CN II-XII intact, oriented X3, no focal deficits. Absent: pronater drift, facial droop, speech deficit - Skin Skin exam: Present: dry, intact Internal Medicine: Result - Labs CBC & Chem 7: 03/09/17 09:25 03/09/17 09:25 - ABG Interpretation ABG results: ABG ABG pH 7.51 pH Units (7.32-7.45) H 02/28/17 04:45 ABG pCO2 30 mmHg (35-45) L 02/28/17 04:45 ABG pO2 111 mmHg (85-104) H 02/28/17 04:45 ABG O2 Saturation 99 % (95-98) H 02/28/17 04:45 - VTE Documentation of Mechanical Device: Intermittent pneumatic compression device Consult Discharge Plan - Plan Referrals: Leno Dickson MD [Partnered Physician] - 03/11/17 1:30 pm Moreno Lara Jr, MD [Primary Care Provider] -
[2017-03-08 09:11] LABS: Alanine Aminotransferase 116 Units/L (0-55); Albumin 1.7 g/dL (3.5-5.0); Albumin/Globulin Ratio 0.4 (1.1-2.2); Alkaline Phosphatase 154 Units/L (38-126); Aspartate Amino Transferase 83 Units/L (5-34); BUN/Creatinine Ratio 14 (6-26); Bilirubin,Total 0.5 mg/dL (0.2-1.2); Blood Urea Nitrogen 7 mg/dL (7-20); Calcium 9.4 mg/dL (8.6-10.8); Carbon Dioxide 31 mEq/L (19-29); Chloride 97 mEq/L (98-109); Globulin 3.9 g/dL (2.4-3.5); Glucose 95 mg/dL (70-99); Magnesium 1.3 mg/dL (1.6-2.6); Osmolality,Calculated 278 (280-300); Potassium 4.5 mEq/L (3.5-4.5); Sodium 135 mEq/L (136-145); Total Protein 5.6 g/dL (6.0-8.3); eGFR For African Americans > 60 (> 60); eGFR For Non-African Americans > 60 (> 60)
[2017-03-08] MEDS: *HR* Morphine 2 MG/ML SYRINGE IVP PRN ×2 (10:15→17:16)
[2017-03-08] MEDS: *HR* OxyCODONE/APAP 7.5/325 TABLET PO PRN ×3 (16:02→22:35)
[2017-03-09] MEDS: MetroNIDAZOLE 500 MG/100 ML 500 MG/100 ML BAG IVPB SCH ×3 (00:08→16:41)
[2017-03-09] MEDS: *HR* LORazepam 0.5 MG TABLET PO PRN (00:08)
[2017-03-09] MEDS: *HR* OxyCODONE/APAP 7.5/325 TABLET PO PRN ×5 (03:22→20:39)
[2017-03-09] MEDS: Pantoprazole 40 MG VIAL IVP SCH ×2 (06:11→16:41)
[2017-03-09] MEDS: Metoprolol XL (24 HR) Succ 25 MG TAB.ER.24H PO SCH (08:07)
[2017-03-09] MEDS: Magnesium Oxide 400 MG TABLET PO SCH ×2 (08:07→20:39)
[2017-03-09] MEDS: Sucralfate 1 GM TABLET PO SCH ×3 (08:07→20:39)
[2017-03-09] MEDS ORDERED: Magnesium Sulfate 2 GM in D5% in Water 100 ML IVPB ONE (08:48)
--- NOTE | 2017-03-09 08:49 | Internal Med Progress Note ---
Date of Encounter: 03/09/17 Time of Encounter: 08:49 - Assessment and plan (1) C. difficile diarrhea Current Visit: Yes Status: Acute Assessment and plan: 03/08/2017 Patient has a C. difficile diarrhea. More than 4 bowel movements noted today. No yahir blood/no melena Plan: -We will continue IV fluid -IV metronidazole 500 mg every 8 hourly -Side effects explained to the patient. 03/09/2017 IV Metronidazole 500 mg every 8 hours: Day 2 Her frequency of diarrhea has improved significantly. Hemoglobin and hematocrit is pretty stable. Electrolytes are within normal limits. We will recheck labs tomorrow morning. Recommended patient to increase water intake. (2) GI bleed Current Visit: Yes Status: Acute Assessment and plan: Today's my first encounter with this patient. We summarize brief hospital stay so far. Brief history: 86/female PCP: Dr. Lara Inpatient consults: Pulmonology/critical care:S/P V. fib arrest. CODE BLUE, successful intubation/ ventilation Cardiology: Elevated troponin/V. fib arrest. Gastroenterology: GI bleed. Patient was referred from her orthopedic surgeon ( [place]) who has scheduled her for knee replacement. In preop evaluation it was noted that patient is a possibility of a urinary tract infection. This was the reason she was referred to the hospital for further evaluation. Patient was hospitalized. Patient had a V. fib arrest likely secondary to hypomagnesemia. CODE BLUE was initiated. Patient was successfully intubated/when directed. Cardiology was consulted for V. fib arrest. Cardiology recommended low-dose beta cintia. Patient was successfully extubated and transferred to [address] [place] [address] for further evaluation. I examined this patient this morning. Patient had a large bowel movement which was dark, tarry in nature. Stool occult blood was positive. Etiology for GI bleed: Multifactorial. 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 Plan: -Discontinue Heparin ( DVT prophylaxis). - SCD - Will monitor Hb. - Transfuse 1 unit PRBC as she has history of CAD with recent positive troponin. - IV PPI 40 mg [id number] - NPO from midnight. - Gastroentrology consulted and will get EGD tomorrow. - plan explained to patient and her daughter. -Patient and her daughter verbalized understanding and they do not have any questions at this point. 03/03/2017 Transfused 1 unit PRBC yesterday and Holding Hb at 9.4 ( yesterday 8.7) Still has black, Tarry stools. on IV PPI 40 mg BID. Plan continue PPI EGD tomorrow NPO from midnight. sheis also complaining of persistent pain in left knee. will get xray and ortho opinion. 03/04/2017 Patient underwent EGD One non bleeding DU GI recommends: PPI BID for 2 months Will give liquid carafate solution No NSAIDs updated patient and family all above. verbalized understanding. 03/05/2017 stable Hb. still has malenic stool but that is likely from ulcerative bleed. will monitor closely. labs in AM 03/06/2017 Hemoglobin 8.7. Still has ongoing melena. Patient is on PPI twice a day. Patient is on liquid Carafate. We will recheck labs tomorrow. If she has a persistent drop in hemoglobin and then we will transfuse 1 unit PRBC. 03/07/2017 Patient is maintaining her hemoglobin/hematocrit Patient is on IV PPI. Noted that patient has a low magnesium but that is the reason: IV PPI We will continue to monitor her labs. Qualifiers: GI bleed type/associated pathology: melena Qualified Code(s): K92.1 - Melena (3) Urinary tract infection Current Visit: Yes Status: Acute Assessment and plan: Urine culture is positive for Escherichia coli. Patient is on presently ceftriaxone: Day 2 Will continue present antibiotics for now 03/03/2017 Ceftriaxone : Day 3 will continue Abx as she has occasional dysuria. 03/05/2017 will stop Abx ( completed Day 7) Qualifiers: Urinary tract infection type: acute cystitis Hematuria presence: without hematuria Qualified Code(s): N30.00 - Acute cystitis without hematuria (4) Hypomagnesemia Current Visit: Yes Status: Acute Assessment and plan: Persistent hypomagnesemia: I replaced magnesium 4 g. Will recheck magnesium tomorrow. 03/03/2017 awaiting for labs 03/05/2017 still has Mg of 1.2 will replace and will get labs in AM. (5) CAD (coronary artery disease) Current Visit: Yes Status: Chronic Assessment and plan: Patient is known to have coronary artery disease. This is the reason we are transfusing her in the event of gastrointestinal bleeding. 03/03/2017 has [place] 16 years back and she has stent placed in 16 years back. Qualifiers: Coronary Disease-Associated Artery/Lesion type: [place] artery [place] vs. transplanted heart: [place] heart Associated angina: without angina Qualified Code(s): I25.10 - Atherosclerotic heart disease of [place] coronary artery without angina pectoris (6) Elevated troponin Current Visit: Yes Status: Acute Assessment and plan: Likely demand ischemia. Likely multifactorial Since now the patient is a GI bleed, we will take this and transfuse her 1 unit. (7) DVT prophylaxis Current Visit: Yes Status: Acute Assessment and plan: SCD - Subjective Interval history: Patient seen and examined. Chart reviewed. Patient is comfortably lying in bed. She does not have any complaint at this point. She denies abdominal pain, chest pain, nausea, vomiting, diarrhea or dizziness. 03/03/2017 seen and examined. daughter at bedside. has persistent left knee pain. occasional pain in chest area ( generalized) eating well and denies nausea and vomiting. 03/04/2017 seen and examined. Underwent EGD multiple ulcers in duodenal area. will follow GI recommendations. 03/05/2017 seen and examined. still has tio. likely residual blood from ulcerative bleed. today she sat down in chair from her bed. it was extremely painful transition but she did with great confidence 03/06/2017 Seen and examined. Melena has improved substantially as compared to yesterday . Patient did not move from bed to chair today. Yesterday she needed 3 people to transfer from bed to chair. Patient was in persistent pain today and that is the reason she could not get on the chair in spite of being on appropriate pain medication. 03/07/2017 Seen and examined. Patient does not have any more melena. the patient has a persistent diarrhea. Physical diarrhea pauses and tomorrow we will get C. difficile. She was able to sit up from the bed and able to go to chair. Patient required more than 3 people for transfer. 03/08/2017. Patient is a persistent diarrhea. C. difficile is positive. Informed patient at length about this new diagnosis. 03/09/2017 Patient seen and examined. Chart reviewed. Patient still has ongoing diarrhea. The frequency of diarrhea has improved. Noted that patient has a excellent water intake. - Constitutional Vitals: Temp Pulse Resp BP Pulse Ox 98.2 F 94 16 124/80 95 03/09/17 07:39 03/09/17 07:39 03/09/17 07:39 03/09/17 07:39 03/09/17 07:39 General appearance: Present: A&O X 3, pleasant, no acute distress, answers questions appropriately - Head Head exam: Present: atraumatic, normocephalic - Eye Eye exam: Present: PERRL, conjuntiva pink, sclera anicteric Pupils: Present: PERRL - Neck Neck exam general surgery: Present: supple, trachea midline. Absent: lymphadenopathy - Respiratory Respiratory exam: Present: CTAB. Absent: accessory muscle use, rales, rhonchi, wheezes - Cardiovascular Cardiovascular exam: Present: RRR, +S1, +S2. Absent: diastolic murmur, gallop, rubs, systolic murmur - GI/Abdominal GI/Abdominal exam: Present: normal bowel sounds, soft, no peritoneal signs. Absent: distended, tenderness - Extremities Exam Extremities exam: Present: warm, radial pulses palpable and symetrical. Absent : calf tenderness, cyanotic, pedal edema - Neurological Exam Neurological exam: Present: CN II-XII intact, oriented X3, no focal deficits. Absent: pronater drift, facial droop, speech deficit - Skin Skin exam: Present: dry, intact Internal Medicine: Result - Labs CBC & Chem 7: 03/09/17 09:25 03/09/17 09:25 Labs: Short CBC 03/08/17 Range/Units 08:40 WBC 10.4 (4.3-11.1) K/mcL Hgb 9.1 L (11.5-15.4) g/dL Hct 28.6 L (35.3-44.9) % Plt Count 357 (140-400) K/mcL Neutrophils # 8.2 (1.6-8.9) K/mcL BMP 03/08/17 08:40 Sodium 135 L Potassium 4.5 Chloride 97 L Carbon Dioxide 31 H BUN 7 Creatinine 0.50 L Glucose 95 Calcium 9.4 Liver Function 03/08/17 Range/Units 08:40 Total Bilirubin 0.5 (0.2-1.2) mg/dL AST 83 H (5-34) Units/L ALT 116 H (0-55) Units/L Alkaline Phosphatase 154 H (38-126) Units/L Albumin 1.7 L (3.5-5.0) g/dL - ABG Interpretation ABG results: ABG ABG pH 7.51 pH Units (7.32-7.45) H 02/28/17 04:45 ABG pCO2 30 mmHg (35-45) L 02/28/17 04:45 ABG pO2 111 mmHg (85-104) H 02/28/17 04:45 ABG O2 Saturation 99 % (95-98) H 02/28/17 04:45 - VTE Documentation of Mechanical Device: Intermittent pneumatic compression device Consult Discharge Plan - Plan Referrals: Leno Dickson MD [Partnered Physician] - 03/11/17 1:30 pm Moreno Lara Jr, MD [Primary Care Provider] -
[2017-03-09 09:33] LABS: Basophils % 0.2 %; Eosinophils # 0.1 K/mcL (0.0-0.6); Eosinophils % 0.6 %; Hematocrit 28.1 % (35.3-44.9); Hemoglobin 8.8 g/dL (11.5-15.4); Immature Granulocytes % 0.8 % (0-4); Lymphocytes # 0.8 K/mcL (0.6-4.6); Lymphocytes % 7.8 %; Mean Corpuscular HGB Conc 31.3 g/dL (31.6-35.5); Mean Corpuscular Hemoglobin 29.8 pg (28.0-33.3); Mean Corpuscular Volume 95.3 fL (83.0-100.0); Monocytes # 1.1 K/mcL (0.0-1.3); Monocytes % 10.3 %; Neutrophils # 8.5 K/mcL (1.6-8.9); Platelet Count 299 K/mcL (140-400); Red Blood Count 2.95 M/mcL (3.82-4.97); Red Cell Distribution Width 13.4 % (11.5-14.5); Segmented Neutrophils % 80.3 %
[2017-03-09 09:48] LABS: Alanine Aminotransferase 122 Units/L (0-55); Albumin/Globulin Ratio 0.5 (1.1-2.2); Alkaline Phosphatase 165 Units/L (38-126); Aspartate Amino Transferase 67 Units/L (5-34); BUN/Creatinine Ratio 12 (6-26); Bilirubin,Total 0.5 mg/dL (0.2-1.2); Blood Urea Nitrogen 7 mg/dL (7-20); Calcium 8.9 mg/dL (8.6-10.8); Carbon Dioxide 32 mEq/L (19-29); Chloride 97 mEq/L (98-109); Globulin 3.7 g/dL (2.4-3.5); Glucose 183 mg/dL (70-99); Osmolality,Calculated 281 (280-300); Sodium 134 mEq/L (136-145); Total Protein 5.5 g/dL (6.0-8.3); eGFR For African Americans > 60 (> 60); eGFR For Non-African Americans > 60 (> 60)
[2017-03-09 09:51] LABS: Albumin 1.8 g/dL (3.5-5.0)
[2017-03-09] MEDS: *HR* Morphine 2 MG/ML SYRINGE IVP PRN ×3 (13:54→22:53)
[2017-03-10] MEDS: MetroNIDAZOLE 500 MG/100 ML 500 MG/100 ML BAG IVPB SCH ×4 (01:01→23:26)
[2017-03-10] MEDS: *HR* OxyCODONE/APAP 7.5/325 TABLET PO PRN ×5 (01:01→18:49)
[2017-03-10] MEDS: *HR* LORazepam 0.5 MG TABLET PO PRN (01:01)
[2017-03-10] MEDS: Pantoprazole 40 MG VIAL IVP SCH ×2 (04:58→17:27)
[2017-03-10 05:30] LABS: Basophils % 0.4 %; Eosinophils # 0.1 K/mcL (0.0-0.6); Eosinophils % 1.3 %; Hematocrit 28.7 % (35.3-44.9); Hemoglobin 8.9 g/dL (11.5-15.4); Lymphocytes # 1.1 K/mcL (0.6-4.6); Lymphocytes % 14.5 %; Mean Corpuscular Hemoglobin 29.4 pg (28.0-33.3); Mean Corpuscular Volume 94.7 fL (83.0-100.0); Mean Platelet Volume 8.9 fL (9.4-12.4); Monocytes % 13.4 %; Neutrophils # 5.4 K/mcL (1.6-8.9); Platelet Count 295 K/mcL (140-400); Red Blood Count 3.03 M/mcL (3.82-4.97); Red Cell Distribution Width 13.4 % (11.5-14.5); Segmented Neutrophils % 69.4 %
[2017-03-10 05:46] LABS: Alanine Aminotransferase 106 Units/L (0-55); Albumin 1.8 g/dL (3.5-5.0); Albumin/Globulin Ratio 0.5 (1.1-2.2); Alkaline Phosphatase 175 Units/L (38-126); Aspartate Amino Transferase 48 Units/L (5-34); BUN/Creatinine Ratio 13 (6-26); Bilirubin,Total 0.4 mg/dL (0.2-1.2); Blood Urea Nitrogen 7 mg/dL (7-20); Calcium 9.5 mg/dL (8.6-10.8); Carbon Dioxide 32 mEq/L (19-29); Chloride 97 mEq/L (98-109); Globulin 3.7 g/dL (2.4-3.5); Glucose 87 mg/dL (70-99); Magnesium 1.5 mg/dL (1.6-2.6); Osmolality,Calculated 275 (280-300); Potassium 4.2 mEq/L (3.5-4.5); Sodium 134 mEq/L (136-145); Total Protein 5.5 g/dL (6.0-8.3); eGFR For African Americans > 60 (> 60); eGFR For Non-African Americans > 60 (> 60)
[2017-03-10 07:46] LABS: Urine Magnesium mg/dL 12.7 mg/dL
[2017-03-10] MEDS: Metoprolol XL (24 HR) Succ 25 MG TAB.ER.24H PO SCH (08:12)
[2017-03-10] MEDS: Sucralfate 1 GM TABLET PO SCH ×3 (08:12→23:25)
[2017-03-10] MEDS: Magnesium Oxide 400 MG TABLET PO SCH ×2 (08:12→23:25)
[2017-03-10] MEDS: *HR* Morphine 2 MG/ML SYRINGE IVP PRN ×3 (09:41→23:37)
--- NOTE | 2017-03-10 17:31 | Internal Med Progress Note ---
Date of Encounter: 03/10/17 Time of Encounter: 17:27 - Assessment and plan (1) C. difficile diarrhea Current Visit: Yes Status: Acute Assessment and plan: 03/08/2017 Patient has a C. difficile diarrhea. More than 4 bowel movements noted today. No yahir blood/no melena Plan: -We will continue IV fluid -IV metronidazole 500 mg every 8 hourly -Side effects explained to the patient. 03/09/2017 IV Metronidazole 500 mg every 8 hours: Day 2 Her frequency of diarrhea has improved significantly. Hemoglobin and hematocrit is pretty stable. Electrolytes are within normal limits. We will recheck labs tomorrow morning. Recommended patient to increase water intake. 03/10/2017 IV metronidazole 500 mg every 8 hours: day 3 Frequency of diarrhea improved significantly. Hemoglobin and hematocrit stable. Electrolytes within acceptable range. (2) Hypomagnesemia Current Visit: Yes Status: Acute Assessment and plan: Persistent hypomagnesemia: I replaced magnesium 4 g. Will recheck magnesium tomorrow. 03/03/2017 awaiting for labs 03/05/2017 still has Mg of 1.2 will replace and will get labs in AM. 03/10/2017 Persistently low magnesium. Likely secondary to chronic diarrhea/on PPI/ poor oral intake I have ordered a spot urinary magnesium for her. Urinary spot magnesium was raised. I have ordered 24-hour urinary magnesium. If this is elevated then we will need to get nephrology evaluation (3) GI bleed Current Visit: Yes Status: Acute Assessment and plan: Today's my first encounter with this patient. We summarize brief hospital stay so far. Brief history: 86/female PCP: Dr. Lara Inpatient consults: Pulmonology/critical care:S/P V. fib arrest. CODE BLUE, successful intubation/ ventilation Cardiology: Elevated troponin/V. fib arrest. Gastroenterology: GI bleed. Patient was referred from her orthopedic surgeon ( [place]) who has scheduled her for knee replacement. In preop evaluation it was noted that patient is a possibility of a urinary tract infection. This was the reason she was referred to the hospital for further evaluation. Patient was hospitalized. Patient had a V. fib arrest likely secondary to hypomagnesemia. CODE BLUE was initiated. Patient was successfully intubated/when directed. Cardiology was consulted for V. fib arrest. Cardiology recommended low-dose beta cintia. Patient was successfully extubated and transferred to [address] [place] [address] for further evaluation. I examined this patient this morning. Patient had a large bowel movement which was dark, tarry in nature. Stool occult blood was positive. Etiology for GI bleed: Multifactorial. 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 Plan: -Discontinue Heparin ( DVT prophylaxis). - SCD - Will monitor Hb. - Transfuse 1 unit PRBC as she has history of CAD with recent positive troponin. - IV PPI 40 mg [id number] - NPO from midnight. - Gastroentrology consulted and will get EGD tomorrow. - plan explained to patient and her daughter. -Patient and her daughter verbalized understanding and they do not have any questions at this point. 03/03/2017 Transfused 1 unit PRBC yesterday and Holding Hb at 9.4 ( yesterday 8.7) Still has black, Tarry stools. on IV PPI 40 mg BID. Plan continue PPI EGD tomorrow NPO from midnight. sheis also complaining of persistent pain in left knee. will get xray and ortho opinion. 03/04/2017 Patient underwent EGD One non bleeding DU GI recommends: PPI BID for 2 months Will give liquid carafate solution No NSAIDs updated patient and family all above. verbalized understanding. 03/05/2017 stable Hb. still has malenic stool but that is likely from ulcerative bleed. will monitor closely. labs in AM 03/06/2017 Hemoglobin 8.7. Still has ongoing melena. Patient is on PPI twice a day. Patient is on liquid Carafate. We will recheck labs tomorrow. If she has a persistent drop in hemoglobin and then we will transfuse 1 unit PRBC. 03/07/2017 Patient is maintaining her hemoglobin/hematocrit Patient is on IV PPI. Noted that patient has a low magnesium but that is the reason: IV PPI We will continue to monitor her labs. Qualifiers: GI bleed type/associated pathology: melena Qualified Code(s): K92.1 - Melena (4) Urinary tract infection Current Visit: Yes Status: Acute Assessment and plan: Urine culture is positive for Escherichia coli. Patient is on presently ceftriaxone: Day 2 Will continue present antibiotics for now 03/03/2017 Ceftriaxone : Day 3 will continue Abx as she has occasional dysuria. 03/05/2017 will stop Abx ( completed Day 7) Qualifiers: Urinary tract infection type: acute cystitis Hematuria presence: without hematuria Qualified Code(s): N30.00 - Acute cystitis without hematuria (5) CAD (coronary artery disease) Current Visit: Yes Status: Chronic Qualifiers: Coronary Disease-Associated Artery/Lesion type: [place] artery [place] vs. transplanted heart: [place] heart Associated angina: without angina Qualified Code(s): I25.10 - Atherosclerotic heart disease of [place] coronary artery without angina pectoris (6) Elevated troponin Current Visit: Yes Status: Acute (7) DVT prophylaxis Current Visit: Yes Status: Acute - Subjective Interval history: Patient seen and examined. Chart reviewed. Patient is comfortably lying in bed. She does not have any complaint at this point. She denies abdominal pain, chest pain, nausea, vomiting, diarrhea or dizziness. 03/03/2017 seen and examined. daughter at bedside. has persistent left knee pain. occasional pain in chest area ( generalized) eating well and denies nausea and vomiting. 03/04/2017 seen and examined. Underwent EGD multiple ulcers in duodenal area. will follow GI recommendations. 03/05/2017 seen and examined. still has tio. likely residual blood from ulcerative bleed. today she sat down in chair from her bed. it was extremely painful transition but she did with great confidence 03/06/2017 Seen and examined. Melena has improved substantially as compared to yesterday . Patient did not move from bed to chair today. Yesterday she needed 3 people to transfer from bed to chair. Patient was in persistent pain today and that is the reason she could not get on the chair in spite of being on appropriate pain medication. 03/07/2017 Seen and examined. Patient does not have any more melena. the patient has a persistent diarrhea. Physical diarrhea pauses and tomorrow we will get C. difficile. She was able to sit up from the bed and able to go to chair. Patient required more than 3 people for transfer. 03/08/2017. Patient is a persistent diarrhea. C. difficile is positive. Informed patient at length about this new diagnosis. 03/09/2017 Patient seen and examined. Chart reviewed. Patient still has ongoing diarrhea. The frequency of diarrhea has improved. Noted that patient has a excellent water intake. 03/10/2017 Patient seen and examined. Chart is reviewed. Patient does have ongoing diarrhea. Today she had a 3 episodes of diarrhea. The stool is not yet formed. - Constitutional Vitals: Temp Pulse Resp BP Pulse Ox 98.1 F 92 18 112/67 96 03/10/17 16:07 03/10/17 16:07 03/10/17 16:07 03/10/17 16:07 03/10/17 16:07 General appearance: Present: A&O X 3, pleasant, no acute distress, answers questions appropriately - Head Head exam: Present: atraumatic, normocephalic - Eye Eye exam: Present: PERRL, conjuntiva pink, sclera anicteric Pupils: Present: PERRL - Neck Neck exam general surgery: Present: supple, trachea midline. Absent: lymphadenopathy - Respiratory Respiratory exam: Present: CTAB. Absent: accessory muscle use, rales, rhonchi, wheezes - Cardiovascular Cardiovascular exam: Present: RRR, +S1, +S2. Absent: diastolic murmur, gallop, rubs, systolic murmur - GI/Abdominal GI/Abdominal exam: Present: normal bowel sounds, soft, no peritoneal signs. Absent: distended, tenderness - Extremities Exam Extremities exam: Present: warm, radial pulses palpable and symetrical. Absent : calf tenderness, cyanotic, pedal edema - Neurological Exam Neurological exam: Present: CN II-XII intact, oriented X3, no focal deficits. Absent: pronater drift, facial droop, speech deficit - Skin Skin exam: Present: dry, intact Internal Medicine: Result - Labs CBC & Chem 7: 03/10/17 05:00 03/10/17 05:00 Labs: Short CBC 03/10/17 Range/Units 05:00 WBC 7.8 (4.3-11.1) K/mcL Hgb 8.9 L (11.5-15.4) g/dL Hct 28.7 L (35.3-44.9) % Plt Count 295 (140-400) K/mcL Neutrophils # 5.4 (1.6-8.9) K/mcL BMP 03/10/17 05:00 Sodium 134 L Potassium 4.2 Chloride 97 L Carbon Dioxide 32 H BUN 7 Creatinine 0.55 L Glucose 87 Calcium 9.5 Liver Function 03/10/17 Range/Units 05:00 Total Bilirubin 0.4 (0.2-1.2) mg/dL AST 48 H (5-34) Units/L ALT 106 H (0-55) Units/L Alkaline Phosphatase 175 H (38-126) Units/L Albumin 1.8 L (3.5-5.0) g/dL - ABG Interpretation ABG results: ABG ABG pH 7.51 pH Units (7.32-7.45) H 02/28/17 04:45 ABG pCO2 30 mmHg (35-45) L 02/28/17 04:45 ABG pO2 111 mmHg (85-104) H 02/28/17 04:45 ABG O2 Saturation 99 % (95-98) H 02/28/17 04:45 - VTE Documentation of Mechanical Device: Graduated compression elastic hosiery Consult Discharge Plan - Plan Referrals: Leno Dickson MD [Partnered Physician] - 03/11/17 1:30 pm Moreno Lara Jr, MD [Primary Care Provider] -
[2017-03-11] MEDS: *HR* OxyCODONE/APAP 7.5/325 TABLET PO PRN ×6 (00:54→21:54)
[2017-03-11] MEDS: Pantoprazole 40 MG VIAL IVP SCH (05:01)
[2017-03-11 05:08] LABS: Alanine Aminotransferase 75 Units/L (0-55); Albumin/Globulin Ratio 0.5 (1.1-2.2); Alkaline Phosphatase 165 Units/L (38-126); Aspartate Amino Transferase 24 Units/L (5-34); BUN/Creatinine Ratio 12 (6-26); Bilirubin,Total 0.5 mg/dL (0.2-1.2); Blood Urea Nitrogen 6 mg/dL (7-20); Calcium 9.3 mg/dL (8.6-10.8); Carbon Dioxide 32 mEq/L (19-29); Chloride 97 mEq/L (98-109); Globulin 3.8 g/dL (2.4-3.5); Glucose 101 mg/dL (70-99); Magnesium 1.4 mg/dL (1.6-2.6); Osmolality,Calculated 278 (280-300); Potassium 4.1 mEq/L (3.5-4.5); Sodium 135 mEq/L (136-145); Total Protein 5.8 g/dL (6.0-8.3); eGFR For African Americans > 60 (> 60); eGFR For Non-African Americans > 60 (> 60)
[2017-03-11 05:26] LABS: Basophils % 0.3 %; Eosinophils % 0.9 %; Hematocrit 28.4 % (35.3-44.9); Immature Granulocytes % 0.7 % (0-4); Lymphocytes % 17.5 %; Mean Corpuscular HGB Conc 31.7 g/dL (31.6-35.5); Mean Corpuscular Hemoglobin 30.1 pg (28.0-33.3); Mean Platelet Volume 9.4 fL (9.4-12.4); Monocytes % 13.1 %; Platelet Count 294 K/mcL (140-400); Red Blood Count 2.99 M/mcL (3.82-4.97); Red Cell Distribution Width 13.5 % (11.5-14.5); Segmented Neutrophils % 67.5 %
[2017-03-11 05:27] LABS: Eosinophils # 0.1 K/mcL (0.0-0.6); Lymphocytes # 1.3 K/mcL (0.6-4.6); Neutrophils # 5.1 K/mcL (1.6-8.9)
[2017-03-11] MEDS: Sucralfate 1 GM TABLET PO SCH ×3 (08:08→21:54)
[2017-03-11] MEDS: Metoprolol XL (24 HR) Succ 25 MG TAB.ER.24H PO SCH (08:08)
[2017-03-11] MEDS: Magnesium Oxide 400 MG TABLET PO SCH ×2 (08:08→21:53)
[2017-03-11] MEDS: MetroNIDAZOLE 500 MG/100 ML 500 MG/100 ML BAG IVPB SCH ×3 (08:10→23:48)
[2017-03-11] MEDS ORDERED: Magnesium Sulfate 2 GM in D5% in Water 100 ML IVPB ONE (13:32)
[2017-03-11] MEDS: *HR* Morphine 2 MG/ML SYRINGE IVP PRN ×2 (14:43→23:51)
--- NOTE | 2017-03-11 17:19 | Internal Med Progress Note ---
Date of Encounter: 03/11/17 Time of Encounter: 08:30 - Assessment and plan (1) C. difficile diarrhea Current Visit: Yes Status: Acute Assessment and plan: Seems to be doing somewhat better on current treatment. Will need 10-14 days of Flagyl total. Will continue supportive care at this time. (2) Anemia Current Visit: Yes Status: Acute Assessment and plan: Hemoglobin remains stable at this time. Continue to monitor. Qualifiers: Anemia type: other cause Other causes of anemia: acute posthemorrhagic Qualified Code(s): D62 - Acute posthemorrhagic anemia (3) Hypomagnesemia Current Visit: Yes Status: Acute Assessment and plan: Hypomagnesemia persists. 24 h urine study pending. Continue PO and IV supplementation. Pt high risk for cardiac complications. (4) Ventricular fibrillation Current Visit: Yes Status: Resolved Assessment and plan: Continue on youth nutritional monitor. (5) CAD (coronary artery disease) Current Visit: Yes Status: Chronic Assessment and plan: Currently asymptomatic. Qualifiers: Coronary Disease-Associated Artery/Lesion type: [place] artery [place] vs. transplanted heart: [place] heart Associated angina: without angina Qualified Code(s): I25.10 - Atherosclerotic heart disease of [place] coronary artery without angina pectoris (6) Arthritis of left knee Current Visit: Yes Status: Chronic Assessment and plan: Pain control - Subjective Interval history: Ms. Bustos is currently admitted for acute GI bleed and v fib arrest presumed due to hypomagnesemia. She currently has active C diff. She remains high risk due to persistent hypomagnesemia and risk for cardiac compromise. Ms. Bustos is having continued knee pain. Stools seem to be less diarrhea today. On PO magnesium. No CP or SOB. No cough. No abd pain. Wants to have everything done here at this time. - Constitutional Vitals: Temp Pulse Resp BP Pulse Ox 98.5 F 95 16 103/60 96 03/11/17 16:18 03/11/17 16:18 03/11/17 16:18 03/11/17 16:18 03/11/17 16:18 General appearance: Present: A&O X 3, pleasant, answers questions appropriately - Head Head exam: Present: normocephalic - Eye Eye exam: Present: EOMI, conjuntiva pink - ENT ENT exam: Present: mucous membranes moist - Respiratory Respiratory exam: Present: CTAB - Cardiovascular Cardiovascular exam: Present: RRR. Absent: tachycardia - GI/Abdominal GI/Abdominal exam: Present: soft. Absent: mass, tenderness - Extremities Exam Extremities exam: Present: tenderness, warm - Neurological Exam Neurological exam: Present: alert, oriented X3 - Psychiatric Psychiatric exam: Present: normal affect, normal mood - Skin Skin exam: Present: dry, warm. Absent: rash Internal Medicine: Result - Labs CBC & Chem 7: 03/11/17 04:40 03/11/17 04:40 Labs: Short CBC 03/11/17 Range/Units 04:40 WBC 7.5 (4.3-11.1) K/mcL Hgb 9.0 L (11.5-15.4) g/dL Hct 28.4 L (35.3-44.9) % Plt Count 294 (140-400) K/mcL Neutrophils # 5.1 (1.6-8.9) K/mcL BMP 03/11/17 04:40 Sodium 135 L Potassium 4.1 Chloride 97 L Carbon Dioxide 32 H BUN 6 L Creatinine 0.52 L Glucose 101 H Calcium 9.3 Liver Function 03/11/17 Range/Units 04:40 Total Bilirubin 0.5 (0.2-1.2) mg/dL AST 24 (5-34) Units/L ALT 75 H (0-55) Units/L Alkaline Phosphatase 165 H (38-126) Units/L Albumin 2.0 L (3.5-5.0) g/dL - ABG Interpretation ABG results: ABG ABG pH 7.51 pH Units (7.32-7.45) H 02/28/17 04:45 ABG pCO2 30 mmHg (35-45) L 02/28/17 04:45 ABG pO2 111 mmHg (85-104) H 02/28/17 04:45 ABG O2 Saturation 99 % (95-98) H 02/28/17 04:45 - VTE Documentation of Mechanical Device: Intermittent pneumatic compression device Consult Discharge Plan - Plan Referrals: Leno Dickson MD [Partnered Physician] - 03/11/17 1:30 pm Moreno Lara Jr, MD [Primary Care Provider] - 03/19/17 10:00 am
[2017-03-12] MEDS: *HR* OxyCODONE/APAP 7.5/325 TABLET PO PRN ×5 (02:22→23:52)
[2017-03-12 07:52] LABS: Basophils % 0.6 %; Eosinophils # 0.1 K/mcL (0.0-0.6); Eosinophils % 0.9 %; Hematocrit 29.2 % (35.3-44.9); Hemoglobin 9.1 g/dL (11.5-15.4); Immature Granulocytes % 0.9 % (0-4); Lymphocytes % 18.5 %; Mean Corpuscular HGB Conc 31.2 g/dL (31.6-35.5); Mean Corpuscular Hemoglobin 29.4 pg (28.0-33.3); Mean Corpuscular Volume 94.2 fL (83.0-100.0); Monocytes # 0.8 K/mcL (0.0-1.3); Monocytes % 13.8 %; Neutrophils # 3.5 K/mcL (1.6-8.9); Platelet Count 290 K/mcL (140-400); Red Cell Distribution Width 13.6 % (11.5-14.5); Segmented Neutrophils % 65.3 %
[2017-03-12 08:02] LABS: Alanine Aminotransferase 50 Units/L (0-55); Albumin/Globulin Ratio 0.5 (1.1-2.2); Alkaline Phosphatase 157 Units/L (38-126); Aspartate Amino Transferase 22 Units/L (5-34); BUN/Creatinine Ratio 12 (6-26); Bilirubin,Total 0.4 mg/dL (0.2-1.2); Blood Urea Nitrogen 7 mg/dL (7-20); Calcium 9.3 mg/dL (8.6-10.8); Carbon Dioxide 30 mEq/L (19-29); Chloride 101 mEq/L (98-109); Globulin 3.7 g/dL (2.4-3.5); Glucose 88 mg/dL (70-99); Magnesium 1.5 mg/dL (1.6-2.6); Osmolality,Calculated 281 (280-300); Potassium 4.2 mEq/L (3.5-4.5); Sodium 137 mEq/L (136-145); Total Protein 5.5 g/dL (6.0-8.3); eGFR For African Americans > 60 (> 60); eGFR For Non-African Americans > 60 (> 60)
[2017-03-12 08:04] LABS: Albumin 1.8 g/dL (3.5-5.0)
[2017-03-12] MEDS: *HR* Morphine 2 MG/ML SYRINGE IVP PRN (09:45)
[2017-03-12] MEDS: Sucralfate 1 GM TABLET PO SCH ×3 (09:47→19:59)
[2017-03-12] MEDS: MetroNIDAZOLE 500 MG/100 ML 500 MG/100 ML BAG IVPB SCH ×3 (09:47→23:52)
[2017-03-12] MEDS: Metoprolol XL (24 HR) Succ 25 MG TAB.ER.24H PO SCH (09:47)
[2017-03-12] MEDS: Magnesium Oxide 400 MG TABLET PO SCH ×2 (09:47→19:59)
[2017-03-12] MEDS ORDERED: Magnesium Sulfate 2 GM in D5% in Water 100 ML IV ONE (09:49)
--- NOTE | 2017-03-12 14:42 | Internal Med Progress Note ---
Date of Encounter: 03/12/17 Time of Encounter: 09:00 - Assessment and plan (1) C. difficile diarrhea Current Visit: Yes Status: Acute Assessment and plan: Currently on IV Flagyl. Stool seems to be improving over time. Appetite is poor. Continue current management overnight. (2) Anemia Current Visit: Yes Status: Acute Assessment and plan: No further drop in hemoglobin. No signs of recurrent bleeding at this time. Qualifiers: Anemia type: other cause Other causes of anemia: acute posthemorrhagic Qualified Code(s): D62 - Acute posthemorrhagic anemia (3) Hypomagnesemia Current Visit: Yes Status: Acute Assessment and plan: Hypomagnesemia persists. 24 h urine study pending. Replace IV again today. Recheck again tomorrow. 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 (5) CAD (coronary artery disease) Current Visit: Yes Status: Chronic Assessment and plan: Currently asymptomatic. Qualifiers: Coronary Disease-Associated Artery/Lesion type: [place] artery [place] vs. transplanted heart: [place] heart Associated angina: without angina Qualified Code(s): I25.10 - Atherosclerotic heart disease of [place] coronary artery without angina pectoris (6) Arthritis of left knee Current Visit: Yes Status: Chronic Assessment and plan: Pain control. Patient insists on getting replacement soon due to pain. - Subjective Interval history: Ms. Bustos is currently admitted for acute GI bleed and v fib arrest presumed due to hypomagnesemia. She currently has active C diff. She remains high risk due to persistent hypomagnesemia and risk for cardiac compromise. Ms. Bustos complains of persistent knee pain. Continues to question if pain meds are ordered every three hours. Reassured this has not changed. Says stool was somewhat more formed. No abd pain. No fever or chills. Not eating much still but does take Ensure clear. - Constitutional Vitals: Temp Pulse Resp BP Pulse Ox 98.2 F 90 16 104/64 97 03/12/17 07:57 03/12/17 07:57 03/12/17 07:57 03/12/17 07:57 03/12/17 07:57 General appearance: Present: A&O X 3, pleasant, answers questions appropriately - Head Head exam: Present: normocephalic - Eye Eye exam: Present: EOMI, conjuntiva pink - ENT ENT exam: Present: mucous membranes dry - Respiratory Respiratory exam: Present: decreased breath sounds, CTAB - Cardiovascular Cardiovascular exam: Present: RRR. Absent: tachycardia - GI/Abdominal GI/Abdominal exam: Present: soft. Absent: mass, tenderness - Extremities Exam Extremities exam: Present: joint swelling, warm - Neurological Exam Neurological exam: Present: alert, oriented X3 - Psychiatric Psychiatric exam: Present: normal affect, normal mood - Skin Skin exam: Present: warm. Absent: rash Internal Medicine: Result - Labs CBC & Chem 7: 03/12/17 07:29 03/12/17 07:29 Labs: Short CBC 03/12/17 Range/Units 07:29 WBC 5.4 (4.3-11.1) K/mcL Hgb 9.1 L (11.5-15.4) g/dL Hct 29.2 L (35.3-44.9) % Plt Count 290 (140-400) K/mcL Neutrophils # 3.5 (1.6-8.9) K/mcL BMP 03/12/17 07:29 Sodium 137 Potassium 4.2 Chloride 101 Carbon Dioxide 30 H BUN 7 Creatinine 0.57 Glucose 88 Calcium 9.3 Liver Function 03/12/17 Range/Units 07:29 Total Bilirubin 0.4 (0.2-1.2) mg/dL AST 22 (5-34) Units/L ALT 50 (0-55) Units/L Alkaline Phosphatase 157 H (38-126) Units/L Albumin 1.8 L (3.5-5.0) g/dL - ABG Interpretation ABG results: ABG ABG pH 7.51 pH Units (7.32-7.45) H 02/28/17 04:45 ABG pCO2 30 mmHg (35-45) L 02/28/17 04:45 ABG pO2 111 mmHg (85-104) H 02/28/17 04:45 ABG O2 Saturation 99 % (95-98) H 02/28/17 04:45 - VTE Documentation of Mechanical Device: Intermittent pneumatic compression device Consult Discharge Plan - Plan Instructions: Coronary Artery Disease (DC), Coronary Artery Disease (GEN), Urinary Tract Infection in Women (DC), Clostridium Difficile Infection (DC), Hypomagnesemia (DC), Hypomagnesemia (GEN), Anemia (GEN), Coronary Artery Disease in Women, Perinatal Coordinator (GEN) Referrals: Leno Dickson MD [Partnered Physician] - 03/11/17 1:30 pm Moreno Lara Jr, MD [Primary Care Provider] - 03/19/17 10:00 am
[2017-03-13] MEDS: *HR* LORazepam 0.5 MG TABLET PO PRN (00:59)
[2017-03-13] MEDS: *HR* OxyCODONE/APAP 7.5/325 TABLET PO PRN ×5 (04:53→21:24)
[2017-03-13 06:44] LABS: BUN/Creatinine Ratio 13 (6-26); Blood Urea Nitrogen 7 mg/dL (7-20); Carbon Dioxide 26 mEq/L (19-29); Chloride 102 mEq/L (98-109); Glucose 90 mg/dL (70-99); Magnesium 1.6 mg/dL (1.6-2.6); Osmolality,Calculated 280 (280-300); Potassium 3.9 mEq/L (3.5-4.5); Sodium 136 mEq/L (136-145); eGFR For African Americans > 60 (> 60); eGFR For Non-African Americans > 60 (> 60)
[2017-03-13] MEDS: Metoprolol XL (24 HR) Succ 25 MG TAB.ER.24H PO SCH (08:44)
[2017-03-13] MEDS: Sucralfate 1 GM TABLET PO SCH ×3 (08:44→21:24)
[2017-03-13] MEDS: Magnesium Oxide 400 MG TABLET PO SCH ×2 (08:45→21:24)
[2017-03-13] MEDS: MetroNIDAZOLE 500 MG/100 ML 500 MG/100 ML BAG IVPB SCH (08:47)
--- NOTE | 2017-03-13 12:20 | Electrocardiograph Report ---
[address] [place] [address] Test Date: 2017-03-12 Pat Name: Jenni Bustos Department: 111 Room: 2NE33 Gender: F Senior Information Developer: [id number] : 1930 Requested By: Hector Nickerson Order Number: [id number] Reading MD: Leno Dickson MD Measurements Intervals [place] Rate: 96 P: 49 NM: 172 QRS: -34 QRSD: 118 T: 129 QT: 327 QTc: 381 Interpretive Statements SINUS RHYTHM MARKED LEFT AXIS DEVIATION Poor R wave progression LEFT VENTRICULAR HYPERTROPHY AND ST-T CHANGE POSSIBLE SEPTAL MYOCARDIAL INFARCTION, OF INDETERMINATE AGE BASELINE ARTIFACT Electronically Signed On 03-13-2017 12:19:04 EDT by Leno Dickson MD
--- NOTE | 2017-03-13 14:41 | Nephrology Consult Note ---
Date of Encounter: 03/13/17 Time of Encounter: 10:45 Assessment and Plan (1) Hypomagnesemia Current Visit: Yes Status: Acute Patient has continued to have hypomagnesemia despite having received 23 gms of IV and 800 mgs PO Magnesium Sulfate so far during her admission. Despite this quantity of magnesium repletion, her current magnesium level is 1.6. Her levels of magnesium had gone up to 2.3 at one point, but then came down to 1.2. She was not on any diuretic prior to her admission, nor was she taking any medication that appears to predispose to hypomagnesemia. She denies any diarrhea , nausea, or vomiting prior to admission. Will continue to monitor her magnesium level after more stable supplementation of 800 mg PO BID Will check a Fractional excretion of magnesium with a urine magnesium and creatinine, now that she hasn't had magnesium supplementation IV If patient has continued urinary losses of magnesium and does not appear to be achieving a stable level of magnesium with supplementation, can consider amiloride (2) C. difficile diarrhea Current Visit: Yes Status: Acute Patient found to have diarrhea due to C. Diff. She is currently undergoing antibiotic treatment for her diarrhea and reports that she has not had any diarrhea in 2 days. Care per primary team History of Present Illness - Reason for Consult Consult date: 03/13/17 Requesting physician: Hector Nickerson - Chief Complaint Hypomagesemia - History of Present Illness Mrs. Bustos is an 86 year olf woman who originally presented to [facility] on 02/27/17 after being found to have a UTI. She has a medical history of CAD, arthritis, htn, hld, and prior rectal prolapse. She suffered a V.Fib arrest on the night of 02/27/17 that appeared to be [place]. ROSC was achieved after 1 round of compressions with shock and administration of magnesium. Her magnesium level prior to her cardiac arrest was 0.9. Following her arrest she was found to have a GI bleed with hemoccult positive stool. She underwent a EGD that should a non-bleeding ulcer in the duodenum and it was felt that stress and NSAID usage had contributed to her GIB. She then developed C.Diff during her admission and is currently undergoing antibiotic treatment. During the course of her admission to the hospital she has had low magnesium levels that have shown considerable lability. After the finding of an initial magnesium level of 0.9, she was given significant amounts of magnesium that brought her magnesium level up to 2.3 at one point, but since then it has come down to 1.2 despite continued magnesium supplementation. Her magnesium level is currently 1.6. She has had no complaints currently other than pain in her left knee and chest pain (from chest compressions earlier). Past Med Surg Social Fam HX - Past Medical History Medical history: arthritis, coronary artery disease, hyperlipidemia, hypertension Psychiatric history: no psych history - Social History Smoking Status: Never smoker Smokeless Tobacco Status: No Alcohol use: none Drug use: none - Family History Mother Living Status: Cause of : Heart disease Hx Family Cardiac Disorders: Yes Hx Family Respiratory Disorders: No Hx Family Cancer: No Hx Family GI Disorders: No Hx Family Genitourinary Disorders: No Hx Family Endocrine Disorder: Yes (Diabetic) Hx Family Musculoskeletal Disorders: No Hx Family Neuromuscular Disorders: No Hx Family Neurologic Disorders: No Hx Family HEENT Disorders: No Hx Family Autoimmune Disorders: No Hx Family Reproductive Disorders: No Hx Family Psychosocial Disorders: No Hx Family Medical Disorders: No Medications and Allergies Captopril 50 mg PO BID 10/14/16 [History] Multivitamin [Multivitamins] 1 tab PO DAILY 10/14/16 [History] Simvastatin [Zocor] 40 mg PO HS 10/14/16 [History] Metoprolol XL (24 HR) Succ [Toprol Xl] 50 mg PO BID 11/16/16 [History] OxyCODONE/APAP 5/325 [Percocet 5/325 MG] 1 each PO Q6HR PRN #30 tablet 11/18/16 [Rx] Diclofenac Sodium [Voltaren] 4 gm TP QID PRN 02/27/17 [History] Docusate [Colace] 100 mg PO DAILY PRN 02/27/17 [History] LORazepam [Ativan] 0.5 mg PO TID PRN 02/27/17 [History] Allergies No Known Allergies Allergy (Verified 10/14/16 07:21) Review of Systems Constitutional: no chills, no excessive sweating, no fever(s), no weight loss Nose, mouth and throat: no dizziness, no headache(s) Cardiovascular: as per HPI, chest pain, no dyspnea, no lightheadedness, no palpitations Respiratory: no cough, no dyspnea Gastrointestinal: no abdominal pain, no change in bowel habits, no constipation , no diarrhea, no hematochezia, no nausea, no vomiting Musculoskeletal: no muscle weakness, no numbness, no tingling Neurological: no confusion, no dizziness, no numbness, no tingling, no vertigo, no weakness Psychiatric: no depression, no difficulty concentrating Endocrine: no fatigue, no palpitations Exam - Vital Signs Vital signs: Initial Vital Signs Temp Pulse Resp BP Pulse Ox 98.2 F 98 18 145/83 95 02/27/17 14:21 02/27/17 14:21 02/27/17 14:21 02/27/17 14:21 02/27/17 14:21 Vital Signs - Last 8 Hours Temp Pulse Resp BP Pulse Ox 03/13/17 08:00 98.6 F 103 16 105/60 96 Intake and Output 03/12/17 03/13/17 03/13/17 23:59 07:59 15:59 Intake Total 300 / 300 190 / 190 480 / 480 Output Total 1100 / 1100 600 / 600 Balance -800 / -800 -410 / -410 480 / 480 Intake: IV Fluids 100 / 100 90 / 90 Flagyl 500 MG/100 ML 500 100 / 100 90 / 90 mg In 100 ml @ 100 mls/hr IVPB Q8HR [facility] Rx#: [id number] Oral 200 / 200 100 / 100 480 / 480 Output: Urine 1100 / 1100 Urethral ([place]) 800 / 800 Catheter 600 / 600 Other: Meal Lunch Percent of Meal Consumed 75% # Voids 0 Weight 68.5 kg Patient Weight 03/13/17 23:59 Weight 68.5 kg - General Appearance General appearance: well-developed, well-nourished, appears started age EENT: ATNC, PERRL, mucous membranes moist, hearing intact, vision intact Neck: supple Respiratory: no kyphosis, no scoliosis Cardiology: mid-systolic murmur, no rub, no gallops, no edema, regular rate, regular rhythm, normal S1, normal S2 Gastrointestinal: normoactive bowel sounds, no tenderness, no guarding, no organomegaly, no masses Integumentary: no rash, warm and dry Neurologic: no focal deficit, no asterixis, alert and oriented x3 Musculoskeletal: no deformities, no erythema, no cyanosis, no clubbing Psychiatric: mood/affect appropriate, cooperative Results - Lab Results 03/12/17 07:29 03/13/17 05:52 Most recent lab results ABG pH 7.51 pH Units (7.32-7.45) H 02/28/17 04:45 ABG pCO2 30 mmHg (35-45) L 02/28/17 04:45 ABG pO2 111 mmHg (85-104) H 02/28/17 04:45 ABG HCO3 23.9 mEQ/L (21-27) 02/28/17 04:45 ABG O2 Saturation 99 % (95-98) H 02/28/17 04:45 Calcium 9.0 mg/dL (8.6-10.8) 03/13/17 05:52 Phosphorus 2.3 mg/dL (2.3-4.7) 03/02/17 05:55 Magnesium 1.6 mg/dL (1.6-2.6) 03/13/17 05:52 Consult Discharge Plan - Plan Instructions: Coronary Artery Disease (DC), Coronary Artery Disease (GEN), Urinary Tract Infection in Women (DC), Clostridium Difficile Infection (DC), Hypomagnesemia (DC), Hypomagnesemia (GEN), Anemia (GEN), Coronary Artery Disease in Women, Cartoonist Special Effects (GEN) Referrals: Leno Dickson MD [Partnered Physician] - 03/11/17 1:30 pm Moreno Lara Jr, MD [Primary Care Provider] - 03/19/17 10:00 am
[2017-03-13 14:46] LABS: Urine Magnesium mg/dL 6.8 mg/dL
[2017-03-13] MEDS: metroNIDAZOLE 500 MG TABLET PO SCH (17:59)
[2017-03-13] MEDS: *HR* OxyCODONE ER (12 HR) 20 MG TABLET PO SCH (18:00)
--- NOTE | 2017-03-13 20:26 | Internal Med Progress Note ---
Date of Encounter: 03/13/17 Time of Encounter: 14:00 - Assessment and plan (1) C. difficile diarrhea Current Visit: Yes Status: Acute Assessment and plan: Switch to PO Flagyl at this time. (2) Anemia Current Visit: Yes Status: Acute Assessment and plan: No further drop in hemoglobin. No signs of recurrent bleeding at this time. Continue PPI and Carafate. Qualifiers: Anemia type: other cause Other causes of anemia: acute posthemorrhagic Qualified Code(s): D62 - Acute posthemorrhagic anemia (3) Hypomagnesemia Current Visit: Yes Status: Acute Assessment and plan: Hypomagnesemia persists. Renal evaluation appreciated. Will recheck tomorrow. 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 (5) CAD (coronary artery disease) Current Visit: Yes Status: Chronic Assessment and plan: Currently asymptomatic. Qualifiers: Coronary Disease-Associated Artery/Lesion type: [place] artery [place] vs. transplanted heart: [place] heart Associated angina: without angina Qualified Code(s): I25.10 - Atherosclerotic heart disease of [place] coronary artery without angina pectoris (6) Arthritis of left knee Current Visit: Yes Status: Chronic Assessment and plan: Do not feel she will have an elective surgery in the near future due to recent v fib arrest. Start oxycontin for long acting pain control - Subjective Interval history: Ms. Bustos is currently admitted for acute GI bleed and v fib arrest presumed due to hypomagnesemia. She currently has active C diff. She remains high risk due to persistent hypomagnesemia and risk for cardiac compromise. Ms. Bustos continues to worry about pain. She has less diarrhea and no new issues. No abd pain. No CP or SOB. I did discuss with her today that due to her cardiac arrest it will be a while ( months) till she would be able to have elective surgery. - Constitutional Vitals: Temp Pulse Resp BP Pulse Ox 98.3 F 100 18 122/73 95 03/13/17 16:15 03/13/17 16:15 03/13/17 16:15 03/13/17 16:15 03/13/17 16:15 General appearance: Present: A&O X 3, pleasant, answers questions appropriately - Head Head exam: Present: normocephalic - Eye Eye exam: Present: conjuntiva pink - ENT ENT exam: Present: mucous membranes dry - Respiratory Respiratory exam: Present: decreased breath sounds, CTAB - Cardiovascular Cardiovascular exam: Present: RRR. Absent: tachycardia - GI/Abdominal GI/Abdominal exam: Present: soft. Absent: tenderness - Extremities Exam Extremities exam: Present: warm. Absent: pedal edema - Neurological Exam Neurological exam: Present: alert, oriented X3 - Skin Skin exam: Present: warm. Absent: rash Internal Medicine: Result - Labs CBC & Chem 7: 03/12/17 07:29 03/13/17 05:52 Labs: BMP 03/13/17 05:52 Sodium 136 Potassium 3.9 Chloride 102 Carbon Dioxide 26 BUN 7 Creatinine 0.56 L Glucose 90 Calcium 9.0 - ABG Interpretation ABG results: ABG ABG pH 7.51 pH Units (7.32-7.45) H 02/28/17 04:45 ABG pCO2 30 mmHg (35-45) L 02/28/17 04:45 ABG pO2 111 mmHg (85-104) H 02/28/17 04:45 ABG O2 Saturation 99 % (95-98) H 02/28/17 04:45 - VTE Documentation of Mechanical Device: Intermittent pneumatic compression device Consult Discharge Plan - Plan Instructions: Coronary Artery Disease (DC), Coronary Artery Disease (GEN), Urinary Tract Infection in Women (DC), Clostridium Difficile Infection (DC), Hypomagnesemia (DC), Hypomagnesemia (GEN), Anemia (GEN), Coronary Artery Disease in Women, Bar Roller (GEN) Referrals: Leno Dickson MD [Partnered Physician] - 03/11/17 1:30 pm Moreno Lara Jr, MD [Primary Care Provider] - 03/19/17 10:00 am
[2017-03-14] MEDS: *HR* OxyCODONE/APAP 7.5/325 TABLET PO PRN ×3 (00:39→12:44)
[2017-03-14] MEDS: metroNIDAZOLE 500 MG TABLET PO SCH ×4 (00:39→22:14)
[2017-03-14] MEDS: *HR* OxyCODONE ER (12 HR) 20 MG TABLET PO SCH ×2 (06:04→22:18)
[2017-03-14 06:34] LABS: Hematocrit 29.1 % (35.3-44.9); Hemoglobin 9.2 g/dL (11.5-15.4); Mean Corpuscular HGB Conc 31.6 g/dL (31.6-35.5); Mean Corpuscular Hemoglobin 29.9 pg (28.0-33.3); Mean Corpuscular Volume 94.5 fL (83.0-100.0); Mean Platelet Volume 9.6 fL (9.4-12.4); Platelet Count 281 K/mcL (140-400); Red Blood Count 3.08 M/mcL (3.82-4.97)
[2017-03-14 06:47] LABS: BUN/Creatinine Ratio 12 (6-26); Blood Urea Nitrogen 6 mg/dL (7-20); Calcium 9.3 mg/dL (8.6-10.8); Carbon Dioxide 29 mEq/L (19-29); Chloride 101 mEq/L (98-109); Glucose 85 mg/dL (70-99); Magnesium 1.3 mg/dL (1.6-2.6); Osmolality,Calculated 277 (280-300); Sodium 135 mEq/L (136-145); eGFR For African Americans > 60 (> 60); eGFR For Non-African Americans > 60 (> 60)
[2017-03-14] MEDS: Metoprolol XL (24 HR) Succ 25 MG TAB.ER.24H PO SCH (09:04)
[2017-03-14] MEDS: Sucralfate 1 GM TABLET PO SCH ×2 (09:05→18:20)
[2017-03-14] MEDS: Magnesium Oxide 400 MG TABLET PO SCH ×2 (09:05→22:14)
--- NOTE | 2017-03-14 09:28 | Nephrology Progress Note ---
Date of Encounter: 03/14/17 Time of Encounter: 08:35 - Assessment and Plan (1) Hypomagnesemia Current Visit: Yes Status: Acute Patient magnesium sulfate 1.6-1.3 today, patient continued receive oral supplementation of 500 mg twice a day. We will wait for urine magnesium results Continue by mouth magnesium supplementation Recheck magnesium in the morning Will give an additional 2 gm magnesium over 4 hourss (2) C. difficile diarrhea Current Visit: Yes Status: Acute Patient found to have diarrhea due to C. Diff. She is currently undergoing antibiotic treatment for her diarrhea and reports that she has not had a bowel movement in 2 days, but she does feel that she has a bowel movement today. Care per primary team Subjective Principal diagnosis: VFib Arrest, Hypomagnesemia Interval history: Patient reports doing well this morning. No new concerns/complaints, continuing to complain of pain in her left knee. Patient had lower extremity venous Doppler performed this morning which showed a DVT in the right greater saphenous vein. Objective - Vital Signs Vital signs: Vital Signs Temp Pulse Resp BP Pulse Ox 03/14/17 05:44 98.1 F 92 16 119/63 97 03/13/17 21:36 98.4 F 110 16 131/83 98 03/13/17 16:15 98.3 F 100 18 122/73 95 Intake and Output 03/13/17 03/14/17 03/14/17 23:59 07:59 15:59 Output Total 500 / 500 750 / 750 Balance -500 / -500 -750 / -750 Output: Catheter 500 / 500 750 / 750 Other: Weight 68.1 kg Patient Weight 03/14/17 23:59 Weight 68.1 kg - General Appearance General appearance: Present: well-developed, well-nourished, appears started age EENT: Present: ATNC, PERRL, mucous membranes dry Neck: Present: no JVD, supple Respiratory: Present: no kyphosis, no scoliosis, clear Cardiology: Present: mid-systolic murmur, no rub, no gallops, no edema, regular rate, regular rhythm, normal S1, normal S2 Gastrointestinal: Present: normoactive bowel sounds, no tenderness, no guarding , no organomegaly Integumentary: Present: no rash, warm and dry Additional Comments: +1 pitting edema left lower extremity, tenderness to palpation in left lower extremity, no swelling noted in right lower extremity, no erythema noted, negative Homans sign Neurologic: Present: no focal deficit, no asterixis, alert and oriented x3 Musculoskeletal: Present: no deformities, no erythema, no cyanosis, no clubbing Psychiatric: Present: mood/affect appropriate, cooperative - Lab 03/14/17 05:42 03/14/17 05:42 Most recent lab results ABG pH 7.51 pH Units (7.32-7.45) H 02/28/17 04:45 ABG pCO2 30 mmHg (35-45) L 02/28/17 04:45 ABG pO2 111 mmHg (85-104) H 02/28/17 04:45 ABG HCO3 23.9 mEQ/L (21-27) 02/28/17 04:45 ABG O2 Saturation 99 % (95-98) H 02/28/17 04:45 Calcium 9.3 mg/dL (8.6-10.8) 03/14/17 05:42 Phosphorus 2.3 mg/dL (2.3-4.7) 03/02/17 05:55 Magnesium 1.3 mg/dL (1.6-2.6) L 03/14/17 05:42 Urine Creatinine 98 mg/dL 03/13/17 18:15 - VTE Documentation of Mechanical Device: Graduated compression elastic hosiery Consult Discharge Plan - Plan Instructions: Coronary Artery Disease (DC), Coronary Artery Disease (GEN), Urinary Tract Infection in Women (DC), Clostridium Difficile Infection (DC), Hypomagnesemia (DC), Hypomagnesemia (GEN), Anemia (GEN), Coronary Artery Disease in Women, Cna Caregiver (GEN) Referrals: Leno Dickson MD [Partnered Physician] - 03/11/17 1:30 pm Moreno Lara Jr, MD [Primary Care Provider] - 03/19/17 10:00 am
[2017-03-14] MEDS ORDERED: Magnesium Sulfate 2 GM in D5% in Water 100 ML IVPB ONE (11:21)
[2017-03-14] MEDS: *HR* LORazepam 0.5 MG TABLET PO PRN ×2 (14:29→22:14)
[2017-03-14] MEDS ORDERED: 0.9 % Sodium Chloride 500 ML ONE (15:23)
--- NOTE | 2017-03-14 15:27 | Vascular/Endovasc Consult Note ---
Date of Encounter: 03/14/17 Time of Encounter: 13:30 Assessment and Plan (1) Deep vein thrombosis (DVT) Status: Acute The patient has a saphenofemoral junction thrombus. The patient has prolonged immobility due to arthritic left knee pain. She also has a recent anemia and GI bleeding due to a duodenal ulcer. She is unable to be anticoagulated. Her total knee replacement has been delayed until she resolved her acute illness. Given the prolonged immobility and the fact that she cannot be anticoagulated. She may benefit from an inferior vena cava filter. The risks, benefits and alternatives were discussed and all questions were answered. She expressed understanding and wishes to proceed. Qualifiers: DVT location: lower extremity Affected thrombotic vein of extremity: femoral Laterality: right Chronicity: acute Qualified Code(s): I82.411 - Acute embolism and thrombosis of right femoral vein (2) Anemia Status: Chronic Anemia is secondary to a duodenal ulcer. Qualifiers: Anemia type: other cause Other causes of anemia: acute posthemorrhagic Qualified Code(s): D62 - Acute posthemorrhagic anemia (3) C. difficile diarrhea Status: Acute (4) Arthritis of left knee Status: Chronic (5) Hyperlipidemia, mixed Status: Chronic She was counseled regarding atherosclerotic risk factor reduction. (6) Essential hypertension Status: Chronic - History of Present Illness Consult date: 03/14/17 Requesting physician: Hector Nickerson Consult reason: DVT, prolonged immobility, GI bleed Chief complaint: Deep vein thrombosis with contraindication to anticoagulation History of present illness: Ms. Bustos is a 86 year old female who was admitted to [facility] with a urinary tract infection. She subsequently had a cardiac arrest and was found to be frofoundly hypomagnesemic. She was noted to have c. diff. She also was foudn to have anemia and underwent a EGD. She was noted to have a duodenal ulcer. The patient has severely limted mobility due to chronic left knee arthritis. She underwent a venous duplex and thrombus was noted at the saphenofemoral junction. Vascular surgery was consulted for further evaluation. She currently reports that she is comfortable with the exception of her left knee pain. She denies chest pain or shortness of breath. Past Med Surg Social Fam HX - Past Medical History Medical history: arthritis, coronary artery disease, hyperlipidemia, hypertension Psychiatric history: no psych history - Social History Smoking Status: Never smoker Smokeless Tobacco Status: No Alcohol use: none Drug use: none - Family History Mother Living Status: Cause of : Heart disease Hx Family Cardiac Disorders: Yes Hx Family Respiratory Disorders: No Hx Family Cancer: No Hx Family GI Disorders: No Hx Family Genitourinary Disorders: No Hx Family Endocrine Disorder: Yes (Diabetic) Hx Family Musculoskeletal Disorders: No Hx Family Neuromuscular Disorders: No Hx Family Neurologic Disorders: No Hx Family HEENT Disorders: No Hx Family Autoimmune Disorders: No Hx Family Reproductive Disorders: No Hx Family Psychosocial Disorders: No Hx Family Medical Disorders: No Medications and Allergies Multivitamin [Multivitamins] 1 tab PO DAILY 10/14/16 [History] Simvastatin [Zocor] 40 mg PO HS 10/14/16 [History] Diclofenac Sodium [Voltaren] 4 gm TP QID PRN 02/27/17 [History] LORazepam [Ativan] 0.5 mg PO TID PRN 02/27/17 [History] Docusate [Colace] 100 mg PO BID capsule 03/18/17 [Rx] MOM Conc [MILK OF MAGNESIA conc] 10 ml PO DAILY PRN #0 ud.liq 03/18/17 [Rx] Magnesium Oxide [Mag-Ox] 400 mg PO TID tablet 03/18/17 [Rx] Metoprolol XL (24 HR) Succ [Toprol Xl] 12.5 mg PO DAILY tab.er.24h 03/18/17 [Rx ] MetroNIDAZOLE [Flagyl] 500 mg PO Q8H tablet 03/18/17 [Rx] Omeprazole [PriLOSEC] 20 mg PO BIDAC capsule. 03/18/17 [Rx] OxyCODONE ER (12 HR) [OxyCONTIN] 20 mg PO Q12HR #6 tab.er.12h 03/18/17 [Rx] OxyCODONE/APAP 7.5/325 [Percocet 7.5/325 MG] 1 each PO Q3HR PRN #12 tablet 03/18 [Rx] Potassium Chloride 20 meq PO DAILY tab.er.prt 03/18/17 [Rx] Sucralfate [Carafate] 1 gm PO TID tablet 03/18/17 [Rx] Allergies No Known Allergies Allergy (Verified 10/14/16 07:21) All Systems Review: A 10-system review of systems was performed and is negative for pertinent findings except as documented above in the HPI. - Constitutional Constitutional: no chills, no fever(s) - Cardiovascular Cardiovascular: no chest pain at rest, no chest pain with exertion, no dyspnea at rest, no dyspnea on exertion - Respiratory Respiratory: no chest wall pain - Gastrointestinal Gastrointestinal: no abdominal pain Exam General: Present: Conversant, No Apparent Distress HEENT: Present: Atraumatic, Normocephaly, Pupils equal Neck: Absent: JVD, Left Carotid bruit, Right Carotid bruit Cardiac: Present: Reg Rate and Rhythm Lungs: Present: Normal Breath Sounds, No Wheeze, Rales, Rhonchi Neuro: Present: Alert and responsive, No focal deficits noted, Motor nerves grossly intact, Sensory nerves grossly intact Abdomen: Present: Soft, Non-tender Vascular: Present: Normal capillary refill, Pulse, normal, Edema (trace edema) Consult Discharge Plan - Plan Instructions: Coronary Artery Disease (DC), Coronary Artery Disease (GEN), Urinary Tract Infection in Women (DC), Clostridium Difficile Infection (DC), Hypomagnesemia (DC), Hypomagnesemia (GEN), Anemia (GEN), Coronary Artery Disease in Women, 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 Matthews for further L total knee replacement. Pt will need follow up appointment with cardiology for clearance work up for future L total knee surgery. Referrals: Leno Dickson MD [Partnered Physician] - 03/11/17 1:30 pm Moreno Lara Jr, MD [Primary Care Provider] - 03/19/17 10:00 am Prescriptions: OxyCODONE/APAP 7.5/325 [Percocet 7.5/325 MG] 1 each PO Q3HR PRN #12 tablet PRN Reason: Moderate Pain OxyCODONE ER (12 HR) [OxyCONTIN] 20 mg PO Q12HR #6 tab.er.12h
--- NOTE | 2017-03-14 15:36 | Pre-Sedation Evaluation ---
Pre-sedation evaluation - Pre-sedation checklist Date of procedure: 03/04/17 Procedure: EGD Recent Vitals: Last Vital Signs Temp 98.1 F 03/14/17 09:30 Pulse 92 03/14/17 05:44 Resp 16 03/14/17 05:44 BP 119/63 03/14/17 05:44 Pulse Ox 97 03/14/17 05:44 H&P (including ROS) documented in medical record: Yes Previous reaction to sedatives/anesthetics: Yes; explain in comment Dietary Status: NPO after Midnight Dentition: dentures removed ASA Classification *see protocol: CLASS III-Severe systemic disease Plan of Care: Pt appropriate candidate for procedure/moderate/conscious sedation , Risks/benefits of procedure/sedation discussed w/ patient/family
[2017-03-14] MEDS ORDERED: *HR* Midazolam HCl 2 MG/2 ML VIAL ONE (15:52)
[2017-03-14] MEDS ORDERED: 0.9 % Sodium Chloride 1,000 ML ONE (15:52)
[2017-03-14] MEDS ORDERED: *HR* FentaNYL (PF) 100 MCG/2 ML VIAL ONE (16:19)
--- NOTE | 2017-03-14 16:56 | Invasive Diagnostic Lab Proc ---
Name: Jenni Bustos Date of Study: 03/14/2017 Date: 1930 Ht: 145.0 in Medical Record#: [id number] Age: 86 Wt: 68 lb Gender: Female BSA: 1.59 Order #: [id number] BMI: 32.34 Physicians Performing MD: Ryne Arellano MD Referring MD: Referring MD: Staff Name Position Time In Winnie Garay RT Monitor Winnie Garay RT Scrub Kassandra Chen RN Private Duty Aide Indications DVT, Unilateral Procedures Performed IVC FILTER PLACEMENT Pre-Procedure Checklist Informed consent is complete signed and on chart. H\\T\\P is on chart. ID band is on and ID verified with patient. Patient NPO for procedure The procedure was described for the patient and questions were answered. Blood Pressure: 156/85 ECG is on chart. Rhythm: NSR Plan of Care Patient will tolerate the procedure without complications. Adequate level of comfort will be maintained. Hemodynamics will remain stable Patient will recover from procedure without complications. Respiratory function will be maintained. Cardiac rhythm will remain stable. Patient temperature will be maintained. Patient and/or family have verbalized understanding of the procedure. Patient Education Chief Complaint/Reason for Test: IVC filter Developmental Category: Geriatric (65+ years) Learning Barriers: None Education Needs: Procedure Education Method: Verbal Information Taught: Peripheral angiogram Educational Evaluation: Able to repeat information Intravenous Access Time IV Size Location DC'd Fluid/Drip Rate Units RN 20g 1 /" Patent On Arrival Lt Antecubital 0.9NaCl 25 ml/hr Kassandra Chen RN Allergies No Known Allergies Vital Signs Time BP Systolic BP Diastolic HR O2 Sats ASA 03:39 PM 119 63 92 97 04:19 PM 04:16 PM 156 85 103 94 04:21 PM 129 78 97 94 04:26 PM 124 74 94 99 04:31 PM 125 78 97 99 04:36 PM 135 80 95 100 04:41 PM 139 80 96 99 04:46 PM 125 82 94 99 Procedure Medications Time Medication Dose Units Method Route 04:19 PM Oxygen 2 L/min nasal cannula 04:19 PM Versed 1 mg Intravenous 04:19 PM Fentanyl 50 mcg Intravenous 04:23 PM Lidocaine 2% 6 ml Subcutaneous ASA Classification: CLASS III- Severe systemic disease (i.e. prior AMI, diabetes with vascular complications, morbid obesity) Danilo Score Preprocedure Postprocedure Activity 2- Moves 4 extremities sustained head lift Activity 2- Moves 4 extremities sustained head lift Circulation 2- SBP +/= 20 points of pre-anesthetic level Circulation 2- SBP +/= 20 points of pre-anesthetic level Consciousness 2- Awake and alert oriented x 3 Consciousness 2- Awake and alert oriented x 3 O2 Saturation 2- Able to maintain O2 satruation of 92% on room air O2 Saturation 2- Able to maintain O2 satruation of 92% on room air Respiratory 2- Able to deep breathe and cough well Respiratory 2- Able to deep breathe and cough well Total Score 10 Total Score 10 Contrast: Isovue 250- 150ml Contrast Amount: 10 ml Fluoro Dose: 44 mGy Procedure Log Time Note Entered By 04:18 PM Pt arrived to [facility] at 16:18 scoates 04:18 PM Physician arrived 16:18 scoates 04:18 PM Meet and greet completed scoates 04:18 PM Sign in performed according to hospital policy. scoates 04:18 PM Procedure start 16:18 scoates 04:18 PM Carol Perla RT (R) Position: Monitor Time in: 16:18 scoates 04:18 PM Winnie Garay RT Position: Scrub Time in: 16:18 scoates 04:18 PM Kassandra Chen RN Position: Private Duty Aide Time in: 16:18 scoates 04:18 PM Case delayed: No scoates 04:19 PM Hair removed from procedure site in holding area using clippers. Bilateral groin prepped with Chloraprep by Carol Perla RT (R), safety strap applied then patient was draped. Skin intact. scoates 04:19 PM 16:19 Oxygen at 2 L/min per nasal cannula by Kassandra Chen RN scoates 04:19 PM 16:19 Versed 1 mg Intravenous Given by Kassandra Chen RN scoates 04:19 PM Time: 16:19 Is patient comfortable and pain free?: Yes scoates 04:19 PM Time: 16:19LOC: 5 = Fully awake and oriented or at pre-proc level scoates 04:20 PM 16:19 Fentanyl 50 mcg Intravenous Given by Kassandra Chen RNoates 04:20 PM Time out perfomed scoates 04:23 PM Patient Charges- Cook Celect IVC Filter ,Tray Pack and Pulse Oximetry. tsites 04:23 PM 16:23 6 ml Lidocaine 2% to right groin Subcutaneous Given By Ryne Arellano MD tsites 04:26 PM Access obtain and IVC Filter sheath inserted Lt Femoral vein. tsites 04:26 PM 0.035 180cm Bentson wire utilized to assist with catheter placement tsites 04:26 PM 5cc of contrast injected tsites 04:26 PM Inferiorvenacavagram performed. tsites 04:27 PM IVC Filter inserted into the inferior vena cava tsites 04:29 PM IVC Filter deployed into the inferior vena cava tsites 04:29 PM 5cc of contrast injected tsites 04:30 PM Procedure completed at 16:30 tsites 04:30 PM Sign Out completed: Radiation Dose 44.16 mGy Fluoro Time: 0.9 minutes. Isovue 250- 150ml contrast 10 ml given by Ryne Arellano MD. Complications: None. Confirmed administered medications:Yes tsites 04:31 PM Isovue 250- 150ml,1 bottle(s) used. tsites 04:39 PM Venous sheath pulled using manual compression and V+Pad for 12 minutes by Winnie Garay RT tsites 04:15 PM PVIStat 04:15 PM Vitals capture started with the following parameters, Patient=Adult, Interval=5 min, Initial Kpsxaxyn=746 mmHg, Deflation Rate=5 mmHg 04:16 PM KY=830 bpm, NIGD=200/85 mmhg, SpO2=94.0 % 04:21 PM HR=97 bpm, SQYR=399/78 mmhg, SpO2=94.0 % 04:26 PM HR=94 bpm, BUNU=614/74 mmhg, SpO2=99 %, Resp=24 B/min 04:31 PM HR=97 bpm, CJVP=593/78 mmhg, SpO2=99 %, Resp=22 B/min 04:36 PM HR=95 bpm, TNDD=052/80 mmhg, VbY1=777 % 04:41 PM HR=96 bpm, KLMI=797/80 mmhg, SpO2=99 %, Resp=26 B/min 04:46 PM HR=94 bpm, YXAR=669/82 mmhg, SpO2=99 %, Resp=14 B/min 04:47 PM Post Blood Pressure: 125/82 tsites 04:47 PM Post EKG: NSR tsites 04:47 PM 16:47 Post Pulses: Bilateral DP \\T\\ PT 1+. tsites 04:47 PM Information taught: IVC filter tsites 04:47 PM Education needs: Procedure, Plan of Care, and Responsibilities of Patient in Care tsites 04:47 PM Learning barriers: None tsites 04:47 PM Education methods: Verbal tsites 04:47 PM Education evaluation: Able to repeat information tsites 04:47 PM Patient pain level 0/10 tsites 04:48 PM Opsite applied tsites 04:48 PM Site status No bleeding/hematoma - Rt Groin as reported by Winnie Garay RT at 16:48 tsites 04:49 PM Report given to Zamzam BEAVER. Pt taken to [facility], Room # 33 16:48 tsites 04:49 PM Delay to floor: No tsites 04:49 PM Pt taken to [facility] Room# 33 tsites 04:49 PM no family at this time tsites 04:49 PM Patient out of room 16:49 tsites Post Procedure Information Blood Pressure: 125/82 mmHg Rhythm: NSR Report Given To: Chante Vogt Checks Time Location Status Staff Sheath In? Note 4:48:00 PM Rt Groin Winnie Garay Pulses Time Site Pre Procedure Post Procedure Note Bilateral DP \\T\\ PT 1+ Bilateral radial 2+ 4:47:00 PM Bilateral DP \\T\\ PT 1+ Updated by Carol Perla RT (R) on 03/14/2017 4:50:37 PM Carol Perla RT electronically signed on 03/14/2017 4:50:58 PM with status of Final
--- NOTE | 2017-03-14 17:03 | Invasive Diagnostic Lab ---
Name: Jenni Bustos Date of Study: 03/14/2017 Date: 1930 Ht: 145.0 in Medical Record#: [id number] Age: 86 Wt: 68 lb Gender: Female BSA: 1.59 Order #: [id number] Fluoro: 44 mGy BMI: 32.34 Procedure MD: Ryne Arellano MD Procedures Performed: IVC FILTER PLACEMENT Indications: DVT, Unilateral Impressions: Patent inferior vena cava. Successful placement of Celect Inferior Vena Cava Filter. No complications. Recommendations: Return to floor. History/ Risk Factors: Dyslipidemia Hypertension Technique: After obtaining fully informed consent the patient was brought to the catheterization laboratory in the fasting state. The patient was prepped in the usual sterile fashion. Local anesthetic was infused subcutaneously in the right groin. The right femoral vein was punctured under ultrasound guidance. The vein was cannulated with an 18 gauge needle. A wire was advanced through the needle and the needle was exchanged for the filter sheath. The sheath was placed in the right Femoral vein. An inferior venacavogram was then performed. The filter sheath was then advenced to the L2-L3 interspace and the filter was deployed. A completion cavogram was then performed which revealed no extravasation of contrast, adequate infrarenal placement of the filter and no intraluminal filling defects. The sheath was removed. Manual pressure was applied to aid in hemostasis. The patient was then taken to the recovery room in stable condition. Total Contrast: Isovue 250- 150ml 10mls Updated by Ryne Arellano MD on 03/14/2017 4:57:49 PM electronically signed on 03/14/2017 4:58:18 PM with status of Final
--- NOTE | 2017-03-14 17:23 | Venous Imaging Report ---
LE Venous Duplex Patient Name:Jenni Bustos Order Number:[id number] Procedure Date:03/14/2017 Date:1930ge:86 yrs Gender:Female Location:[facility] Room #: [id number] Retaining Room Cutter:Melissa Ponce Referring MD:Hector Nickerson DO freight car inspector:Moreno Lara MD Reading MD:Ryne Arellano MD Secondary Indications: Risk Factors Yes/No Hx of DVT No Anticoagulants No Hx of Chemotherapy No Impressions: Acute venous thrombosis is present at the saphenofemoral junction. Normal left lower extremity deep and superficial venous exam. Recommendations: Further evaluation recommended. After imaging the patient returned to their room. Test completed on 03/14/2017 at 8:00:00 am. Critical findings reported to Sydnie BEAVER by phone at 8:09:00 am on 03/14/2017 by Melissa Ponce. Findings Venous Duplex Results: Right: Venous imaging of the lower extremity reveals full patency and normal vessel compressibility of the right distal iliac, right common femoral, right superficial femoral, right popliteal, right posterior tibial, right peroneal and right lesser saphenous. Doppler signals in the evaluated veins were normal. The right great saphenous demonstrates a partially compressible vein. Flow was phasic and it did augment. Thrombus in GSV is right at the junction. Left: Venous imaging of the lower extremity reveals full patency and normal vessel compressibility of the left distal iliac, left common femoral, left superficial femoral, left popliteal, left posterior tibial, left peroneal, left great saphenous and left lesser saphenous. Doppler signals in the evaluated veins were normal. Lower Extremity Venous Duplex Side Vein Compress Spontaneous Flow Augment Diameter (cm) Depth (cm) Right Distal Iliac Normal Yes Phasic Yes Right Common Femoral Normal Yes Phasic Yes Right Superficial Femoral Normal Yes Phasic Yes Right Popliteal Normal Yes Phasic Yes Right Posterior Tibial Normal Yes Phasic Yes Right Peroneal Normal Yes Phasic Yes Right Great Saphenous Partial Yes Phasic Yes Right Lesser Saphenous Normal Yes Phasic Yes Left Distal Iliac Normal Yes Phasic Yes Left Common Femoral Normal Yes Phasic Yes Left Superficial Femoral Normal Yes Phasic Yes Left Popliteal Normal Yes Phasic Yes Left Posterior Tibial Normal Yes Phasic Yes Left Peroneal Normal Yes Phasic Yes Left Great Saphenous Normal Yes Phasic Yes Left Lesser Saphenous Normal Yes Phasic Yes Updated by Ryne Arellano MD on 03/14/2017 5:16:28 PM electronically signed on 03/14/2017 5:18:52 PM with status of Final
--- NOTE | 2017-03-14 19:49 | Internal Med Progress Note ---
Date of Encounter: 03/14/17 Time of Encounter: 08:45 - Assessment and plan (1) Saphenous vein clot Current Visit: Yes Status: Acute Assessment and plan: Acute GSV thrombus - Cannot be anticoagulated or take asa due to duodenal ulcer. Vascular consult for IVC filter. Qualifiers: Laterality: right Qualified Code(s): I82.811 - Embolism and thrombosis of superficial veins of right lower extremities (2) C. difficile diarrhea Current Visit: Yes Status: Acute Assessment and plan: Tolerating PO Flagyl. (3) Anemia Current Visit: Yes Status: Acute Assessment and plan: H/H has remained stable. Qualifiers: Anemia type: other cause Other causes of anemia: acute posthemorrhagic Qualified Code(s): D62 - Acute posthemorrhagic anemia (4) Hypomagnesemia Current Visit: Yes Status: Acute Assessment and plan: Appreciate renal input. Replaced today. Continue to follow. (5) Ventricular fibrillation Current Visit: Yes Status: Resolved Assessment and plan: Continue on playground monitor. (6) CAD (coronary artery disease) Current Visit: Yes Status: Chronic Assessment and plan: Currently asymptomatic. Qualifiers: Coronary Disease-Associated Artery/Lesion type: [place] artery [place] vs. transplanted heart: [place] heart Associated angina: without angina Qualified Code(s): I25.10 - Atherosclerotic heart disease of [place] coronary artery without angina pectoris (7) Arthritis of left knee Current Visit: Yes Status: Chronic Assessment and plan: Do not feel she will have an elective surgery in the near future due to recent v fib arrest. Tolerating Oxycontin at this time. - Subjective Interval history: Ms. Bustos is currently admitted for acute GI bleed and v fib arrest presumed due to hypomagnesemia. She currently has active C diff. She remains high risk due to persistent hypomagnesemia and risk for cardiac compromise. Ms. Bustos has low magnesium again today. She also has been found to have a greater saphenous vein thrombus on R (proximal). She is doing OK. Still with a lot of pain. No other acute issue. - Constitutional Vitals: Temp Pulse Resp BP Pulse Ox 98.1 F 93 16 108/71 97 03/14/17 09:30 03/14/17 18:29 03/14/17 18:29 03/14/17 18:29 03/14/17 18:29 General appearance: Present: A&O X 3, pleasant, answers questions appropriately - Head Head exam: Present: normocephalic - Eye Eye exam: Present: conjuntiva pink - ENT ENT exam: Present: mucous membranes dry - Respiratory Respiratory exam: Present: decreased breath sounds, CTAB - Cardiovascular Cardiovascular exam: Present: RRR. Absent: systolic murmur, tachycardia - GI/Abdominal GI/Abdominal exam: Present: soft. Absent: tenderness - Extremities Exam Extremities exam: Present: warm. Absent: pedal edema - Neurological Exam Neurological exam: Present: alert, oriented X3, no focal deficits - Psychiatric Psychiatric exam: Present: normal affect, normal mood - Skin Skin exam: Present: warm. Absent: rash Internal Medicine: Result - Labs CBC & Chem 7: 03/14/17 05:42 03/14/17 05:42 Labs: Short CBC 03/14/17 Range/Units 05:42 WBC 6.9 (4.3-11.1) K/mcL Hgb 9.2 L (11.5-15.4) g/dL Hct 29.1 L (35.3-44.9) % Plt Count 281 (140-400) K/mcL [facility] 03/14/17 05:42 Sodium 135 L Potassium 4.0 Chloride 101 Carbon Dioxide 29 BUN 6 L Creatinine 0.50 L Glucose 85 Calcium 9.3 - ABG Interpretation ABG results: ABG ABG pH 7.51 pH Units (7.32-7.45) H 02/28/17 04:45 ABG pCO2 30 mmHg (35-45) L 02/28/17 04:45 ABG pO2 111 mmHg (85-104) H 02/28/17 04:45 ABG O2 Saturation 99 % (95-98) H 02/28/17 04:45 - VTE Documentation of Mechanical Device: Graduated compression elastic hosiery Consult Discharge Plan - Plan Instructions: Coronary Artery Disease (DC), Coronary Artery Disease (GEN), Urinary Tract Infection in Women (DC), Clostridium Difficile Infection (DC), Hypomagnesemia (DC), Hypomagnesemia (GEN), Anemia (GEN), Coronary Artery Disease in Women, Office Secretary (GEN) Referrals: Leno Dickson MD [Partnered Physician] - 03/11/17 1:30 pm Moreno Lara Jr, MD [Primary Care Provider] - 03/19/17 10:00 am
[2017-03-15] MEDS: *HR* OxyCODONE ER (12 HR) 20 MG TABLET PO SCH ×2 (05:01→18:58)
[2017-03-15 05:06] LABS: Hemoglobin 9.7 g/dL (11.5-15.4); Mean Corpuscular HGB Conc 32.3 g/dL (31.6-35.5); Mean Corpuscular Hemoglobin 30.3 pg (28.0-33.3); Mean Corpuscular Volume 93.8 fL (83.0-100.0); Mean Platelet Volume 9.6 fL (9.4-12.4); Platelet Count 279 K/mcL (140-400)
[2017-03-15 05:23] LABS: BUN/Creatinine Ratio 13 (6-26); Blood Urea Nitrogen 7 mg/dL (7-20); Calcium 9.3 mg/dL (8.6-10.8); Carbon Dioxide 29 mEq/L (19-29); Chloride 102 mEq/L (98-109); Glucose 94 mg/dL (70-99); Magnesium 1.4 mg/dL (1.6-2.6); Osmolality,Calculated 278 (280-300); Potassium 4.2 mEq/L (3.5-4.5); Sodium 135 mEq/L (136-145); eGFR For African Americans > 60 (> 60); eGFR For Non-African Americans > 60 (> 60)
[2017-03-15] MEDS: *HR* OxyCODONE/APAP 7.5/325 TABLET PO PRN ×3 (09:32→21:23)
[2017-03-15] MEDS: metroNIDAZOLE 500 MG TABLET PO SCH ×3 (09:33→23:36)
[2017-03-15] MEDS: Metoprolol XL (24 HR) Succ 25 MG TAB.ER.24H PO SCH (09:34)
[2017-03-15] MEDS: Magnesium Oxide 400 MG TABLET PO SCH ×3 (09:34→21:23)
[2017-03-15] MEDS: Sucralfate 1 GM TABLET PO SCH ×3 (09:34→21:23)
--- NOTE | 2017-03-15 10:40 | Nephrology Progress Note ---
Date of Encounter: 03/15/17 Time of Encounter: 10:37 - Assessment and Plan (1) Hypomagnesemia Current Visit: Yes Status: Acute Will check a 24 hour urine for magnesium. Will replace magnesium tomorrow. Patient will likely benefit by the use of amiloride. Subjective Principal diagnosis: VFib Arrest, Hypomagnesemia Interval history: Patient reports she is feeling well. She denies pain. ROS otherwise is stable or negative. Objective - Vital Signs Vital signs: Vital Signs Temp Pulse Resp BP Pulse Ox 03/15/17 09:53 105 18 108/72 95 03/15/17 06:51 97.4 F L 91 14 105/66 93 03/15/17 05:43 98.4 F 93 16 116/71 92 03/14/17 23:54 102 16 127/87 96 03/14/17 21:25 98.2 F 98 18 117/77 93 03/14/17 18:29 93 16 108/71 97 Intake and Output 03/14/17 03/15/17 03/15/17 23:59 07:59 15:59 Intake Total 0 / 0 0 / 0 120 / 120 Output Total 450 / 450 650 / 650 Balance -450 / -450 -650 / -650 120 / 120 Intake: Oral 0 / 0 0 / 0 120 / 120 Output: Catheter 450 / 450 650 / 650 Other: Meal Breakfast Percent of Meal Consumed 10% # Voids 0 Weight 67 kg Patient Weight 03/15/17 23:59 Weight 67 kg - General Appearance General appearance: Present: well-developed, well-nourished Respiratory: Present: clear Additional Comments: unlabored. Cardiology: Present: regular rate Neurologic: Present: alert and oriented x3 Psychiatric: Present: mood/affect appropriate - Lab 03/15/17 04:44 03/15/17 04:44 Most recent lab results ABG pH 7.51 pH Units (7.32-7.45) H 02/28/17 04:45 ABG pCO2 30 mmHg (35-45) L 02/28/17 04:45 ABG pO2 111 mmHg (85-104) H 02/28/17 04:45 ABG HCO3 23.9 mEQ/L (21-27) 02/28/17 04:45 ABG O2 Saturation 99 % (95-98) H 02/28/17 04:45 Calcium 9.3 mg/dL (8.6-10.8) 03/15/17 04:44 Phosphorus 2.3 mg/dL (2.3-4.7) 03/02/17 05:55 Magnesium 1.4 mg/dL (1.6-2.6) L 03/15/17 04:44 Urine Creatinine 98 mg/dL 03/13/17 18:15 - VTE Documentation of Mechanical Device: Intermittent pneumatic compression device Consult Discharge Plan - Plan Instructions: Coronary Artery Disease (DC), Coronary Artery Disease (GEN), Urinary Tract Infection in Women (DC), Clostridium Difficile Infection (DC), Hypomagnesemia (DC), Hypomagnesemia (GEN), Anemia (GEN), Coronary Artery Disease in Women, 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
--- NOTE | 2017-03-15 12:18 | Internal Med Progress Note ---
Date of Encounter: 03/15/17 Time of Encounter: 11:30 - Assessment and plan (1) Saphenous vein clot Current Visit: Yes Status: Acute Assessment and plan: S/P IVC filter yesterday. No acute issues after procedure. Qualifiers: Laterality: right Qualified Code(s): I82.811 - Embolism and thrombosis of superficial veins of right lower extremities (2) C. difficile diarrhea Current Visit: Yes Status: Acute Assessment and plan: Completing course of Flagyl. Diarrhea has improved. (3) Anemia Current Visit: Yes Status: Acute Assessment and plan: H/H has remained stable. Qualifiers: Anemia type: other cause Other causes of anemia: acute posthemorrhagic Qualified Code(s): D62 - Acute posthemorrhagic anemia (4) Hypomagnesemia Current Visit: Yes Status: Acute Assessment and plan: Persists. Appreciate renal input and plan. (5) CAD (coronary artery disease) Current Visit: Yes Status: Chronic Assessment and plan: Currently asymptomatic. Qualifiers: Coronary Disease-Associated Artery/Lesion type: [place] artery [place] vs. transplanted heart: [place] heart Associated angina: without angina Qualified Code(s): I25.10 - Atherosclerotic heart disease of [place] coronary artery without angina pectoris (6) Arthritis of left knee Current Visit: Yes Status: Chronic Assessment and plan: Placed on Oxycontin and appears to be using less breakthrough meds. Plan for d/c to swing bed. Make arrangements for clearance for surgery in the future. - Subjective Interval history: Ms. Bustos is currently admitted for acute GI bleed and v fib arrest presumed due to hypomagnesemia. She currently has active C diff. She remains high risk due to persistent hypomagnesemia and risk for cardiac compromise. Ms. Bustos is resting comfortably. She had IVC filter placed yesterday without incident. She appears to be usiing less IV Morphine (last dose was 03/12) and PO Percocet (3 doses yesterday compared to 5 previous days). Daughters here last night and updated on plan. - Constitutional Vitals: Temp Pulse Resp BP Pulse Ox 98.7 F 100 15 116/71 94 03/15/17 10:50 03/15/17 10:50 03/15/17 10:50 03/15/17 10:50 03/15/17 10:50 General appearance: Present: A&O X 3, pleasant, answers questions appropriately - Head Head exam: Present: normocephalic - Eye Eye exam: Present: conjuntiva pink - ENT ENT exam: Present: mucous membranes dry - Respiratory Respiratory exam: Present: decreased breath sounds, CTAB - Cardiovascular Cardiovascular exam: Present: RRR. Absent: tachycardia - GI/Abdominal GI/Abdominal exam: Present: soft. Absent: tenderness - Extremities Exam Extremities exam: Present: joint swelling, warm. Absent: tenderness Additional comments: Persistent swelling L knee. - Neurological Exam Neurological exam: Present: alert, oriented X3, no focal deficits - Psychiatric Psychiatric exam: Present: normal affect, normal mood - Skin Skin exam: Present: warm. Absent: rash Internal Medicine: Result - Labs CBC & Chem 7: 03/15/17 04:44 03/15/17 04:44 Labs: Short CBC 03/15/17 Range/Units 04:44 WBC 6.6 (4.3-11.1) K/mcL Hgb 9.7 L (11.5-15.4) g/dL Hct 30.0 L (35.3-44.9) % Plt Count 279 (140-400) K/mcL [facility] 03/15/17 04:44 Sodium 135 L Potassium 4.2 Chloride 102 Carbon Dioxide 29 BUN 7 Creatinine 0.54 L Glucose 94 Calcium 9.3 - ABG Interpretation ABG results: ABG ABG pH 7.51 pH Units (7.32-7.45) H 02/28/17 04:45 ABG pCO2 30 mmHg (35-45) L 02/28/17 04:45 ABG pO2 111 mmHg (85-104) H 02/28/17 04:45 ABG O2 Saturation 99 % (95-98) H 02/28/17 04:45 - VTE Documentation of Mechanical Device: Intermittent pneumatic compression device Consult Discharge Plan - Plan Instructions: Coronary Artery Disease (DC), Coronary Artery Disease (GEN), Urinary Tract Infection in Women (DC), Clostridium Difficile Infection (DC), Hypomagnesemia (DC), Hypomagnesemia (GEN), Anemia (GEN), Coronary Artery Disease in Women, Vp Director Of Finance (GEN) Referrals: Leno Dickson MD [Partnered Physician] - 03/11/17 1:30 pm Moreno Lara Jr, MD [Primary Care Provider] - 03/19/17 10:00 am
[2017-03-15] MEDS: Fluconazole 100 MG TABLET PO ONE ×2 (14:54→14:55)
[2017-03-15] MEDS: *HR* LORazepam 0.5 MG TABLET PO PRN (23:40)
[2017-03-16] MEDS: *HR* OxyCODONE ER (12 HR) 20 MG TABLET PO SCH ×2 (05:17→17:36)
[2017-03-16 06:11] LABS: BUN/Creatinine Ratio 13 (6-26); Blood Urea Nitrogen 7 mg/dL (7-20); Calcium 9.2 mg/dL (8.6-10.8); Carbon Dioxide 26 mEq/L (19-29); Chloride 101 mEq/L (98-109); Glucose 82 mg/dL (70-99); Magnesium 1.5 mg/dL (1.6-2.6); Osmolality,Calculated 277 (280-300); Potassium 4.3 mEq/L (3.5-4.5); Sodium 135 mEq/L (136-145); eGFR For African Americans > 60 (> 60); eGFR For Non-African Americans > 60 (> 60)
[2017-03-16] MEDS: metroNIDAZOLE 500 MG TABLET PO SCH ×3 (06:54→22:08)
[2017-03-16] MEDS: Sucralfate 1 GM TABLET PO SCH ×3 (08:59→22:08)
[2017-03-16] MEDS: Magnesium Oxide 400 MG TABLET PO SCH ×3 (08:59→22:08)
[2017-03-16] MEDS: Metoprolol XL (24 HR) Succ 25 MG TAB.ER.24H PO SCH (08:59)
[2017-03-16] MEDS ORDERED: MOM Conc 10 ML UD.LIQ PO PRN (09:05)
[2017-03-16] MEDS: *HR* OxyCODONE/APAP 7.5/325 TABLET PO PRN (09:13)
--- NOTE | 2017-03-16 11:07 | Internal Med Progress Note ---
Date of Encounter: 03/16/17 Time of Encounter: 08:30 - Assessment and plan (1) Saphenous vein clot Current Visit: Yes Status: Acute Assessment and plan: S/P IVC filter. Doing well post procedure. Qualifiers: Laterality: right Qualified Code(s): I82.811 - Embolism and thrombosis of superficial veins of right lower extremities (2) C. difficile diarrhea Current Visit: Yes Status: Acute Assessment and plan: Completing course of Flagyl. Diarrhea has improved. In fact she feels constipated so will add Colace and PRN MOM (3) Anemia Current Visit: Yes Status: Acute Assessment and plan: H/H has remained stable. Qualifiers: Anemia type: other cause Other causes of anemia: acute posthemorrhagic Qualified Code(s): D62 - Acute posthemorrhagic anemia (4) Hypomagnesemia Current Visit: Yes Status: Acute Assessment and plan: Persists. Appreciate renal input and plan. (5) CAD (coronary artery disease) Current Visit: Yes Status: Chronic Assessment and plan: Currently asymptomatic. Qualifiers: Coronary Disease-Associated Artery/Lesion type: [place] artery [place] vs. transplanted heart: [place] heart Associated angina: without angina Qualified Code(s): I25.10 - Atherosclerotic heart disease of [place] coronary artery without angina pectoris (6) Arthritis of left knee Current Visit: Yes Status: Chronic Assessment and plan: Placed on Oxycontin and continues to use less breakthrough meds. Will need clearance prior to any surgery in future. (7) Anxiety about health Current Visit: Yes Status: Acute Assessment and plan: Worried about going to facility and pain control. PRN Ativan ordered. - Subjective Interval history: Ms. Bustos is currently admitted for acute GI bleed and v fib arrest presumed due to hypomagnesemia. She remains moderate to high risk due to persistent hypomagnesemia and risk for cardiac compromise. Ms. Bustos feels OK today. She is very anxious today. She is worried about going to [place]. She doesn't want cain removed as she feels she cannot get up and use toilet and doesn't want to "wet herself." Pain is better controlled with PO Oxycontin. She hasn't used morphine since 03/12. Passing gas but no BM recently. No abd pain. - Constitutional Vitals: Temp Pulse Resp BP Pulse Ox 98.1 F 74 18 91/62 97 03/16/17 05:05 03/16/17 08:00 03/16/17 08:00 03/16/17 08:00 03/16/17 08:00 General appearance: Present: A&O X 3, pleasant, answers questions appropriately - Head Head exam: Present: normocephalic - Eye Eye exam: Present: conjuntiva pink - ENT ENT exam: Present: mucous membranes dry - Respiratory Respiratory exam: Present: decreased breath sounds, CTAB. Absent: rales, rhonchi, wheezes - Cardiovascular Cardiovascular exam: Present: RRR. Absent: tachycardia - GI/Abdominal GI/Abdominal exam: Present: soft. Absent: tenderness - Extremities Exam Extremities exam: Present: tenderness, warm. Absent: pedal edema - Neurological Exam Neurological exam: Present: alert, oriented X3, no focal deficits - Psychiatric Psychiatric exam: Present: anxious - Skin Skin exam: Present: dry, warm. Absent: rash Internal Medicine: Result - Labs CBC & Chem 7: 03/15/17 04:44 03/16/17 04:41 Labs: BMP 03/16/17 04:41 Sodium 135 L Potassium 4.3 Chloride 101 Carbon Dioxide 26 BUN 7 Creatinine 0.54 L Glucose 82 Calcium 9.2 - ABG Interpretation ABG results: ABG ABG pH 7.51 pH Units (7.32-7.45) H 02/28/17 04:45 ABG pCO2 30 mmHg (35-45) L 02/28/17 04:45 ABG pO2 111 mmHg (85-104) H 02/28/17 04:45 ABG O2 Saturation 99 % (95-98) H 02/28/17 04:45 - VTE Documentation of Mechanical Device: Intermittent pneumatic compression device Consult Discharge Plan - Plan Instructions: Coronary Artery Disease (DC), Coronary Artery Disease (GEN), Urinary Tract Infection in Women (DC), Clostridium Difficile Infection (DC), Hypomagnesemia (DC), Hypomagnesemia (GEN), Anemia (GEN), Coronary Artery Disease in Women, 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
--- NOTE | 2017-03-16 12:22 | Nephrology Progress Note ---
Date of Encounter: 03/16/17 Time of Encounter: 12:20 - Assessment and Plan (1) Hypomagnesemia Current Visit: Yes Status: Acute Will check a 24 hour urine for magnesium. She is currently stable on oral magnesium. Patient may benefit by the use of amiloride. She will need to follow-up with [facility] after discharge. Subjective Principal diagnosis: VFib Arrest, Hypomagnesemia Interval history: Patient is asleep. Resting comfortably. Objective - Vital Signs Vital signs: Vital Signs Temp Pulse Resp BP Pulse Ox 03/16/17 08:00 74 18 91/62 97 03/16/17 05:05 98.1 F 100 16 112/65 95 03/15/17 23:42 98 F 100 18 117/89 96 03/15/17 21:21 97.0 F L 93 16 118/64 96 03/15/17 15:04 99.0 F 97 16 101/59 96 Intake and Output 03/15/17 03/16/17 03/16/17 23:59 07:59 15:59 Intake Total 200 / 200 120 / 120 Output Total 400 / 400 Balance -200 / -200 120 / 120 Intake: Oral 200 / 200 120 / 120 Output: Catheter 400 / 400 Other: Meal Breakfast Percent of Meal Consumed 20% - General Appearance General appearance: Present: well-developed, well-nourished EENT: Present: ATNC Additional Comments: respirations are unlabored. Cardiology: Present: regular rate - Lab 03/15/17 04:44 03/16/17 04:41 Most recent lab results ABG pH 7.51 pH Units (7.32-7.45) H 02/28/17 04:45 ABG pCO2 30 mmHg (35-45) L 02/28/17 04:45 ABG pO2 111 mmHg (85-104) H 02/28/17 04:45 ABG HCO3 23.9 mEQ/L (21-27) 02/28/17 04:45 ABG O2 Saturation 99 % (95-98) H 02/28/17 04:45 Calcium 9.2 mg/dL (8.6-10.8) 03/16/17 04:41 Phosphorus 2.3 mg/dL (2.3-4.7) 03/02/17 05:55 Magnesium 1.5 mg/dL (1.6-2.6) L 03/16/17 04:41 Urine Creatinine 98 mg/dL 03/13/17 18:15 - VTE Documentation of Mechanical Device: Intermittent pneumatic compression device Consult Discharge Plan - Plan Instructions: Coronary Artery Disease (DC), Coronary Artery Disease (GEN), Urinary Tract Infection in Women (DC), Clostridium Difficile Infection (DC), Hypomagnesemia (DC), Hypomagnesemia (GEN), Anemia (GEN), Coronary Artery Disease in Women, 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
[2017-03-17] MEDS: *HR* OxyCODONE/APAP 7.5/325 TABLET PO PRN ×4 (04:04→23:54)
[2017-03-17 05:21] LABS: BUN/Creatinine Ratio 12 (6-26); Blood Urea Nitrogen 6 mg/dL (7-20); Calcium 9.3 mg/dL (8.6-10.8); Carbon Dioxide 24 mEq/L (19-29); Chloride 102 mEq/L (98-109); Glucose 102 mg/dL (70-99); Magnesium 1.6 mg/dL (1.6-2.6); Osmolality,Calculated 276 (280-300); Potassium 4.4 mEq/L (3.5-4.5); Sodium 134 mEq/L (136-145); eGFR For African Americans > 60 (> 60); eGFR For Non-African Americans > 60 (> 60)
[2017-03-17] MEDS: metroNIDAZOLE 500 MG TABLET PO SCH ×3 (06:34→23:55)
[2017-03-17] MEDS: *HR* OxyCODONE ER (12 HR) 20 MG TABLET PO SCH ×2 (06:34→18:32)
[2017-03-17 10:14] LABS: Total Volume 24 Hour,Urine 2.01 Liters (0.60-1.60)
[2017-03-17] MEDS: Magnesium Oxide 400 MG TABLET PO SCH ×3 (11:05→20:59)
[2017-03-17] MEDS: Sucralfate 1 GM TABLET PO SCH ×3 (11:05→20:59)
[2017-03-17] MEDS: Metoprolol XL (24 HR) Succ 25 MG TAB.ER.24H PO SCH (11:05)
[2017-03-17 12:56] LABS: Creatinine 24 Hour,Urine 0.62 g/day (0.71-1.65)
--- NOTE | 2017-03-17 13:22 | Nephrology Progress Note ---
<Laureano Onofre - Last Filed: 03/17/17 14:35> Date of Encounter: 03/17/17 Time of Encounter: 08:50 - Assessment and Plan (1) Hypomagnesemia Status: Acute Patient magnesium sulfate 1.6 today, patient continued receive oral supplementation of 500 mg 3 times a day with apparent stabilization of patient magnesium. Last performed on 03/10 indicate patient has a fractional excretion of magnesium of 2.5%, which is just possible renal wasting of magnesium. Wait for repeat of 24 hour urine magnesium Possibly benefit from addition of potassium and magnesium sparing diuretic, like amiloride She will need to follow-up with [facility] after discharge. (2) C. difficile diarrhea Status: Acute Care per primary team Subjective Principal diagnosis: VFib Arrest, Hypomagnesemia Interval history: Patient reports having continued pain in her left knee. Otherwise, patient has no complaints. Objective - Vital Signs Vital signs: Vital Signs Temp Pulse Resp BP Pulse Ox 03/17/17 12:49 95 18 102/66 96 03/17/17 08:00 98.7 F 91 16 101/72 96 03/17/17 04:12 98.3 F 98 14 98/63 94 03/16/17 19:00 98.6 F 95 16 98/59 95 03/16/17 16:00 93 16 100/62 94 Intake and Output 03/16/17 03/17/17 03/17/17 23:59 07:59 15:59 Intake Total 240 / 240 Balance 240 / 240 Intake: Oral 240 / 240 Other: Meal Breakfast Percent of Meal Consumed 100% Weight 66.6 kg Patient Weight 03/17/17 23:59 Weight 66.6 kg - General Appearance General appearance: Present: well-developed, well-nourished, appears started age EENT: Present: ATNC, PERRL, mucous membranes moist, hearing intact Respiratory: Present: clear. Absent: wheezing, rales, rhonchi Cardiology: Present: mid-systolic murmur, no rub, no gallops, no edema, regular rate, regular rhythm, normal S1, normal S2 Gastrointestinal: Present: normoactive bowel sounds, no tenderness Integumentary: Present: no rash, warm and dry Neurologic: Present: no focal deficit, no asterixis Musculoskeletal: Present: deformities (Patient's left knee appears swollen), no erythema, no cyanosis, no clubbing. Absent: warmth Psychiatric: Present: mood/affect appropriate, cooperative - Lab 03/15/17 04:44 03/17/17 04:32 Most recent lab results ABG pH 7.51 pH Units (7.32-7.45) H 02/28/17 04:45 ABG pCO2 30 mmHg (35-45) L 02/28/17 04:45 ABG pO2 111 mmHg (85-104) H 02/28/17 04:45 ABG HCO3 23.9 mEQ/L (21-27) 02/28/17 04:45 ABG O2 Saturation 99 % (95-98) H 02/28/17 04:45 Calcium 9.3 mg/dL (8.6-10.8) 03/17/17 04:32 Phosphorus 2.3 mg/dL (2.3-4.7) 03/02/17 05:55 Magnesium 1.6 mg/dL (1.6-2.6) 03/17/17 04:32 Urine Creatinine 31 mg/dL 03/16/17 19:00 - VTE Documentation of Mechanical Device: Intermittent pneumatic compression device Consult Discharge Plan - Plan Instructions: Coronary Artery Disease (DC), Coronary Artery Disease (GEN), Urinary Tract Infection in Women (DC), Clostridium Difficile Infection (DC), Hypomagnesemia (DC), Hypomagnesemia (GEN), Anemia (GEN), Coronary Artery Disease in Women, 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 Matthews for further L total knee replacement. Pt will need follow up appointment with cardiology for clearance work up for future L total knee surgery. Referrals: Leno Dickson MD [Partnered Physician] - 03/11/17 1:30 pm Moreno Lara Jr, MD [Primary Care Provider] - 03/19/17 10:00 am Prescriptions: OxyCODONE/APAP 7.5/325 [Percocet 7.5/325 MG] 1 each PO Q3HR PRN #12 tablet PRN Reason: Moderate Pain OxyCODONE ER (12 HR) [OxyCONTIN] 20 mg PO Q12HR #6 tab.er.12h <Ayala Armas - Last Filed: 03/27/17 15:58> Date of Encounter: 03/17/17 Objective - Lab 03/15/17 04:44 03/18/17 05:32 Most recent lab results ABG pH 7.51 pH Units (7.32-7.45) H 02/28/17 04:45 ABG pCO2 30 mmHg (35-45) L 02/28/17 04:45 ABG pO2 111 mmHg (85-104) H 02/28/17 04:45 ABG HCO3 23.9 mEQ/L (21-27) 02/28/17 04:45 ABG O2 Saturation 99 % (95-98) H 02/28/17 04:45 Calcium 9.3 mg/dL (8.6-10.8) 03/18/17 05:32 Phosphorus 2.3 mg/dL (2.3-4.7) 03/02/17 05:55 Magnesium 1.6 mg/dL (1.6-2.6) 03/18/17 05:32 Urine Creatinine 31 mg/dL 03/16/17 19:00 - Attending Attestation I examined this patient and my medical decision-making was reviewed with the VISUAL MERCHANDISING DIRECTOR/PA/Advanced Practice Nurse/Resident Physician. I agree with the documented findings, disposition and treatment plan as described except to the extent set forth below. Pt seen and examined with hypomagnesemia which appears to be stabilizing, will continue current regimen.
--- NOTE | 2017-03-17 18:41 | Internal Med Progress Note ---
Date of Encounter: 03/17/17 Time of Encounter: 16:30 - Assessment and plan (1) Saphenous vein clot Current Visit: Yes Status: Acute Assessment and plan: S/P IVC filter. Doing well post procedure. Qualifiers: Laterality: right Qualified Code(s): I82.811 - Embolism and thrombosis of superficial veins of right lower extremities (2) C. difficile diarrhea Current Visit: Yes Status: Acute Assessment and plan: Completing course of Flagyl. Diarrhea has improved. (3) Anemia Current Visit: Yes Status: Acute Assessment and plan: H/H has remained stable. Qualifiers: Anemia type: other cause Other causes of anemia: acute posthemorrhagic Qualified Code(s): D62 - Acute posthemorrhagic anemia (4) Hypomagnesemia Current Visit: Yes Status: Acute Assessment and plan: Persists. Appreciate renal input and plan. (5) CAD (coronary artery disease) Current Visit: Yes Status: Chronic Assessment and plan: Currently asymptomatic. Qualifiers: Coronary Disease-Associated Artery/Lesion type: [place] artery [place] vs. transplanted heart: [place] heart Associated angina: without angina Qualified Code(s): I25.10 - Atherosclerotic heart disease of [place] coronary artery without angina pectoris (6) Arthritis of left knee Current Visit: Yes Status: Chronic Assessment and plan: Placed on Oxycontin and continues to use less breakthrough meds. Will need clearance prior to any surgery in future. (7) Anxiety about health Current Visit: Yes Status: Acute Assessment and plan: Worried about going to facility and pain control. PRN Ativan ordered. - Subjective Interval history: Ms. Bustos is currently admitted for acute GI bleed and v fib arrest presumed due to hypomagnesemia. She remains moderate to high risk due to persistent hypomagnesemia and risk for cardiac compromise. Ms. Bustos is doing OK. She is awaiting placement to [place]. No new medical issues. - Constitutional Vitals: Temp Pulse Resp BP Pulse Ox 98 F 101 18 98/67 95 03/17/17 16:49 03/17/17 16:49 03/17/17 16:49 03/17/17 16:49 03/17/17 16:49 General appearance: Present: A&O X 3, pleasant, answers questions appropriately - Head Head exam: Present: normocephalic - Eye Eye exam: Present: conjuntiva pink - ENT ENT exam: Present: mucous membranes dry - Respiratory Respiratory exam: Present: decreased breath sounds, CTAB - Cardiovascular Cardiovascular exam: Present: RRR. Absent: tachycardia - GI/Abdominal GI/Abdominal exam: Present: soft. Absent: tenderness - Extremities Exam Extremities exam: Present: warm. Absent: pedal edema - Neurological Exam Neurological exam: Present: alert, oriented X3 - Skin Skin exam: Present: warm. Absent: rash Internal Medicine: Result - Labs CBC & Chem 7: 03/15/17 04:44 03/17/17 04:32 Labs: BMP 03/17/17 04:32 Sodium 134 L Potassium 4.4 Chloride 102 Carbon Dioxide 24 BUN 6 L Creatinine 0.52 L Glucose 102 H Calcium 9.3 - ABG Interpretation ABG results: ABG ABG pH 7.51 pH Units (7.32-7.45) H 02/28/17 04:45 ABG pCO2 30 mmHg (35-45) L 02/28/17 04:45 ABG pO2 111 mmHg (85-104) H 02/28/17 04:45 ABG O2 Saturation 99 % (95-98) H 02/28/17 04:45 - VTE Documentation of Mechanical Device: Intermittent pneumatic compression device Consult Discharge Plan - Plan Instructions: Coronary Artery Disease (DC), Coronary Artery Disease (GEN), Urinary Tract Infection in Women (DC), Clostridium Difficile Infection (DC), Hypomagnesemia (DC), Hypomagnesemia (GEN), Anemia (GEN), Coronary Artery Disease in Women, Adviser Sales (GEN) Referrals: Leno Dickson MD [Partnered Physician] - 03/11/17 1:30 pm Moreno Lara Jr, MD [Primary Care Provider] - 03/19/17 10:00 am
[2017-03-18] MEDS: *HR* OxyCODONE/APAP 7.5/325 TABLET PO PRN ×3 (03:35→13:52)
[2017-03-18] MEDS: *HR* OxyCODONE ER (12 HR) 20 MG TABLET PO SCH (05:54)
[2017-03-18 06:13] LABS: BUN/Creatinine Ratio 12 (6-26); Blood Urea Nitrogen 7 mg/dL (7-20); Calcium 9.3 mg/dL (8.6-10.8); Carbon Dioxide 28 mEq/L (19-29); Chloride 101 mEq/L (98-109); Glucose 119 mg/dL (70-99); Magnesium 1.6 mg/dL (1.6-2.6); Osmolality,Calculated 279 (280-300); Potassium 4.2 mEq/L (3.5-4.5); Sodium 135 mEq/L (136-145); eGFR For African Americans > 60 (> 60); eGFR For Non-African Americans > 60 (> 60)
[2017-03-18 07:35] VITALS: BP 97/65
[2017-03-18] MEDS: Magnesium Oxide 400 MG TABLET PO SCH (09:35)
[2017-03-18] MEDS: Metoprolol XL (24 HR) Succ 25 MG TAB.ER.24H PO SCH (09:35)
[2017-03-18] MEDS: metroNIDAZOLE 500 MG TABLET PO SCH (09:36)
[2017-03-18] MEDS: Sucralfate 1 GM TABLET PO SCH (09:40)
--- NOTE | 2017-03-18 10:10 | Discharge Summary ---
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 difficile diarrhea Priority: Secondary Status: Acute (6) Anemia Priority: Secondary Status: Acute Qualifiers: Anemia type: other cause Other causes of anemia: acute posthemorrhagic Qualified Code(s): D62 - Acute posthemorrhagic anemia (7) CAD (coronary artery disease) Priority: Secondary Status: Chronic Qualifiers: Coronary Disease-Associated Artery/Lesion type: [place] artery [place] vs. transplanted heart: [place] heart Associated angina: without angina Qualified Code(s): I25.10 - Atherosclerotic heart disease of [place] coronary artery without angina pectoris (8) Arthritis of left knee Priority: Secondary Status: Chronic (9) Anxiety about health Priority: Secondary Status: Acute (10) Hypokalemia Priority: Secondary Status: Resolved (11) GI bleed Priority: Secondary Status: Resolved Qualifiers: GI bleed type/associated pathology: melena Qualified Code(s): K92.1 - Melena (12) Duodenal ulcer, acute Priority: Secondary Status: Acute - Discharge Medications Prescriptions: OxyCODONE/APAP 7.5/325 [Percocet 7.5/325 MG] 1 each PO Q3HR PRN #12 tablet PRN Reason: Moderate Pain OxyCODONE ER (12 HR) [OxyCONTIN] 20 mg PO Q12HR #6 tab.er.12h Home Medications: Multivitamin [Multivitamins] 1 tab PO DAILY 10/14/16 [History] Simvastatin [Zocor] 40 mg PO HS 10/14/16 [History] Diclofenac Sodium [Voltaren] 4 gm TP QID PRN 02/27/17 [History] LORazepam [Ativan] 0.5 mg PO TID PRN 02/27/17 [History] Docusate [Colace] 100 mg PO BID capsule 03/18/17 [Rx] MOM Conc [MILK OF MAGNESIA conc] 10 ml PO DAILY PRN #0 ud.liq 03/18/17 [Rx] Magnesium Oxide [Mag-Ox] 400 mg PO TID tablet 03/18/17 [Rx] Metoprolol XL (24 HR) Succ [Toprol Xl] 12.5 mg PO DAILY tab.er.24h 03/18/17 [Rx ] MetroNIDAZOLE [Flagyl] 500 mg PO Q8H tablet 03/18/17 [Rx] Omeprazole [PriLOSEC] 20 mg PO BIDAC capsule. 03/18/17 [Rx] OxyCODONE ER (12 HR) [OxyCONTIN] 20 mg PO Q12HR #6 tab.er.12h 03/18/17 [Rx] OxyCODONE/APAP 7.5/325 [Percocet 7.5/325 MG] 1 each PO Q3HR PRN #12 tablet 03/18 [Rx] Potassium Chloride 20 meq PO DAILY tab.er.prt 03/18/17 [Rx] Sucralfate [Carafate] 1 gm PO TID tablet 03/18/17 [Rx] Allergies/Adverse Reactions: Allergies No Known Allergies Allergy (Verified 10/14/16 07:21) Date of admission: 02/28/17 08:23 Primary care physician: oMreno Lara Jr, MD Consults: 02/28/17 09:54 Consult to Cardiology [CONS] Routine Comment: Consulting Provider: Cardiology Brandy Reason for Consult: s/p cardiac arrest, v-fib, torsades, hx of CAD and stent placement 20 yrs ago Time Notified: 09:54 Call Completed: Yes 03/02/17 12:09 Consult to Gastroenterology [CONS] Routine Consulting Provider: Gastroenterology Brandy Reason for Consult: Stool Occult positive Call Completed: Yes 03/03/17 11:39 Consult to Payment Specialist [CONS] Routine Reason for SW Consult: Pt would like to go to [facility] bed at discharge. 03/03/17 18:50 Consult to Orthopedic Surgery [CONS] Routine Consulting Provider: Toney Wang Reason for Consult: Left knee pain Call Completed: Yes 03/05/17 13:25 Consult to Occupational Therapy [CONS] Routine Comment: Evaluate, develop and implement POC Consult to Physical Therapy [CONS] Routine Comment: Evaluate, develop and implement POC 03/12/17 14:38 Consult to Nephrology [CONS] Routine Consulting Provider: Kidney Brandy/PIOTR/SANDY/LUZ MARINA Reason for Consult: Persistent hypomagnesemia Time Notified: 12:00 Call Completed: Yes 03/14/17 10:17 Consult to Vascular Surgery [CONS] Routine Consulting Provider: Vascular Surgery Brandy Reason for Consult: GSV thrombus Time Notified: 08:45 Call Completed: Yes Discharging clinician: Hector Nickerson Anticipated date of discharge: 03/18/17 - Patient Status Disposition: Transfer Hospital Swing Bed Condition: Fair Functional capacity at discharge: uses cane/walker Overall status at discharge: patient is progressing back to baseline - Discharge Instructions Instructions: Coronary Artery Disease (DC), Coronary Artery Disease (GEN), Urinary Tract Infection in Women (DC), Clostridium Difficile Infection (DC), Hypomagnesemia (DC), Hypomagnesemia (GEN), Anemia (GEN), Coronary Artery Disease in Women, Manager Floral (GEN) Follow Up With: Leno Dickson MD [Partnered Physician] - 03/11/17 1:30 pm Moreno Lara Jr, MD [Primary Care Provider] - 03/19/17 10:00 am Additional Instructions: Pt will need new patient appointment with Dr. Matthews for further L total knee replacement. Pt will need follow up appointment with cardiology for clearance work up for future L total knee surgery. - Diet and Activity Activity: as per physical therapy Diet: advance to your usual diet Hospital course: Ms. Bustos is a 86 year old female who presented to hospital due to UTI. She was to have L knee replacement at [place] and found to have UTI on preop testing. Ms. Bustos was admitted to [facility]. She had acute v fib arrest which was thought due to hypomagnesemia. She was taken to ICU and successfully extubated. She was managed in ICU and was found to have acute C diff. She was anemic and EGD revealed nonbleeding duodenal ulcer. She was transferred from ICU to [facility]. She continued to have hypomagnesemia and received both oral and IV magnesium. She received IV Flagyl for C diff. She had issues with pain control and discussions occurred regarding her having her knee surgery this admission. It was explained to her that she would not be medically cleared for surgery for many months. Pain medications were adjusted and ultimately she was doing well with Oxycontin 20mg BID and Percocet breakthrough. She was to complete 10 days of Flagyl. She was reluctant to have cain removed and was sent out with it in place to be removed at [place]. She also had surveillance screening of her legs and was found to have greater saphenous vein clot on R. Due to anemia, GI bleed, duodenal ulcer and high risk for rebleeding, an IVC filter was placed. On 03/18/17 she was doing well. Pain was controlled. She was afebrile and vitals were stable. At that point she was discharged to [place]. - Time Spent with Patient Total time spent providing and/or coordinating discharge services: 45min - Constitutional Vitals: Temp Pulse Resp BP Pulse Ox 98.4 F 97 16 97/65 97 03/18/17 07:00 03/18/17 07:00 03/18/17 07:00 03/18/17 07:00 03/18/17 07:00 General appearance: Present: A&O X 3, pleasant, answers questions appropriately - Head Head exam: Present: normocephalic - Eye Eye exam: Present: conjuntiva pink - ENT ENT exam: Present: mucous membranes dry - Respiratory Respiratory exam: Present: decreased breath sounds, CTAB - Cardiovascular Cardiovascular exam: Present: RRR. Absent: tachycardia - GI/Abdominal GI/Abdominal exam: Present: soft. Absent: tenderness - Extremities Exam Extremities exam: Present: tenderness, warm - Neurological Exam Neurological exam: Present: alert, oriented X3 - Psychiatric Psychiatric exam: Present: normal affect, normal mood - Skin Skin exam: Present: warm. Absent: rash - VTE Documentation of Mechanical Device: Intermittent pneumatic compression device
--- NOTE | 2017-03-18 10:22 | Physician Discharge Referral ---
ExtendedCare Referral Info Transfer To: [facility] Provider in Charge: Hector Nickerson DO Provider in Charge after Transfer: PCP Institutional Level of Care: Skilled - Diagnosis (1) Ventricular fibrillation Priority: Primary Status: Resolved (2) Hypomagnesemia Priority: Primary Status: Acute (3) Urinary tract infection Priority: Primary Status: Resolved (4) Saphenous vein clot Priority: Secondary Status: Acute (5) C. difficile diarrhea Priority: Secondary Status: Acute (6) Anemia Priority: Secondary Status: Acute (7) CAD (coronary artery disease) Priority: Secondary Status: Chronic (8) Arthritis of left knee Priority: Secondary Status: Chronic (9) Anxiety about health Priority: Secondary Status: Acute (10) Hypokalemia Priority: Secondary Status: Resolved (11) GI bleed Priority: Secondary Status: Resolved (12) Duodenal ulcer, acute Priority: Secondary Status: Acute Expected Duration of Placement: Less than 30 days Prognosis: Good Aware of Diagnosis: Patient, Family Aware of Prognosis: Patient, Family - Transfer Medications Prescriptions: OxyCODONE/APAP 7.5/325 [Percocet 7.5/325 MG] 1 each PO Q3HR PRN #12 tablet PRN Reason: Moderate Pain OxyCODONE ER (12 HR) [OxyCONTIN] 20 mg PO Q12HR #6 tab.er.12h Home Medications: Multivitamin [Multivitamins] 1 tab PO DAILY 10/14/16 [History] Simvastatin [Zocor] 40 mg PO HS 10/14/16 [History] Diclofenac Sodium [Voltaren] 4 gm TP QID PRN 02/27/17 [History] LORazepam [Ativan] 0.5 mg PO TID PRN 02/27/17 [History] Docusate [Colace] 100 mg PO BID capsule 03/18/17 [Rx] MOM Conc [MILK OF MAGNESIA conc] 10 ml PO DAILY PRN #0 ud.liq 03/18/17 [Rx] Magnesium Oxide [Mag-Ox] 400 mg PO TID tablet 03/18/17 [Rx] Metoprolol XL (24 HR) Succ [Toprol Xl] 12.5 mg PO DAILY tab.er.24h 03/18/17 [Rx ] MetroNIDAZOLE [Flagyl] 500 mg PO Q8H tablet 03/18/17 [Rx] Omeprazole [PriLOSEC] 20 mg PO BIDAC capsule. 03/18/17 [Rx] OxyCODONE ER (12 HR) [OxyCONTIN] 20 mg PO Q12HR #6 tab.er.12h 03/18/17 [Rx] OxyCODONE/APAP 7.5/325 [Percocet 7.5/325 MG] 1 each PO Q3HR PRN #12 tablet 03/18 [Rx] Potassium Chloride 20 meq PO DAILY tab.er.prt 03/18/17 [Rx] Sucralfate [Carafate] 1 gm PO TID tablet 03/18/17 [Rx] Allergies/Adverse Reactions: Allergies No Known Allergies Allergy (Verified 10/14/16 07:21) - Respiratory Orders Smoking Cessation: Smoking cessation has been advised. For more information, call the [employer] Tobacco Quit Line at 5-240-PQWZ-NOW. - Lab Orders Lab Orders: 2 Step Mantoux Test per State regulation - Ancillary Orders May use pressure relief devices daily prn, May go on JAICNTA w/family/respon alliance party w /meds at nurse discretion PRN, May consult with Dentist, Blade Aligner, Sales Representative Business Courses PRN - Advance Directives Code Status: Full Code - History and Physical History/Physical reviewed & approved w/add comments: Pt with significant L knee OA - Mobility Orders Ambulate - Rehabiliation Orders Rehab Potential: Fair Rehab Orders: Evaluation for Physical Therapy, Evaluation for Occupational Therapy - Treatments Skin tear care topically daily PRN per policy, May check for fecal impaction rectally daily PRN, Fleet enema rectally every other day PRN cleansing purposes - Diet Orders Cardiac CERTIFICATION: I certify that the transfer of the above named patient to an Extended Care Facility is necessary for the continuing treatment of the diagnosis listed. The above information is true and accurate reflection of patient's current condition. Confidential - Redisclosure prohibited without a patient's written consent.
[2017-03-18] MEDS: *HR* LORazepam 0.5 MG TABLET PO PRN (11:45)
--- NOTE | 2017-03-18 13:13 | Nephrology Progress Note ---
<Laureano Onofre - Last Filed: 03/18/17 14:05> Date of Encounter: 03/18/17 Time of Encounter: 09:45 - Assessment and Plan (1) Hypomagnesemia Status: Acute Patient magnesium sulfate 1.6 again today, patient continued receive oral supplementation of 500 mg 3 times a day appears to keep patient magnesium stable. Last performed on 03/10 indicate patient has a fractional excretion of magnesium of 2.5%, which is just possible renal wasting of magnesium. Continued 3 times a day dosing of by mouth magnesium Possibly benefit from addition of potassium and magnesium sparing diuretic, like amiloride She will need to follow-up with [facility] after discharge. (2) C. difficile diarrhea Status: Acute Care per primary team Subjective Principal diagnosis: VFib Arrest, Hypomagnesemia Interval history: Patient has no concerns/complaints this morning other than the continued pain in her left knee. Objective - Vital Signs Vital signs: Vital Signs Temp Pulse Resp BP Pulse Ox 03/18/17 07:00 98.4 F 97 16 97/65 97 03/18/17 05:08 98.8 F 98 99 03/17/17 21:54 98.4 F 98 16 105/71 94 03/17/17 16:49 98 F 101 18 98/67 95 Intake and Output 03/17/17 03/18/17 03/18/17 23:59 07:59 15:59 Output Total 200 / 200 1000 / 1000 Balance -200 / -200 -1000 / -1000 Output: Urine 500 / 500 Urethral (Myers) 500 / 500 Catheter 200 / 200 500 / 500 Other: Weight 183 kg Patient Weight 03/18/17 23:59 Weight 183 kg - General Appearance Exam: General: Cooperative, pleasant, no acute distress, alert and oriented 3, answers questions appropriately Head: Normocephalic, atraumatic Eye: Conjunctiva pink, sclera anicteric, EOMI, PERRL Neck: Supple, trachea midline Respiratory: No accessory muscle usage, clear to auscultation bilaterally, no wheezes/rhonchi/rales appreciated Cardiovascular: Regular rate and rhythm, S1 and S2 present, systolic murmur appreciated GI/abdominal: Nondistended, nontender, soft, normal bowel sounds, no peritoneal signs Extremities: No calf tenderness, noncyanotic, +1 edema in left leg appreciated, left knee appears swollen, warm, lower extremity pulses palpable and symmetrical Neurological: Alert and oriented 3, no facial droop, no focal deficits Skin: Dry, intact, normal color - Lab 03/15/17 04:44 03/18/17 05:32 Most recent lab results ABG pH 7.51 pH Units (7.32-7.45) H 02/28/17 04:45 ABG pCO2 30 mmHg (35-45) L 02/28/17 04:45 ABG pO2 111 mmHg (85-104) H 02/28/17 04:45 ABG HCO3 23.9 mEQ/L (21-27) 02/28/17 04:45 ABG O2 Saturation 99 % (95-98) H 02/28/17 04:45 Calcium 9.3 mg/dL (8.6-10.8) 03/18/17 05:32 Phosphorus 2.3 mg/dL (2.3-4.7) 03/02/17 05:55 Magnesium 1.6 mg/dL (1.6-2.6) 03/18/17 05:32 Urine Creatinine 31 mg/dL 03/16/17 19:00 - VTE Documentation of Mechanical Device: Intermittent pneumatic compression device Consult Discharge Plan - Plan Instructions: Coronary Artery Disease (DC), Coronary Artery Disease (GEN), Urinary Tract Infection in Women (DC), Clostridium Difficile Infection (DC), Hypomagnesemia (DC), Hypomagnesemia (GEN), Anemia (GEN), Coronary Artery Disease in Women, [place] (GEN) Additional Instructions: Pt will need new patient appointment with Dr. Matthews for further L total knee replacement. Pt will need follow up appointment with cardiology for clearance work up for future L total knee surgery. Referrals: Leno Dickson MD [Partnered Physician] - 03/11/17 1:30 pm Moreno Lara Jr, MD [Primary Care Provider] - 03/19/17 10:00 am Prescriptions: OxyCODONE/APAP 7.5/325 [Percocet 7.5/325 MG] 1 each PO Q3HR PRN #12 tablet PRN Reason: Moderate Pain OxyCODONE ER (12 HR) [OxyCONTIN] 20 mg PO Q12HR #6 tab.er.12h <Ayala Armas - Last Filed: 03/27/17 16:00> Date of Encounter: 03/18/17 Objective - Lab 03/15/17 04:44 03/18/17 05:32 Most recent lab results ABG pH 7.51 pH Units (7.32-7.45) H 02/28/17 04:45 ABG pCO2 30 mmHg (35-45) L 02/28/17 04:45 ABG pO2 111 mmHg (85-104) H 02/28/17 04:45 ABG HCO3 23.9 mEQ/L (21-27) 02/28/17 04:45 ABG O2 Saturation 99 % (95-98) H 02/28/17 04:45 Calcium 9.3 mg/dL (8.6-10.8) 03/18/17 05:32 Phosphorus 2.3 mg/dL (2.3-4.7) 03/02/17 05:55 Magnesium 1.6 mg/dL (1.6-2.6) 03/18/17 05:32 Urine Creatinine 31 mg/dL 03/16/17 19:00 - Attending Attestation I examined this patient and my medical decision-making was reviewed with the POOL COORDINATOR/PA/Advanced Practice Nurse/Resident Physician. I agree with the documented findings, disposition and treatment plan as described except to the extent set forth below. Pt seen and examined eager to go to rehab at [facility] but concerned about magnesium levels which has been stable for the past 2 days oon current regimen. Would recommend weekly magnesium levels while at [place] and arjun with nephrology on outpatient
[2017-03-21 07:46] LABS: Urine Magnesium mg/dL 9.6 mg/dL
== END 2017-03-18 13:59 | disposition other institution (70) | DRG 628 ==
LOC: EMEROO 14:17 → 3ANU 14:17 → ICNU 02-28 00:21 → SUATTDRO 02-28 08:23 → 2NENU 03-01 12:13
PROVIDERS: ADMIT Hospitalist; ATTEND Internal Medicine

== ENCOUNTER 2017-04-16 08:34 | Inpatient (IN) ==
[2017-04-16] MEDS ORDERED: 0.9 % Sodium Chloride 1,000 ML ONE (09:57)
[2017-04-16] MEDS ORDERED: Nitroglycerin 1,000 MCG/10 ML VIAL IV ONE (09:58)
[2017-04-16] MEDS ORDERED: *HR* Heparin 10,000 UNIT/10 ML VIAL ONE (09:58)
[2017-04-16] MEDS ORDERED: Heparin 1,000 UNITS/500 mL NS 500 ML ONE ×2 (09:58→10:18)
--- NOTE | 2017-04-16 10:13 | Pre-Sedation Evaluation ---
Pre-sedation evaluation - Pre-sedation checklist Date of procedure: 04/16/17 Procedure: left and right heart cath Recent Vitals: Last Vital Signs Temp 97.2 F L 04/16/17 09:20 Pulse 87 04/16/17 09:20 Resp 17 04/16/17 09:20 BP 116/72 04/16/17 09:20 Pulse Ox 94 04/16/17 09:20 H&P (including ROS) documented in medical record: Yes Previous reaction to sedatives/anesthetics: No Dietary Status: NPO after Midnight Dentition: dentures removed ASA Classification *see protocol: CLASS II-Mild systemic disease Plan of Care: Pt appropriate candidate for procedure/moderate/conscious sedation , Risks/benefits of procedure/sedation discussed w/ patient/family
[2017-04-16] MEDS ORDERED: *HR* Midazolam HCl 2 MG/2 ML VIAL ONE ×2 (10:14→10:36)
[2017-04-16] MEDS ORDERED: *HR* FentaNYL (PF) 100 MCG/2 ML VIAL ONE (10:14)
--- NOTE | 2017-04-16 10:16 | History & Physical Report ---
Date of Encounter: 04/16/17 Time of Encounter: 10:15 24 Hour HP Update - Instructions Instructions: If the History and Physical is less than 30 days old and was completed prior to A.M. admission and or procedure and has NOT been updated on calendar day of procedure please complete this update prior to performing procedure. - Update Patient reports changes in Medical Condition: No Changes in examination, assessment, or condition: No Changes in Medication: No Preop tests/diagnostics Reviewed: Yes Surgery Remains Indicated: Yes Consent for Planned Operative Procedure(s) Verified: Yes
--- NOTE | 2017-04-16 12:22 | Invasive Diagnostic Lab Proc ---
Name: Jenni Bustos Date of Study: 04/16/2017 Date: 1930 Ht: 60.0in Medical Record#: [id number] Age: 86 Wt: 149.25lb Gender: Female BSA: 1.65 Order #: [id number] BMI: 29.15 Physicians Procedure Physician: Leno Dickson MD, [facility] Referring MD: Referring MD: Staff Name Position Time In Cheryl Orellana RT (R) Pre-Op Nurse 09:00 AM Sabi Thompson RN Pre-Op Nurse 09:00 AM Will Tomlinson RN Pre-Op Nurse 09:00 AM Cheryl Orellana RT (R) Monitor 10:10 AM Lorenza Youssef RT (R) Scrub 10:10 AM Pricila Willams RN Field Placement Director 10:10 AM Indications Indication Pulmonary Hypertension Pre-op clearance Procedures Performed Procedure R\\T\\L HRT ART/VENTRICLE ANGIO Pre-Procedure Checklist Informed consent is complete signed and on chart. H\\T\\P is on chart. ID band is on and ID verified with patient. Patient NPO for procedure The procedure was described for the patient and questions were answered. Blood Pressure: 116/72 ECG is on chart. Rhythm: NSR Plan of Care Patient will tolerate the procedure without complications. Adequate level of comfort will be maintained. Hemodynamics will remain stable Patient will recover from procedure without complications. Respiratory function will be maintained. Cardiac rhythm will remain stable. Patient temperature will be maintained. Patient and/or family have verbalized understanding of the procedure. Patient Education Chief Complaint/Reason for Test: Cardiac Cath Developmental Category: Geriatric (65+ years) Developmentally Appropriate for Age: Yes Learning Barriers: None Education Needs: Procedure Education Method: Verbal Information Taught: Cardiac Cath Educational Evaluation: Able to repeat information Intravenous Access Time IV Size Location DC'd Fluid/Drip Rate Units RN 09:28 AM Started with 20g 1 1/4" Lt Antecubital 0.9NaCl 50 ml/hr Sabi Thompson RN Allergies No Known Allergies Vital Signs Time BP (mmHg) HR (bpm) O2 Sat. RR (bpm) LOC 09:33 AM 116 / 72 116 97 % 15 5 = Fully awake and oriented or at pre-proc level 10:22 AM / % 4 = Oriented but drowsy 11:56 AM 109 / 72 80 98 % 20 10:15 AM 110 / 70 83 95 % 0 11:18 AM 104 / 63 78 94 % 28 11:21 AM 103 / 63 79 94 % 20 11:57 AM 109 / 72 80 97 % 15 12:02 PM 112 / 71 80 94 % 24 12:07 PM 109 / 69 80 83 % 21 Procedural Medications Time Medication Dose Units Method Given By 10:21 AM Oxygen 2 L/min nasal cannula Kassandra Chen RN 10:22 AM Versed 2 mg Intravenous Kassandra Chen RN 10:22 AM Fentanyl 50 mcg Intravenous Kassandra Chen RN 10:36 AM Versed 1 mg Intravenous Pricila Willams RN 10:37 AM Fentanyl 25 mcg Intravenous Pricila Willams RN 10:37 AM Lidocaine 2% 20 ml Subcutaneous Leno Dickson MD, [facility] 10:42 AM Oxygen 0 L/min nasal cannula Pricila Willams RN 11:04 AM Versed 1 mg Intravenous Pricila Willams RN 11:04 AM Fentanyl 25 mcg Intravenous Pricila Willams RN 11:09 AM Lidocaine 2% 10 ml Subcutaneous Leno Dickson MD, [facility] ASA Classification: CLASS II- Mild systemic disease (i.e. well-controlled diabetes, hypertension, asthma, cigarette smoking) Danilo Score Preprocedure Postprocedure Activity 1- Moves 2 extremities sustained head lift Activity Circulation 2- SBP +/= 20 points of pre-anesthetic level Circulation Consciousness 2- Awake and alert oriented x 3 Consciousness O2 Saturation 2- Able to maintain O2 satruation of 92% on room air O2 Saturation Respiratory 2- Able to deep breathe and cough well Respiratory Total Score 9 Total Score Contrast Agent: Isovue Diagnostic Contrast: 44 ml Total Contrast: 44 ml Fluoro Dose: 230 mGy Procedure Log Time Note Enter By 09:30 AM Risk for fall? Yes, Sensory deficit (altered perception, Neuro-sensory deficits) [email or web address] 09:30 AM Evidence of mental, physical, or emotional abuse? No [email or web address] 09:30 AM Does patient have suicidal ideations? No [email or web address] 10:05 AM CathStat 10:10 AM Pt arrived to slab installer 2 at 10:10 [email or web address] 10:10 AM Cheryl Orellana RT (R) Position: Monitor Time in: 10:10 [email or web address] 10:10 AM Lorenza Youssef RT (R) Position: Scrub Time in: 10:10 [email or web address] 10:10 AM Pricila Willams RN Position: Field Placement Director Time in: 10:10 [email or web address] 10:12 AM Patient charges- Angio tray pack, Navilyst 3mm J, Pulse Oximetry and ACIST tubing and transducer [email or web address] 10:12 AM IV Supplies used: J loop Angio Cath. [email or web address] 10:13 AM Case Delayed No [email or web address] 10:14 AM NIBP STAT measurement started. 10:15 AM HR=83 bpm, NEFZ=312/70 mmhg, SpO2=95.0 %, Resp=0 B/min, Comment=NSR 10:15 AM Hair removed from procedure site in holding area using clippers. Bilateral groin prepped with Chloraprep by Cheryl Orellana), safety strap applied then patient was draped. Skin intact. [email or web address] 10:15 AM Physician arrived 10:15 [email or web address] 10:15 AM Meet and kelli completed [email or web address] 10:15 AM Sign in performed according to hospital policy. [email or web address] 10:15 AM Procedure start 10:15 [email or web address] 10:16 AM Time: 10:16 Oxygen on at 2 L/min per nasal cannula by Kassandra Chen RN [email or web address] 10:16 AM Time: 10:16 Versed 2 mg Intravenous Given by Kassandra Chen RN [email or web address] 10:16 AM Time: 10:16 Fentanyl 50 mcg Intravenous Given by Kassandra Chen RN [email or web address] 10:16 AM Time: 10:16 Patient comfortable and pain free: Yes [email or web address] 10:22 AM Time: 10:22LOC: 4 = Oriented but drowsy [email or web address] 10:26 AM Recorded ECG: HR=83 Condition=Condition 1 10:27 AM Pressure channel 1 zeroed. 10:27 AM Pressure channel 2 zeroed. 10:28 AM Pressure channel 2 zero failed. 10:30 AM ASA Class CLASS II- Mild systemic disease (i.e. well-controlled diabetes, hypertension, asthma, cigarette smoking) [email or web address] 10:32 AM Pressure channel 2 zero failed. 10:33 AM Pressure channel 2 zeroed. 10:33 AM Pressure channel 1 zeroed. 10:34 AM Pressure channel 1 zeroed. 10:36 AM Time out performed according to hospital policy [email or web address] 10:36 AM Time: 10:36 Versed 1 mg Intravenous Given by Pricila Willams RN [email or web address] 10:37 AM Time: 10:37 Fentanyl 25 mcg Intravenous Given by Pricila Willams RN [email or web address] 10:38 AM Time: 10:37 20 ml Lidocaine 2% to right groin Subcutaneous Given by Leno Dickson MD, [facility] [email or web address] 10:38 AM Access obtained by percutaneous puncture. 7Fr 11cm Cordis Elina sheath placed in right Femoral vein. [id number] [email or web address] 10:40 AM Unsuccessful access attempt # 1 into the right Femoral artery. Manual pressure applied to achieve hemostasis.. [email or web address] 10:41 AM Access obtained by percutaneous puncture. 5Fr 10cm Terumo [place] sheath placed in right Femoral artery. [id number] [email or web address] 10:42 AM 7 F Empathica Arnegard-Karen straight tip inserted through venous sheath [email or web address] 10:42 AM Time: 10:42 Oxygen on at 0 L/min per nasal cannula by Pricila Willams RN [email or web address] 10:43 AM Catheter removed [email or web address] 10:44 AM 5Fr FL 4 catheter inserted over the wire DN [email or web address] 10:45 AM LCA angiography performed in multiple views. [email or web address] 10:45 AM Recorded Pressure: Ao, HR=83, Condition=Condition 1 (Aorta) Ao 84/54/68 10:46 AM Catheter removed [email or web address] 10:47 AM Lesion found in Proximal LAD. Pre Stenosis: 75 Pre FRANCIS Flow: 1: Slow Penetration without Perfusion [email or web address] 10:47 AM Lesion found in LMCA. Pre Stenosis: 90 Pre FRANCIS Flow: 2: Partial Flow/Perfusion (> 1 but < 3) [email or web address] 10:48 AM Lesion found in Proximal Circumflex. Pre Stenosis: 99 Pre FRANCIS Flow: 1: Slow Penetration without Perfusion [email or web address] 10:48 AM 5Fr FR 4 catheter inserted over the wire DN [email or web address] 10:49 AM RCA angiography performed in multiple views. [email or web address] 10:49 AM Recorded Pressure: Ao, HR=83, Condition=Condition 1 (Aorta) Ao 87/68/77 10:49 AM Lesion found in Proximal RCA. Pre Stenosis: 90 Pre FRANCIS Flow: 2: Partial Flow/Perfusion (> 1 but < 3) [email or web address] 10:50 AM Catheter removed [email or web address] 10:50 AM 5Fr Pigtail catheter inserted over the wire [facility] [email or web address] 10:50 AM Lesion found in Right PDA. Pre Stenosis: 90 Pre FRANCIS Flow: 2: Partial Flow/Perfusion (> 1 but < 3) [email or web address] 10:50 AM Lesion found in Mid LAD. Pre Stenosis: 60 Pre FRANCIS Flow: 2: Partial Flow/Perfusion (> 1 but < 3) [email or web address] 10:52 AM Catheter selectively placed in left ventricle [email or web address] 10:52 AM Recorded Pressure: LV, HR=85, Condition=Condition 1 (Left Ventricle) LV 109/1/9 10:52 AM Bolus angiogram of left Ventricle complete: 12 ml/sec for a total of 30 mls [email or web address] 10:53 AM Recorded Pressure: LV, Ao, HR=84, Condition=Condition 1 (Left Ventricle) LV 110/0/30, (Aorta) Ao 78/29/50 10:59 AM Prepping Rt arm for RHC. [email or web address] 11:04 AM Time: 11:04 Versed 1 mg Intravenous Given by Pricila Willams RN [email or web address] 11:04 AM Time: 11:04 Fentanyl 25 mcg Intravenous Given by Pricila Willams RN [email or web address] 11:10 AM Time: 11:09 10 ml Lidocaine 2% to right jugular Subcutaneous Given by Leno Dickson MD, [facility] [email or web address] 11:11 AM Pressure channel 1 zeroed. 11:11 AM Micro-Introducer Kit utilized for sheath placement [email or web address] 11:12 AM Access obtained by percutaneous puncture. 5Fr 11cm Cordis Elina sheath placed in right Jugular vein. [id number] [email or web address] 11:14 AM 5 F DeRoyal Arnegard-Karen straight tip inserted through venous sheath [email or web address] 11:16 AM Recorded Pressure: PCW, HR=80, Condition=Condition 1 (Pulmonary Capillary Wedge) PCW / 11:17 AM Pressure channel 1 zeroed. 11:17 AM Recorded Pressure: MPA, HR=82, Condition=Condition 1 (Main Pulmonary Artery) MPA 11:17 AM Recorded Pressure: PCW, HR=81, Condition=Condition 1 (Pulmonary Capillary Wedge) PCW 1615/13 11:17 AM NIBP STAT measurement started. 11:18 AM HR=78 bpm, ETZU=174/63 mmhg, SpO2=94.0 %, Resp=28 B/min, Comment=NSR 11:18 AM Recorded Pressure: Ao, HR=82, Condition=Condition 1 (Aorta) Ao 114/56/78 11:20 AM Recorded Pressure: MPA, HR=81, Condition=Condition 1 (Main Pulmonary Artery) MPA 11:20 AM NIBP STAT measurement started. 11:21 AM Recorded Pressure: Ao, HR=79, Condition=Condition 1 (Aorta) Ao 114/56/78 11:21 AM HR=79 bpm, FLHC=180/63 mmhg, SpO2=94.0 %, Resp=20 B/min, Comment=NSR 11:22 AM Thermo CO in process. 11:27 AM Recorded Pressure: RV, HR=77, Condition=Condition 1 (Right Ventricle) RV 11:27 AM Recorded Pressure: RA, HR=78, Condition=Condition 1 (Right Atrium) RA 11:30 AM Right heart hemodynamics, O2 saturations and Cardiac Outputs obtained. [email or web address] 11:30 AM Arnegard-Karen catheter removed with balloon intact [email or web address] 11:30 AM Saturation: Site=Ao (Aorta) , O2=92 %, Condition=Condition 1. Used in calculation. 11:30 AM Saturation: Site=RA (Right Atrium) , O2=61.5 %, Condition=Condition 1. Used in calculation. 11:30 AM Saturation: Site=PA (Pulmonary Artery) , O2=60.6 %, Condition=Condition 1. Used in calculation. 11:32 AM Procedure completed at 11:32 [email or web address] 11:33 AM Sign out completed: Radiation Dose 230.06 mGy Fluoro Time: 4.4 Isovue 370 - 200ml contrast 44 ml given by Leno Dickson MD, [facility]. Complications: NoneCardiac Rehab Consult needed: YesConfirmed administered medications: Yes [email or web address] 11:33 AM Isovue 370 - 200ml,1 Bottle(s) used. [email or web address] 11:33 AM Post ECG NSR [email or web address] 11:33 AM Post Blood Pressure 103/63 [email or web address] 11:33 AM Information taught Cardiac Cath [email or web address] 11:33 AM Education needs Procedure, Plan of Care, and Disease Process [email or web address] 11:34 AM Learning barriers :None [email or web address] 11:34 AM Education Methods Verbal [email or web address] 11:34 AM Education evaluation Able to repeat information [email or web address] 11:34 AM Complications: None [email or web address] 11:46 AM Arterial sheath pulled using manual compression and V+ Pad for 15 minutes by Lorenza Youssef RT (R) [email or web address] 11:47 AM Coronary Dominance: right [email or web address] 11:50 AM Family placed in consult room. [email or web address] 11:54 AM Site status No bleeding/hematoma - Rt Groin as reported by Lorenza Youssef RT (R) at 11:54 [email or web address] 11:54 AM Opsite applied [email or web address] 11:54 AM Venous sheath pulled using manual compression and for 10 minutes by Christine Munoz RN [email or web address] 11:55 AM Report given to Kassandra BEAVER Pt taken to ICU Room #8. 11:54 [email or web address] 11:55 AM Delay to floor No [email or web address] 11:55 AM Complications: None [email or web address] 11:56 AM Vitals capture started with the following parameters, Patient=Adult, Interval=5 min, Initial Xjohhxkn=624 mmHg, Deflation Rate=5 mmHg, Cuff placed on Right Arm 11:57 AM HR=80 bpm, OJKM=383/72 mmhg, SpO2=97.0 %, Resp=15 B/min, Comment=NSR 11:58 AM [ Start Thermo CO sample ] 12:02 PM HR=80 bpm, BULA=838/71 mmhg, SpO2=94.0 %, Resp=24 B/min 12:07 PM HR=80 bpm, ZWUE=027/69 mmhg, SpO2=83 %, Resp=21 B/min 12:17 PM Site status No bleeding/hematoma - neck as reported by Christine Munoz RN at 12:16 [email or web address] 12[facility] PM Opsite applied [email or web address] 12:18 PM Patient out of room: 12:18 [email or web address] Complications Complication None None None Hemodynamics Pressures Site Systolic/A Wave Diastolic/V Wave Mean AO 84 54 68 AO 87 68 77 LV 109 1 9 LV 110 0 30 AO 78 29 50 PCW 23 27 21 MPA 30 18 24 PCW 16 15 13 AO 114 56 78 MPA 30 19 25 AO 114 56 78 RV 29 18 20 RA 11 10 9 Oximetry Site Saturation AO 92 AO 92 RA 61.5 RA 61.5 PA 60.6 PA 60.6 Post Procedure Information Blood Pressure: 103/63 mmHg Rhythm: NSR Post procedural instructions were not given Surgery consult for CABG Site Checks Time Location Status Staff Sheath In? Note 11:54 AM Rt Groin No bleeding/hematoma Lorenza Youssef RT (R) 12:16 PM neck No bleeding/hematoma Christine Munoz RN Pulses Time Site Pre-Procedure Post-Procedure Note 04/16/2017 9:28:00 AM Bilateral DP 2+ 04/16/2017 9:28:00 AM Bilateral PT Doppler 04/16/2017 9:28:00 AM Rt Radial Doppler 04/16/2017 9:29:00 AM Lt Radial 1+ Updated by Cheryl Orellana RT(R) on 04/16/2017 12:17:52 PM electronically signed on 04/16/2017 12:19:08 PM with status of Final
[2017-04-16] MEDS: 0.9 % Sodium Chloride 1,000 ML IVC SCH ×2 (12:30→21:59)
[2017-04-16] MEDS ORDERED: *HR* Heparin 5,000 UNIT/ML VIAL IVP PRN ×2 (13:16)
[2017-04-16] MEDS ORDERED: *HR* Heparin 5,000 UNIT/ML VIAL IVP ONE (13:16)
[2017-04-16] MEDS ORDERED: Heparin 25,000 UNIT/500 ML D5W 25,000 UNIT/500 ML MLS IVC SCH (13:30)
--- NOTE | 2017-04-16 13:30 | Cardiothoracic Consult Note ---
Date of Encounter: 04/16/17 Time of Encounter: 13:25 Assessment and Plan (1) Ventricular fibrillation Current Visit: No Status: Resolved The assessment and plan as outlined above was discussed with the patient and/or family members who expressed understanding and agreement. All questions were answered. The patient is at high risk for coronary artery bypass grafting. The increased risk is due to her age of 86 and decreased ventricular function. The LAD, diagonal and posterior descending branch of the right coronary artery are all bypassable. The circumflex is small, but may be bypassable. I discussed the case with my partner Dr. Hicks and with Dr. Lopez our cardiac anesthesiologist and the 3 of us feel that this would best be done in [place] because of the increased risk. This was discussed with the patient and her family and they are agreeable. - History of Present Illness History of present illness: Ms. Bustos is a 86 year old female History of present illness. The patient is an 86-year-old female who has a history of previous stents. In January of this year she had an echocardiogram which revealed an ejection fraction of 65% with normal left ventricular function. She did have a moderate to severely dilated left atrium. She had mild to moderate aortic stenosis, mild aortic regurgitation, mild to moderate mitral stenosis, mild to moderate mitral regurgitation, moderate tricuspid regurgitation and moderate pulmonary hypertension. She was seen in [place] for possible knee replacement. However, she had a urinary tract infection. She was admitted here where she had a complicated course. She had a V. fib arrest. She had a C. difficile. And she had blood clots requiring a filter placement. She was discharged to an extended care facility. She recently went home. She has had no chest pain. She was having routine cardiac catheterization today. Ejection fraction was only 25-30%. She had left main disease with triple-vessel disease. She does have bypassable vessels. The posterior descending branch of the right, the diagonal branch and the LAD are bypassable. The circumflex is small and may or may not be bypassable. Past medical history is notable for no hypertension. She does have increased cholesterol. No diabetes. Social history she lives with her family in [place]. 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 Does not smoke and does not drink. Family history is positive for coronary artery disease. Review of systems is notable for partial colectomy for prolapse done in October. Past Med Surg Social Fam HX - Past Medical History Medical history: arthritis, coronary artery disease, hyperlipidemia, hypertension Psychiatric history: no psych history - Social History Smoking Status: Never smoker Smokeless Tobacco Status: No Alcohol use: none Drug use: none - Family History Mother Living Status: Hx Family Cardiac Disorders: Yes Hx Family Respiratory Disorders: No Hx Family Cancer: No Hx Family GI Disorders: No Hx Family Endocrine Disorder: Yes (Diabetic) Hx Family Neuromuscular Disorders: No Hx Family Neurologic Disorders: No Hx Family HEENT Disorders: No Hx Family Autoimmune Disorders: No Medications and Allergies Multivitamin [Multivitamins] 1 tab PO DAILY 10/14/16 [History] OxyCODONE/APAP 7.5/325 [Percocet 7.5/325 MG] 1 each PO Q3HR PRN #12 tablet 03/18 [Rx] Diclofenac Sodium [Voltaren] 4 gm TP QID PRN #4 gel..gram. 04/01/17 [Rx] Magnesium Oxide [Mag-Ox] 400 mg PO TID #60 tablet 04/01/17 [Rx] Omeprazole [PriLOSEC] 20 mg PO BIDAC #30 capsule.dr 04/01/17 [Rx] Simvastatin [Zocor] 40 mg PO HS #30 tablet 04/01/17 [Rx] Docusate [Colace] 100 mg PO DAILY PRN 04/16/17 [History] Ferrous Sulfate [Iron] 325 mg PO DAILY 04/16/17 [History] Furosemide [Lasix] 40 mg PO DAILY 04/16/17 [History] HYDROcodone/Acet 5/325 mg [[place] 5-325 mg] 1 tab PO Q6H PRN 04/16/17 [History] LORazepam [Ativan] 0.5 mg PO TID PRN 04/16/17 [History] Metoprolol XL (24 HR) Succ [Toprol Xl] 25 mg PO DAILY 04/16/17 [History] Potassium Chloride 20 meq PO BID 04/16/17 [History] Allergies No Known Allergies Allergy (Verified 04/16/17 08:55) All Systems Review: A 10-system review of systems was performed and is negative for pertinent findings except as documented above in the HPI. Physical Examination Pupils are equal, round and reactive to light and accommodation. She is edentulous. Neck is supple. Trachea in the midline. No thyromegaly or carotid bruits. Lungs are clear to percussion and auscultation. Heart is in a normal sinus rhythm. There is a 2/6 systolic murmur. Abdomen is benign. No tenderness, rebound or guarding. Extremities have 2+ pitting edema. No saphenous veins varicosities or strippings. Cranial nerves, motor and sensory intact. She is awake, alert and oriented 3. Consult Discharge Plan - Plan Referrals: Moreno Lara Jr, MD [Primary Care Provider] -
[2017-04-16] MEDS ORDERED: *HR* LORazepam 0.5 MG TABLET PO PRN (13:32)
[2017-04-16] MEDS ORDERED: (Diclofenac Sodium [Voltaren] 4 GM) TP PRN (13:32)
[2017-04-16] MEDS ORDERED: *HR* HYDROcodone/Acet 5/325 mg TABLET PO PRN (13:32)
[2017-04-16] MEDS ORDERED: Multivit/Ca/Min/Fe/FA 1 TAB TABLET PO SCH (13:45)
[2017-04-16] MEDS ORDERED: Metoprolol XL (24 HR) Succ 25 MG TAB.ER.24H PO SCH (13:45)
[2017-04-16] MEDS ORDERED: Furosemide 40 MG TABLET PO SCH (13:45)
[2017-04-16] MEDS: Magnesium Oxide 400 MG TABLET PO SCH ×2 (14:07→19:46)
[2017-04-16] MEDS: *HR* OxyCODONE/APAP 7.5/325 TABLET PO PRN ×2 (14:07→19:46)
[2017-04-16 14:28] LABS: INR 1.1; Prothrombin Time 11.5 Seconds (9.4-12.1)
[2017-04-16 14:31] LABS: Activated Partial Thrombo Time 27.5 Seconds (26.0-36.0)
[2017-04-16 14:37] LABS: Hematocrit 36.6 % (35.3-44.9); Hemoglobin 11.2 g/dL (11.5-15.4); Mean Corpuscular HGB Conc 30.6 g/dL (31.6-35.5); Mean Corpuscular Hemoglobin 29.8 pg (28.0-33.3); Mean Corpuscular Volume 97.3 fL (83.0-100.0); Platelet Count 302 K/mcL (140-400); Red Blood Count 3.76 M/mcL (3.82-4.97); Red Cell Distribution Width 14.8 % (11.5-14.5)
--- NOTE | 2017-04-16 15:11 | Invasive Diagnostic Lab ---
Name: Jenni Bustos Date of Study: 04/16/2017 Date: 1930 Ht: 152.4 cm /60.0 in Medical Record#: [id number] Age: 86 Wt: 67.7 kg / 149.25 lb Account/Order#: [id number] Gender: Female BSA: 1.65 Order #: [id number] Fluoro Dose: 230 mGy BMI: 29.15 Procedure Physician: [facility] Dickson [facility], [facility] Referring MD: Referring MD: Procedures Performed: RHC/LHC Indications: Pulmonary Hypertension, Pre-op clearance, Recent Hospitalization with VF arrest Impressions: There is severe three vessel coronary artery disease. The left ventricle is normal and has abnormal contractility EF 30% There is mild pulmonary hypertension. Moderate-severe Mitral Regurgitation. Mild aortic stenosis Recommendations: Aggressive risk factor modification. Optimal medical therapy of patient's disease. Suggest patient have Urgent coronary artery bypass surgery. History/Risk Factors: cad DVT IVC FILTER DJD Hypertension Dyslipidemia Family History of CAD Previous PCI Procedure Access obtained in the right Femoral artery by percutaneous puncture Access obtained in the right Jugular vein. A 5 [place]amanian catheter was introduced via the venous sheath, balloon was inflated and catheter was advanced through the right heart chambers into the pulmonary artery capillary wedge position. Right sided pressures were obtained. Complications: None Contrast: Isovue 44ml Hemodynamics: Pressures Site Systolic/ A Wave Diastolic/ V Wave End Diastolic/ Mean HR AO 84 54 68 83 AO 87 68 77 83 LV 109 1 9 85 LV 110 0 30 85 AO 78 29 50 82 PCW 23 27 21 80 MPA 30 18 24 82 PCW 16 15 13 81 AO 114 56 78 82 MPA 30 19 25 81 AO 114 56 78 79 RV 29 18 20 77 RA 11 10 9 78 Oximetry Site Saturation AO 92 AO 92 RA 61.5 RA 61.5 PA 60.6 PA 60.6 LV Ventriculography Ejection Method: LV Gram Ejection Fraction: 30% Wall Motion: PEREZ Anterobasal Normal Anterolateral Moderate Hypokinesis Apical: Mild Hypokinesis Inferoapical Moderate Hypokinesis Inferobasal Severe Hypokinesis Coronary Dominance: right Lesion Findings/Interventions * Left Main Coronary Artery There is a 40% stenosis in the LMCA. The lesion has a FRANCIS flow of 2. * Left Anterior Descending There is a 90% stenosis in the ostial LAD and 70% proximal LAD. The lesion has a FRANCIS flow of 3. There is a 50% stenosis in the Mid LAD. The lesion has a FRANCIS flow of 3. * Circumflex There is a 90% stenosis in the Proximal Circumflex. The lesion has a FRANCIS flow of 1. * Right Coronary Artery There is a 90% stenosis in the Proximal RCA. The lesion has a FRANCIS flow of 3 and has severe calcification noted. There is a 90% stenosis in the Right PDA. The lesion has a FRANCIS flow of 3. Updated by RT Maude(R) on 04/16/2017 11:53:10 AM Leno Dickson MD, [facility] electronically signed on 04/16/2017 3:07:31 PM with status of Final
[2017-04-16 19:10] VITALS: BP 96/60
--- NOTE | 2017-04-17 10:46 | Discharge Summary ---
Date of Encounter: 04/16/17 Time of Encounter: 16:00 - Discharge Diagnosis (1) Deep vein thrombosis (DVT) Priority: Secondary Status: Acute Comments: s/p IVC filter Qualifiers: DVT location: lower extremity Affected thrombotic vein of extremity: femoral Laterality: right Chronicity: acute Qualified Code(s): I82.411 - Acute embolism and thrombosis of right femoral vein (2) CAD (coronary artery disease) Priority: Primary Status: Chronic Comments: s/p LHC with EF 30% and severe 3 vessel CAD. Mild pulmonary hypertension. Aspirin, BB, heparin drip. Discussed with Brandy CT surgery, patient will be transferred to [facility] for further evaluation of high risk CABG. Qualifiers: Coronary Disease-Associated Artery/Lesion type: [place] artery [place] vs. transplanted heart: [place] heart Associated angina: without angina Qualified Code(s): I25.10 - Atherosclerotic heart disease of [place] coronary artery without angina pectoris (3) Ventricular fibrillation Priority: Primary Status: Resolved Comments: s/p VF arrest during last hospitalization a couple of weeks ago. Urgent CABG - Discharge Medications Home Medications: Multivitamin [Multivitamins] 1 tab PO DAILY 10/14/16 [History] Diclofenac Sodium [Voltaren] 4 gm TP QID PRN #4 gel..gram. 04/01/17 [Rx] Magnesium Oxide [Mag-Ox] 400 mg PO TID #60 tablet 04/01/17 [Rx] Omeprazole [PriLOSEC] 20 mg PO BIDAC #30 capsule. 04/01/17 [Rx] Simvastatin [Zocor] 40 mg PO HS #30 tablet 04/01/17 [Rx] Docusate [Colace] 100 mg PO DAILY PRN 04/16/17 [History] Ferrous Sulfate [Iron] 325 mg PO DAILY 04/16/17 [History] Furosemide [Lasix] 40 mg PO DAILY 04/16/17 [History] LORazepam [Ativan] 0.5 mg PO TID PRN 04/16/17 [History] Metoprolol XL (24 HR) Succ [Toprol Xl] 25 mg PO DAILY 04/16/17 [History] Oxycodone HCl/Acetaminophen [Percocet 10-325 mg Tablet] 1 each PO Q6H PRN [History] Potassium Chloride 20 meq PO BID 04/16/17 [History] Allergies/Adverse Reactions: Allergies No Known Allergies Allergy (Verified 04/16/17 08:55) Procedures/tests Complete & Pending: Procedures Performed prior 72 hours Category Date Time Status CL Cardiac Catheterization [CL] Routine Bridge Operator 04/16/17 09:16 Completed Date of admission: 04/16/17 12:53 Primary care physician: Moreno Lara Jr, MD Consults: 04/16/17 13:17 Consult to Cardiothoracic Surgery [CONS] Routine Consulting Provider: Cardiothoracic Surgery Brandy Reason for Consult: MVD Time Notified: 12:00 Call Completed: Yes Discharging clinician: Leno Dickson - Patient Status Disposition: Transfer Critical Access Hosp Condition: Fair Functional capacity at discharge: independent ambulation Overall status at discharge: patient is progressing back to baseline - Discharge Instructions Follow Up With: Moreno Lara Jr, MD [Primary Care Provider] - - Hospital Course Hospital course: Ms. Bustos is a 86 year old female - Time Spent with Patient Total time spent providing and/or coordinating discharge services: Greater than 30 minutes Specific discharge activities: coordination of transfer Physical Examination General: Conversant HEENT: Atraumatic, Normocephaly Neck: No JVD Cardiac: Reg Rate and Rhythm Lungs: Normal Breath Sounds Neuro: Alert and responsive Abdomen: Soft Skin: No rashes noted on visualized skin Musculoskeletal: No Chest Wall Tenderness Extremities: No Edema
== END 2017-04-16 21:58 | disposition critical access hospital (66) | DRG 286 ==
LOC: INVDIALAB 08:34 → ICNU 12:53
PROVIDERS: ADMIT Emergency Medicine; ATTEND Emergency Medicine

== ENCOUNTER 2019-10-04 14:16 | Observation (INO) ==
[2019-10-04 15:02] LABS: Basophils % 0.3 %; Hematocrit 39.7 % (35.3-44.9); Hemoglobin 13.4 g/dL (11.5-15.4); Immature Granulocytes % 0.4 % (0-4); Lymphocytes # 0.9 K/mcL (0.6-4.6); Lymphocytes % 8.8 %; Mean Corpuscular HGB Conc 33.8 g/dL (31.6-35.5); Mean Corpuscular Hemoglobin 31.8 pg (28.0-33.3); Mean Corpuscular Volume 94.1 fL (83.0-100.0); Mean Platelet Volume 10.1 fL (9.4-12.4); Monocytes # 0.5 K/mcL (0.0-1.3); Monocytes % 4.7 %; Neutrophils # 8.9 K/mcL (1.6-8.9); Platelet Count 258 K/mcL (140-400); Red Blood Count 4.22 M/mcL (3.82-4.97); Red Cell Distribution Width 12.7 % (11.5-14.5); Segmented Neutrophils % 85.8 %; White Blood Count 10.3 K/mcL (4.3-11.1)
[2019-10-04 15:26] LABS: BUN/Creatinine Ratio 17 (6-26); Blood Urea Nitrogen 13 mg/dL (8-23); Calcium 9.7 mg/dL (8.6-10.3); Carbon Dioxide 25 mEq/L (23-29); Chloride 102 mEq/L (98-107); Glucose 204 mg/dL (70-105); Osmolality,Calculated 298 (280-300); Potassium 4.1 mEq/L (3.5-5.1); Sodium 141 mEq/L (136-145); eGFR For African Americans > 60 (> 60); eGFR For Non-African Americans > 60 (> 60)
[2019-10-04] MEDS ORDERED: 0.9 % Sodium Chloride 500 ML IVC ONE (15:29)
[2019-10-04] MEDS ORDERED: Ondansetron 4 MG/2 ML VIAL IVP STA (15:29)
[2019-10-04] MEDS ORDERED: Aspirin 81 MG TAB.CHEW PO ONE (15:30)
[2019-10-04] MEDS ORDERED: Aspirin 81 MG TAB.CHEW ONE (15:34)
[2019-10-04] MEDS ORDERED: Isovue-370 500 ML BOTTLE IVP ONE (15:50)
[2019-10-04 16:15] LABS: Troponin I < 0.03 ng/mL (< 0.04)
[2019-10-04] MEDS: *HR* HYDROmorphone (PF) 1 MG/ML SYRINGE IVP ONE ×2 (16:19→19:23)
[2019-10-04 18:12] LABS: Alanine Aminotransferase 8 Units/L (7-52); Albumin 4.1 g/dL (3.5-5.7); Albumin/Globulin Ratio 1.5 (1.1-2.2); Alkaline Phosphatase 131 Units/L (34-104); Aspartate Amino Transferase 17 Units/L (13-39); Bilirubin,Direct 0.1 mg/dL (0.0-0.2); Bilirubin,Indirect 0.7 mg/dL (0.0-1.0); Bilirubin,Total 0.8 mg/dL (0.3-1.0); Globulin 2.7 g/dL (2.4-3.5); Lipase 13 Units/L (11-82); Total Protein 6.8 g/dL (6.4-8.9)
[2019-10-04] MEDS ORDERED: Ondansetron 4 MG/2 ML VIAL IVP ONE (19:00)
[2019-10-04] MEDS ORDERED: *HR* HYDROmorphone 2 MG/ML SYRINGE IVP STA (19:00)
[2019-10-04] MEDS ORDERED: *HR* HYDROmorphone (PF) 1 MG/ML SYRINGE IVP STA (19:17)
[2019-10-05] MEDS ORDERED: Ondansetron 4 MG/2 ML VIAL IVP PRN (00:02)
[2019-10-05] MEDS ORDERED: Naloxone 0.4 MG/ML INJ IVP PRN (00:02)
[2019-10-05 01:59] LABS: Basophils % 0.1 %; Hematocrit 38.4 % (35.3-44.9); Hemoglobin 12.7 g/dL (11.5-15.4); Immature Granulocytes % 0.4 % (0-4); Lymphocytes # 0.8 K/mcL (0.6-4.6); Lymphocytes % 5.1 %; Mean Corpuscular HGB Conc 33.1 g/dL (31.6-35.5); Mean Corpuscular Hemoglobin 32.1 pg (28.0-33.3); Mean Platelet Volume 10.4 fL (9.4-12.4); Monocytes # 1.4 K/mcL (0.0-1.3); Monocytes % 9.2 %; Neutrophils # 13.3 K/mcL (1.6-8.9); Platelet Count 209 K/mcL (140-400); Red Blood Count 3.96 M/mcL (3.82-4.97); Red Cell Distribution Width 12.6 % (11.5-14.5); Segmented Neutrophils % 85.2 %
[2019-10-05 02:00] LABS: White Blood Count 15.6 K/mcL (4.3-11.1)
[2019-10-05 02:23] LABS: Alanine Aminotransferase 7 Units/L (7-52); Albumin/Globulin Ratio 1.7 (1.1-2.2); Alkaline Phosphatase 126 Units/L (34-104); Aspartate Amino Transferase 15 Units/L (13-39); BUN/Creatinine Ratio 18 (6-26); Bilirubin,Total 0.6 mg/dL (0.3-1.0); Blood Urea Nitrogen 13 mg/dL (8-23); Calcium 9.3 mg/dL (8.6-10.3); Carbon Dioxide 28 mEq/L (23-29); Chloride 105 mEq/L (98-107); Globulin 2.4 g/dL (2.4-3.5); Glucose 165 mg/dL (70-105); Osmolality,Calculated 296 (280-300); Potassium 4.5 mEq/L (3.5-5.1); Sodium 141 mEq/L (136-145); Total Protein 6.4 g/dL (6.4-8.9); eGFR For African Americans > 60 (> 60); eGFR For Non-African Americans > 60 (> 60)
[2019-10-05] MEDS: *HR* Heparin 5,000 UNIT/ML VIAL SQ SCH ×2 (05:45→16:28)
[2019-10-05] MEDS ORDERED: Regadenoson 0.4 MG/5 ML SYRINGE IVP ONE (09:59)
[2019-10-05] MEDS ORDERED: *HR* LORazepam 0.5 MG TABLET PO PRN (13:28)
[2019-10-05] MEDS ORDERED: Furosemide 40 MG TABLET PO SCH (13:30)
[2019-10-05] MEDS: Magnesium Oxide 400 MG TABLET PO SCH ×2 (14:08→20:17)
[2019-10-05] MEDS ORDERED: Metoclopramide 10 MG/2 ML VIAL IVP ONE (16:08)
[2019-10-05] MEDS: Furosemide 40 MG TABLET PO SCH (16:28)
[2019-10-06] MEDS: *HR* Heparin 5,000 UNIT/ML VIAL SQ SCH (05:07)
[2019-10-06 06:46] VITALS: BP 98/63
[2019-10-06] MEDS: Magnesium Oxide 400 MG TABLET PO SCH (07:45)
[2019-10-06] MEDS: Furosemide 40 MG TABLET PO SCH (07:46)
[2019-10-06] MEDS ORDERED: Multivit/Ca/Min/Fe/FA 1 TAB TABLET PO SCH (09:00)
[2019-10-06] MEDS ORDERED: Cholecalciferol (D-3) 1,000 UNIT (25MCG) TABLET PO SCH (09:00)
[2019-10-06] MEDS ORDERED: Aspirin Enteric Coated 81 MG Tablet PO SCH (09:00)
[2019-10-11] MEDS ORDERED: NON-FORMULARY MEDICATION 1 EACH EACH (Alendronate Sodium 70 MG) PO SCH (13:28)
== END 2019-10-06 11:43 | disposition home or self-care (01) ==
LOC: EMEROOARM 14:16 → 2ANU 14:16 → SUATTDRO 20:36 → 2ANU 20:53
PROVIDERS: ADMIT Internal Medicine; ATTEND Family Medicine